=== PATIENT | female | born 1940 | race Caucasian/White ===

== ENCOUNTER 2023-09-01 17:22 | Observation (INO) | payer MEDICARE, OTHER, SELFPAY ==
--- OUTSIDE RECORDS SUMMARY | 2023-09-01 17:26 | XMS_ITS | Clinical Summary ---
Author Name Unknown Organization [facility] Address [place], [place] [address] Care Team Providers Care Mobile Home Laborer Name Role Phone Angel Lawson MD Primary Care Provider [phone] Allergies Active Allergy Reactions Criticality Noted Date Comments Lisinopril Hives Unknown 01/09/2007 Medications Medication Sig Dispensed Refills Start Date End Date Status methyl salicylate-menthol (CYRIL CAGE; MENTHOLATUM DEEP HEAT) ointment Apply topically to affected area(s) 3 times daily if needed for Arthritis or Pain. 0 8 Active medication order composerIndications:Acut e diastolic congestive heart failure (HC),Chronic bilateral low back pain without sciatica Motorized wheelchair diagnosis: chronic low back pain, weakness, diastolic CHF 1 unit 0 8 Active mupirocin (BACTROBAN OINTMENT) ointmentIndications:Epis taxis Apply a small amount (pea sized) with finger or cotton swab twice daily, pinch nostril closed 22 g 11 1 Active calcium carbonate (Calcium 600) 600 mg calcium (1,500 mg) tabletIndications:Osteop orosis screening Take 1 Tablet (600 mg) by mouth 2 times daily with meals. 180 Tablet 3 2 Active Walker - 4 wheelsIndications:Spinal stenosis of lumbar region without neurogenic claudication Walker with seat. For home use. Length of need: 99 1 Each 0 2 Active durable medical equipment (DME)Indications:Spinal stenosis of lumbar region without neurogenic claudication Recliner with lift 1 Each 0 2 Active fluticasone propion-salmeteroL (Advair HFA) 230-21 mcg/actuation inhalerIndications:Moder ate persistent asthma without complication Inhale 2 Puffs by mouth two times daily. 3 Each 3 2 Active potassium chloride (MICRO-K) 10 mEq Controlled-release capsuleIndications:Edema , unspecified type TAKE 1 CAPSULE DAILY NEEDED WITH THE LASIX 30 Capsule 11 3 Active furosemide (LASIX) 20 mg tabletIndications:Edema, unspecified type TAKE 1 TABLET DAILY NEEDED WITH THE POTASSIUM 30 Tablet 11 3 Active dronedarone (Multaq) 400 mg tab tabletIndications:PAF (paroxysmal atrial fibrillation) (HC) Take 0.5 Tablets (200 mg) by mouth two times daily with meals. 90 Tablet 3 3 Active isosorbide mononitrate (IMDUR) 30 mg extended release tablet 24 HourIndications:Acute on chronic diastolic congestive heart failure (HC) TAKE ONE-HALF (1/2) TABLET DAILY 45 Tablet 3 3 Active zolpidem (AMBIEN) 5 mg tabletIndications:Insomn ia due to medical condition Take 1 Tablet (5 mg) by mouth at bedtime. 30 Tablet 5 3 Active prednisoLONE acetate 1% ophthalmic (ECONOPRED PLUS, PRED FORTE, OMNIPRED) suspensionIndications:Nu clear sclerotic cataract of both eyes START DROPS IN AFFECTED EYE AFTER SURGERY, RIGHT EYE 07/03/2023 LEFT EYE 07/31/2023 . ONE DROP FOUR TIMES A DAY FOR THREE WEEKS. 5 mL 2 3 Active warfarin (COUMADIN) 2 mg tabletIndications:Paroxy smal atrial fibrillation (HC),Anticoagulation monitoring, INR range 2-3 Take by mouth 2 mg (2 mg x 1) every day in the evening OR as directed 0 3 Active docusate (COLACE) 100 mg capsule Take one to three capsule's daily as needed 0 3 Active HYDROcodone-acetaminophe n (5-325 mg/tablet)Indications:Co ntrolled substance agreement signed,Chronic bilateral low back pain without sciatica,Spinal stenosis of lumbar region without neurogenic claudication Take 1 tablet by mouth 3 times daily as needed for severe pain 90 Tablet 0 4 Active albuterol HFA (ProAir HFA) 90 mcg/actuation inhalerIndications:Asthm a, unspecified asthma severity, unspecified whether complicated, unspecified whether persistent Inhale 1-2 Puffs by mouth every 4 hours if needed for Shortness Of Breath. 25.5 g 0 4 Active metoprolol succinate (TOPROL XL) 50 mg sustained-release tabletIndications:Essent ial hypertension TAKE ONE-HALF TABLET DAILY 45 Tablet 2 4 Active atorvastatin (LIPITOR) 10 mg tabletIndications:Pure hypercholesterolemia Take 1 Tablet (10 mg) by mouth at bedtime. 90 Tablet 2 4 Active metoprolol succinate (TOPROL XL) 50 mg sustained-release tabletIndications:Essent ial hypertension TAKE ONE-HALF (1/2) TABLET DAILY 45 Tablet 3 4 Active albuterol HFA (PRO-AIR; VENTOLIN; PROVENTIL) 90 mcg/actuation inhalerIndications:Asthm a, unspecified asthma severity, unspecified whether complicated, unspecified whether persistent USE 1 TO 2 INHALATIONS EVERY 4 HOURS IF NEEDED FOR SHORTNESS OF BREATH 25.5 g 6 4 Active gabapentin (NEURONTIN) 300 mg capsuleIndications:Insom antwan due to medical condition TAKE 1 CAPSULE AT BEDTIME 90 Capsule 3 4 Active levothyroxine (SYNTHROID) 112 mcg tabletIndications:Hypoth yroidism, unspecified type Take 1 Tablet (112 mcg) by mouth once daily. 90 Tablet 2 4 Active albuterol HFA (ProAir HFA) 90 mcg/actuation inhalerIndications:Asthm a, unspecified asthma severity, unspecified whether complicated, unspecified whether persistent Inhale 1-2 Puffs by mouth every 4 hours if needed for Shortness Of Breath. 25.5 g 5 2 024 Discontin ued(Reord er (E-cancel not sent)) levothyroxine (SYNTHROID) 112 mcg tabletIndications:Hypoth yroidism, unspecified type TAKE 1 TABLET DAILY 90 Tablet 3 3 024 Discontin ued(Reord er (E-cancel not sent)) metoprolol succinate (TOPROL XL) 50 mg sustained-release tabletIndications:Essent ial hypertension TAKE ONE-HALF TABLET DAILY 45 Tablet 2 3 024 Discontin ued(Reord er (E-cancel not sent)) atorvastatin (LIPITOR) 10 mg tabletIndications:Pure hypercholesterolemia Take 1 Tablet (10 mg) by mouth at bedtime. 90 Tablet 0 3 024 Discontin ued(Reord er (E-cancel not sent)) HYDROcodone-acetaminophe n (5-325 mg/tablet)Indications:Co ntrolled substance agreement signed,Chronic bilateral low back pain without sciatica,Spinal stenosis of lumbar region without neurogenic claudication Take 1 tablet by mouth 3 times daily as needed for severe pain 90 Tablet 0 3 024 Discontin ued(Reord er (E-cancel not sent)) levothyroxine (SYNTHROID) 112 mcg tabletIndications:Hypoth yroidism, unspecified type Take 1 Tablet (112 mcg) by mouth once daily. 90 Tablet 1 4 024 Discontin ued(*Erro r/entry tech error) Active Problems Patient Care Coordination No te Formatting of this note migh t be different from the original. 01/10/2014 These are the most important things for my care team to know about me: ?? It's very important that my doctors are honest with me. ?? I don't want it sugarcoated. I want the blunt truth. ?? Do not talk to my children first. Talk to me because I am the one who has to arrange my life. ?? Don't go behind my back and give out information about me without telling me or getting my permission. 02/19/2013 Brittani Casanova has elected to enroll in the [employer] research project and meets inclusion criteria through diagnosis of heart failure. Paola Denney is assigned as [facility] Care Guide. Paola Denney .................... 02/19/2013 12:18 PM Problem Noted Date Diagnosed Date Cataract 07/31/2023 Opioid dependence, uncomplicated 10/06/2020 Morbid exogenous obesity 10/06/2020 Generalized anxiety disorder 03/05/2019 Depression, major, single episode, moderate 0 03/2019 Essential hypertension 07/07/2018 Prediabetes 11/03/2017 Chronic renal disease, stage 3, moderately decreased glomerular filtration rate between 30-59 mL/min/1.73 square meter 04/05/2016 Anticoagulation monitoring, INR range 2-3 2014 Controlled substance agreement signed 2014 Paroxysmal atrial tachycardia post AF ablation 0 03/25/2012 Epistaxis 03/25/2012 ICD (implantable cardiac defibrillator) in place 12/30/2011 SIMI 03/23/2010 AHI- 28.9 03/04/2011 Issue of repeat prescriptions 01/03/2011 Overview: Micaela #120/month. Spinal stenosis of lumbar re gion without neurogenic claudication 01/03/2011 Generalized osteoarthrosis, unspecified site 03/2011 Osteopenia 01/03/2011 Advance care planning 12/25/2010 Overview: Patient has identified Health Care Agent(s): Yes Add Health Care Agents: Health Care Agent(s): Primary Health Care Agent: Jazmín Cheung Relationship: Daughter (cell) Secondary Health Care Agent: Conservator: Relationship: Phone: Guardian: Relationship: Phone: Patient has Advance Care Plan Documents (Health Care Directive, POLST): POLST, Healthcare Directive, Statement of Treatment Preferences Patient has identified Specific Treatment Preferences: Yes On 06/14/16 Brittani expressed a desire to change her current Statement of Preferences at a future date. On 10/14/14, Brittani completed a new Healthcare Directive naming Jazmín Cheung as her primary healthcare agent. [phone]. Her son tSar Ibrahim is no longer her healthcare agent as of 10/14/14. Understanding of Illness and Disease [place]: Brittani identifies her medical condition as heart failure and describes it as life limiting. She identifies the following symptoms of her medical condition as being the most bothersome: limitations on cleaning the household, walking her dog Blue. Brittani said I have had to limit some of the usual cleaning responsibilities due to physical symptoms of fatigue and shortness of breath. (Paraphrase) Goals of Care: Brittani currently hopes to remain living independently at home for as long as possible, and to live as long as I can, to the best of my ability. Brittani also indicates she always wants Complete Honesty from her healthcare providers regarding her state of health. Brittani has shared that what is most important to her is to be able to communicate, and interact with others. Brittani indicates being on a ventilator would mean she couldn't do this, and this would not be acceptable. Brittani stated she saw her brother when he was on a ventilator, and was impacted very much by this experience. Quality of Life: The following present and future experiences are most important for Brittani to live well: walking with my dog blue, spending time playing cards and socializing with friends, reading, making sure Blue is cared for if I am unable, and living at home as long as possible. Brittani ernesto with serious challenges in her life: Family: Daughter(s) and Son(s) and Friends Brittani stated specifically her children help her through difficult times in life. Brittani identifies the following fears and worries about her medical care: having uncontrolled pain or symptoms, losing mental capacity, and most important to Brittani is to NOT be intubated or placed on a respirator; under any circumstances. Brittani has indicated a strong preference to not go to a fci. Of utmost importance to Brittani is that her children are ok with her dying; that they accept it. Brittani states currently some of her children are in denial about her current health condition, are are unable to view it, or discuss as a terminal illness. Treatment and Care Preferences: Past experiences in dealing with family and/or friends that have or been seriously ill include other family members. As a result of these experiences, Brittani expresses these health care preferences: - Offer food and liquids by mouth - Tube feeding though mouth or nose - Tube feeding directly into GI tract - IV fluid administration If/when Brittani is at the end-stage of her illness or terminally ill, she prefers to receive care at home with hospice. Summary Brittani's Treatment Preferences: LOW SURVIVAL; HIGH TREATMENT BURDEN: If Brittani suffered a serious complication, such that she was facing a prolonged hospital stay, required ongoing medical interventions, and the chance of living through the complication was low (for example, only 5 out of 100 would live), Brittani would choose: To stop all efforts to keep me alive (For me, quality of life is more important than length of life) Brittani stated; make me comfortable, no ventilator under any circumstances. to focus treatment on comfort and quality of life (Quality of life is more important than length of life to Brittani.) HIGH SURVIVAL; LOW FUNCTIONAL STATUS: If Brittani had a serious complication and had a good chance of living through the complication but it was expected that she would never be able to walk or talk again and would require 24 hour nursing care, she would choose: To stop all efforts to keep me alive (For me, quality of life is more important than length of life) I don't want to go to a fci. to focus treatment on comfort and quality of life (Quality of life is more important than length of life to Brittani.) HIGH SURVIVAL; LOW COGNITIVE STATUS: If Brittani had a serious complication and had a good chance of living through the complication but it was expected that she would never know who she was or who she was with and would require 24 hour nursing care, she would choose: To stop all efforts to keep me alive (For me, quality of life is more important than length of life) to focus treatment on comfort and quality of life (Quality of life is more important than length of life to Brittani.) CARDIO-PULMONARY RESUSCITATION (CPR): The facts, risks and benefits of CPR were discussed with Brittani. If she had a sudden event that caused her heart and breathing to stop, she WOULD want CPR attempted unless my physician determines any one of the following; I have an incurable illness or injury and am dying; OR I have no reasonable chance of survival if my heart stops' OR I have little chance of mcfp survival if my heart stops and the process of resuscitation would cause significant suffering. Goals of Treatment (POLST) Brittani selected LIMITED INTERVENTIONS AND TREAT REVERSIBLE CONDITIONS; Use of IV/IM Antibiotic treatment Offer food and liquids by mouth Tube feeding through mouth or nose Tube feeding directly into GI tract IV fluid administration DNI, and no mechanical ventilation. MECHANICAL VENTILATION: If Brittani had an episode where she was unable to breathe on her own, she would choose the following: NO MECHANICAL VENTILATOR do not attempt to assist breathing by non-invasive methods or mechanical ventilation Follow Up Plan: Brittani was encouraged to continue advance care planning discussions with her health care agent Star Ibrahim (son) as well as her other children. Designated Family Member: Star Ibrahim and primary care provider. Advance Care Planning discussion guide was given to Brittani and her health care agent for review. Brittani identified the following concerns during her advance care planning session: Brittani's primary concern as noted throughout this document was under no circumstances to be placed on a ventilator, or be intubated. Questions identified for her primary care provider: Brittani did not have questions at this time of her provider. Documents addressed during this advance care planning session: Health Care Agents identified. Primary health care agent is Star Ibrahim; secondary health care agent is Brittani's other children.. Statement of Treatment Preferences for advanced illness completed and scanned into the medical record. Recommendations/Plan: Brittani and her health care agent to discuss and review Advance Care Plan and completed POLST. Brittani to identify secondary health care agent, and discuss completed POLST with Star (Son) and her other children. Brittani and or health care agents to follow up with this mortgage loan underwriter (CLAUDE Montanez-[employer]) if and when there are questions related to Advance Care Planning, and/or Health Care Agent information/understanding. Brittani would benefit from: Home Care Care Navigation Help Desk Care Navigation brochure(s) was given to Brittani. Advance Care Planning recommendations and Brittani's concerns and questions were cc? ed to her primary provider. Interviewer: KATELYN Montanez, [facility] [phone] 10/13/2013 11:37 AM 10/07/2013 H/O CVA (cerebral vascular accident) 08/03/2010 Overview: -Hospitalized in [place] Superficial phlebitis 08/01/2010 Hyperlipidemia 07/06/2010 Major depression, recurrent 07/06/2010 Hypothyroidism 07/05/2010 Chronic back pain Fibromyalgia Paroxysmal atrial fibrillation Overview: - initial episode 08/01/10: s/p DCCV 08/03/2010 - return to afib: rate control and anticoagulation strategy - 12/03/2010 atrial fibrillation with VR 70's - associated systolic/diastolic acute CHF exacerbation -s/p successful complex atrial fibrillation ablation 02/03/2012 -03/25/2012 incidentally found in afib with RVR (on presentation for bloody nose) *given IV lopressor and converted to NSR - but recurrent afib RVR -03/25/2012 DCCV and start of Flecainide Asthma H/O Diastolic Congestive Heart Failure Overview: -acute exacerbation 07/2010 - associated low EF 45% and afib with RVR -acute exacerbation 12/03/2010 - associated low EF 45% and afib with controlled ventricular response Plan:If weight gain >2 lbs overnight, increase Furosemide (Lasix) to 40 mg twice daily and increase potassium supplement to 20 mEq twice daily that day. Forgetfulness Overview: Patient and daughter attribute this to increased stress at her apartment building. Resolved Problems Problem Noted Date Diagnosed Date Resolved Date Prediabetes 03/05/2019 03/29/2019 Morbid obesity with BMI of 40.0-44.9, adult 03/07/2017 11/02/2018 Right-sided thoracic back pain 12/20/2014 10/11/2021 Sudden cardiac 12/30/2011 019 Hematoma complicating a procedure 12/30/2011 11/11/2014 HTN (hypertension) 07/06/2010 2 Obesity, Class II, BMI 35-39.9 03/07/2017 Acute diastolic congestive heart failure 11/02/2018 Encounters Date Type Department Care Team Description 08/27/2023 Anticoagulation (warfarin) [facility] [address] [place] [address] [facility] Anticoagulation (Home care) 08/22/2023 9:40 AM PROGRAM MANAGER RN Office Visit [facility] [address] [place] [address] Terry Sandoval OD Post-op (3 Week Final IOL POV OS ) 08/22/2023 Travel 08/20/2023 Telephone [facility] [address] [place] [address] Angel Lawson MD Form 08/20/2023 Refill [facility] [address] [place] [address] Angel Lawson MD Refill Request 08/20/2023 Refill [facility] [address] [place] [address] Angel Lawson MD Refill Request (Metoprolol Succinate, Albuterol Hfa, Gabapentin) 08/20/2023 Refill [place] [address] [place] [address] Angel Lawson MD Refill Request (albuterol HFA (ProAir HFA) 90 mcg/actuation inhaler//levothyroxin e (SYNTHROID) 112 mcg tablet 90 Tablet 3 08/13/2022 - No/Sig: TAKE 1 TABLET DAILY//metoprolol succinate (TOPROL XL) 50 mg sustained-release tablet 45 Tablet 2/gabapentin (NEURONTIN) 300 mg capsule (Discontinued)//atorv astatin (LIPITOR) 10 mg tablet 90 Tablet) 08/18/2023 Telephone [place] [address] [place] [address] Angel Lawson MD Form (ORDERS) 08/13/2023 Anticoagulation (warfarin) [place] [address] [place] [address] [facility] Anticoagulation (Poct HC) 08/12/2023 Refill [place] [address] [place] [address] Angel Lawson MD Refill Request (Hydrocodone-acetamin ophen) 08/06/2023 Telephone [place] [address] [place] [address] Angel Lawson MD Concerns (water pill ) 08/06/2023 Telephone [place] [address] [place] [address] Angel Lawson MD Form 08/04/2023 Anticoagulation (warfarin) [address] [place] [address] [facility] Anticoagulation (Home Care ) 08/01/2023 9:40 AM PROGRAM MANAGER RN Office Visit [facility] [address] [place] [address] Terry Sandoval, OD Post-op (1 Day PO OS) 07/31/2023 8:54 AM PROGRAM MANAGER RN - 07/31/2023 9:37 AM PROGRAM MANAGER RN Surgery [address] [address] Singh Valentin MD LEFT CATARACT EXTRACTION WITH LENS IMPLANT 07/31/2023 8:36 AM PROGRAM MANAGER RN Anesthesia Event [address] [address] Genoveva Sy MD 07/31/2023 7:17 AM PROGRAM MANAGER RN - 07/31/2023 9:35 AM PROGRAM MANAGER RN Hospital Encounter [address] [address] Singh Valentin MD Discharge Disposition: Home Self Care 07/31/2023 Travel 07/31/2023 Telephone [facility] [address] [place] [address] Angel Lawson MD Form (ORDER) 07/30/2023 Anticoagulation (warfarin) [facility] [address] [place] [address] [facility] Anticoagulation (Home care) 07/25/2023 3:00 PM PROGRAM MANAGER RN Ancillary Procedure [facility] [address] [place] [address] 07/25/2023 2:10 PM PROGRAM MANAGER RN Preop Visit [facility] [address] [place] [address] Angel Lawson MD Preoperative Exam (DOS 07/31/23 left eye/) 07/25/2023 Telephone [facility] [address] [place] [address] Angel Lawson MD Results 07/25/2023 Travel 07/25/2023 Telephone [facility] [address] [place] [address] Angel Lawson MD Form (HHC and ORDERS) 07/23/2023 Anticoagulation (warfarin) [facility] [address] [place] [address] [facility] Anticoagulation (Home Care) 07/22/2023 Lab Requisition [facility] [phone] Unknown, Doctor 07/22/2023 Telephone [facility] [address] [place] [address] Angel Lawson MD Form (ORDERS) 07/18/2023 Telephone [facility] [address] [place] [address] Angel Lawson MD Form (PHYSICIAN'S ORDER) 07/17/2023 Telephone [facility] [address] [place] [address] Angel Lawson MD Anticoagulation (Home Care- delay of next INR) 07/17/2023 Telephone [facility] [address] [place] [address] Angel Lawson MD Anticoagulation (INR >5 dosing review) 07/16/2023 Lab Requisition [facility] [phone] Unknown, Doctor 07/16/2023 Anticoagulation (warfarin) [facility] [address] [place] [address] [facility] Anticoagulation ([facility]) 07/11/2023 9:40 AM PROGRAM MANAGER RN Office Visit [facility] [address] [place], [place] [address] Terry Sandoval OD Post-op (1 Week IOL POV OD ) 07/11/2023 Telephone [facility] [address] [place] [address] Angel Lawson MD Form 07/11/2023 Telephone [facility] [address] [place] [address] Angel Lawson MD Questions (About the patients wheelchair) 07/11/2023 Travel 07/11/2023 Telephone [facility] [address] [place] [address] Angel Lawson MD Form (PHYSICIAN ORDER) 07/04/2023 9:40 AM PROGRAM MANAGER RN Office Visit [facility] [address] [facility] [place] [address] Terry Sandoval, OD Post-op (1 Day POV IOL OD ) 07/04/2023 Refill [facility] [address] [facility] [place] [address] Angel Lawson MD Refill Request (Hydrocodone-acetamin ophen) 07/03/2023 10:08 AM PROGRAM MANAGER RN Anesthesia Event [address] [address] Reno Parada MD [place], Lindsey Jo, CRNA 07/03/2023 10:07 AM PROGRAM MANAGER RN - 07/03/2023 10:42 AM PROGRAM MANAGER RN Surgery [address] [address] Singh Valentin MD RIGHT CATARACT EXTRACTION WITH LENS IMPLANT 07/03/2023 8:27 AM PROGRAM MANAGER RN - 07/03/2023 11:25 AM PROGRAM MANAGER RN Hospital Encounter [address] [address] Singh Valentin MD Discharge Disposition: Home Self Care 07/03/2023 Nurse Triage [facility] [address] [facility] [place] [address] Angel Lawson MD Post-op Pain/problem 07/03/2023 Telephone [facility] [address] [place] [address] Singh Valentin MD surgery update 07/03/2023 Telephone [facility] [address] [place] [address] Angel Lawson MD Form (ORDER) 07/03/2023 Travel 07/02/2023 Anticoagulation (warfarin) [facility] [address] [place] [address] [facility] Anticoagulation (Home Care ) 06/27/2023 1:20 PM PROGRAM MANAGER RN Preop Visit [facility] [address] [place] [address] Angel Lawson MD Preoperative Exam (DOS 07/03/23 right eye first then they will do the 2nd eye 2 weeks later); Flu Shot; Immunization/Injectio n (COVID-19 vaccine); Medicare ANNUAL (subsequent) Visit 06/27/2023 Travel 06/24/2023 Orders Only [facility] [address] [place] [address] Singh Valentin MD <No scans attached> 06/18/2023 Refill [facility] [address] [place] [address] Angel Lawson MD Refill Request (Atorvastatin/) 06/14/2023 Refill [facility] [address] [place] [address] Angel Lawson MD Refill Request (Zolpidem) 06/09/2023 Telephone [facility] [address] [place] [address] Angel Lawson MD Form (PHYSICIAN ORDER) 06/06/2023 Refill [facility] [address] [place] [address] Angel Lawson MD Refill Request (Warfarin) 06/04/2023 Anticoagulation (warfarin) [facility] [address] [place] [address] Clinic[facility] ([facility]) from Last 3 Months Immunizations Name Administration Dates Next Due COVID-19 Vaccine Spikevax (M oderna 50mcg/0.5mL) 12YO+ [id number] Formula PF 06/27/2023 COVID-19 vaccine (Pfizer-Bio NTech 30mcg/0.3mL) PF, MDV 08/30/2020,08/09/2020 Influenza A (H1N1), Inactiva kathleen (Age 6-35 Mos) 07/12/2009 Influenza, High-dose Inactivated 017,03/22/2016,08/09/2015,2013 Influenza, IIV3 (Age >=3 years) 09/08/2013,04/14,07/05/2010 Influenza, Inactivated AIIV4 (Age 65+ Years) Preserv Free 06/27/2023,04/02/2022,04/23/2021,2019 Influenza, Inactivated IIV3 (Age 65+ Years) Preserv Free 07/07/2019,06/24/2018 Influenza, Whole Virus 06/30/2003 Pneumococcal Poly,23-Valent (Pneumovax) 03/22/2016,12/20/2010,06/30/2003 Pneumococcal conj 13-Valent (Prevnar 13) 04/02/2017 Td (Age >=7 Years) 04/30/2004 Tdap 12/20/2010 Family History Medical History Relation Name Comments Cancer Brother lung Other Father gout Cancer-breast Maternal Aunt 2x Genetic Other asthma- grandki ds~Father and mother - early CAD~no Dm, Other Sister AAA Relation Name Status Comments Brother Father Maternal Aunt Mother Other Sister Social History Tobacco Use Types Packs/Day Years Used Date Smoking Tobacco: Never Smokeless Tobacco: Never Tobacco Cessation:Counseling Given: Yes Alcohol Use Standard Drinks/Week Comments No 0 (1 standard drink = 0.6 oz pur e alcohol) PHQ-2 Answer Date Recorded PHQ-2 TOTAL SCORE 1 06/27/2023 Social Connections Answer Date Recorded Frequency of Communication with Friends and Fami ly Not on file 02/21/2023 Financial Resource Strain Answer Date R ecorded Difficulty of Paying Living Expenses 3 02/20/2022 Difficulty of Paying Living Expenses Not on file 02/20/2022 Food Insecurity Answer Date Recorded Worried About Running Out of Food in the Last Ye ar 1 02/20/2022 Transportation Needs Answer Date Record ed Lack of Transportation (Medical) 1 02/20/2022 Housing Stability Answer Date Recorded Unable to Pay for Housing in the Last Year 1 02/20/2022 Sex and Gender Information Value Date Recorded Sex Assigned at Not on file Gender Identity Not on file Sexual Orientation Not on file Obstetrics History Last Filed Vital Signs Vital Sign Reading Time Taken Comments Blood Pressure 134/81 07/31/2023 9:23 AM PROGRAM MANAGER RN Pulse 70 07/31/2023 9:23 AM PROGRAM MANAGER RN Temperature 36.2 ??C (97.1 ??F) 07/31/2023 9:06 AM CS T Respiratory Rate 20 07/31/2023 9:23 AM PROGRAM MANAGER RN Oxygen Saturation 92% 07/31/2023 9:23 AM PROGRAM MANAGER RN Inhaled Oxygen Concentration - - Weight 100.2 kg (221 lb) 07/31/2023 7:29 AM PROGRAM MANAGER RN Height 160 cm (5' 3) 07/31/2023 7:29 AM PROGRAM MANAGER RN Body Mass Index 39.15 07/31/2023 7:29 AM PROGRAM MANAGER RN Plan of Treatment Health Maintenance Due Date Last Done Comments Zoster (shingles) series for age 50+ (1 of 2) 1992 Tetanus booster 12/20/2020 12/20/2010, 04/30/2004 Medicare Wellness for age 65+ 06/26/2024, 04/02/2022, 04/26/2021, Additional history exists Depression screening for age 12+ 06/27/2024 06/27/2023, 04/05/2022, 04/04/2022, Additional history exists BMI (ht and wt on same day) for age 18+ 07/25/2024 07/25/2023, 06/27/2023, 04/02/2022, Additional history exists Tdap Completed 12/20/2010 DEXA/DXA scan for age 65+ Completed 2010, 12/20/2010 (Postponed) Pneumococcal series for age 65+ Completed 04/02/2017, 03/22/2016, 12/20/2010, Additional history exists COVID-19 vaccine series Completed 06/27/20 23, 08/30/2020, 08/09/2020 Influenza for age 65+ Completed 06/27/2023 , 04/02/2022, 04/23/2021, Additional history exists Medical Devices Implanted Type Area Filling Hand Device Identifier Shelf Expiration Date Model / Serial / Lot Icd Only-12/03/2011 Implanted:02/2012 (Quantity not on file) ICD Only [employer] [id number] / [id number] / Iol [place] Preload 1 Pc Clear 6mm 21.00 Diopter Tecnis - [id number] Implanted:Qty : 1 on 07/31/2023 by Singh Valentin MD at [facility] Opthalmology Implants Left: Eye [employer] 02/23/2026 [id number] / [id number] / N/A Iol [place] Preload 1 Pc Clear 6mm 20.50 Diopter Tecnis - [id number] Implanted:Qty : 1 on 07/03/2023 by Singh Valentin MD at [facility] Right: Eye [employer] 03/10/2026 [id number] / [id number] / NA Procedures Procedure Name Priority Date/Time Associated Diagnosis Comments EXTRACAPSULAR CATARACT EXTRACTION INTRAOCULAR LENS IMPLANT 07/31/2023 8:27 AM PROGRAM MANAGER RN CATARACT Case Notes LEFT EYEMAC/LOCAL Special Needs CHART MADE Angel Lawson MD XR SHOULDER 3 VIEWS LEFT Routine 07/25/2023 3:12 PM PROGRAM MANAGER RN Chronic left shoulder pain PROTIME-INR Routine 07/16/2023 1:15 PM PROGRAM MANAGER RN EXTRACAPSULAR CATARACT EXTRACTION INTRAOCULAR LENS IMPLANT 07/03/2023 9:58 AM PROGRAM MANAGER RN CATARACT Case Notes RIGHT EYEMAC/LOCAL Special Needs CHART MADE Angel Lawson MD 06/27/2023 from Last 3 Months Results * XR SHOULDER 3 VIEWS LEFT (07/25/2023 3:12 PM PROGRAM MANAGER RN) Anatomical Region Laterality Modality SHOULDERS, SHOULDER L Computed R adiography 07/25/2023 3:33 PM PROGRAM MANAGER RN Narrative 07/25/2023 3:33 PM PROGRAM MANAGER RN For Patients: ??As a result of the Cures Act, medical imaging exams and procedure reports are released immediately into your electronic medical record. ??You may view this report before your referring provider. ??If you have questions, please contact your health care provider. 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 Alignment is normal. No sign of acute fracture. No significant changes from the prior exam. Dictated by Keith Hill MD @ Jul 25 2023 ??3:33PM (Electronically Signed) ?? Procedure Note Keith Hill MD - 07/25/2023 For Patients: As a result of the Cures Act, medical imagingexams and procedure reports are released immediately into your electronicmedical record. You may view this report before your referring provider.If you have questions, please contact your health care provider. Indication: Pain Technique: Three views left shoulder Comparison: 11/30/2021 Findings/Impression: Hardware from a joint arthroplasty is in satisfactory position withoutevidence of loosening or infection. Alignment is normal. No sign of acutefracture. No significant changes from the prior exam. Dictated by Keith Hill MD @ Jul 25 2023 3:33PM (Electronically Signed) Angel Lawson MD GENERAL IMAGING * (ABNORMAL) PROTIME-INR (07/16/2023 1:15 PM PROGRAM MANAGER RN) INR 5.1(H) <1.3 07/16/2023 10:05 PM PROGRAM MANAGER RN [facility] PROTIME 53.6(H) 10.3 - 12.3 sec 07/16/2023 10:05 PM PROGRAM MANAGER RN [facility] Blood BLOOD SPECIMEN / Unknown Client Collect / Unknown 07/16/2023 1:15 PM PROGRAM MANAGER RN 07/16/2023 8:49 PM PROGRAM MANAGER RN Narrative [facility] - 07/16/2023 10:05 PM PROGRAM MANAGER RN ?Therapeutic Range 2.0-3.0 for most anticoagulated patients 2.5-3.5 or 4.0 for high risk patients The INR is only used for patients on stable oral anticoagulant therapy. It makes no significant contribution to the diagnosis or treatment of patients whose Protime is prolonged for other reasons. INR results are increased when heparin levels exceed 1.0 U/mL, which corresponds to an aPTT >125 seconds if the patient is on UFH. Doctor Unknown HEMATOLOGY [facility] [address] [place] [id number], from Last 3 Months Advance Directives Documents on File Type Date Recorded Patient Heading And Priming Operator Expl anation Healthcare Directive 10/19/2014 9:49 AM Treatment Guidelines 12/06/2020 POLST 06/14/2016 3:01 PM FARM - 06/14/2016 Healthcare Directive 11/22/2013 1:[address] atement of Prefecnces POLST 10/28/2013 9:31 AM FARM - Latest Code Status on File Code Status Date Activated Date Inactivated Comments Full Code 04/25/2020 2:10 PM 04/25/2020 5:28 PM Question Answer Comments Code Status Discussion: Not Discussed Code Status History Code Status Date Activated Date Inactivated Comments Full Code 03/29/2019 11:25 PM 04/02/2019 6:25 PM Question Answer Comments Code Status Discussion: Not Discussed Full Code 09/15/2017 6:09 PM 09/21/2017 1:20 PM Full Code 08/02/2015 12:28 PM 08/02/2015 7:23 PM Full Code 06/06/2015 10:17 AM 06/06/2015 3:05 PM Care Teams Mobile Home Laborer Relationship Specialty [place] [id number] [place] [address] PCP - General Family Practice 04/02/22
--- OUTSIDE RECORDS SUMMARY | 2023-09-01 17:26 | XMS_ITS | Continuity of Care Document ---
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 It does not include entries that were removed or entered in error. Problem Status Onset Date Problem Type Date of Resolution Comments Source visit for: single system exam gynecological Active Condition JUVENAL Musa HX JEET BUT SHE IS UNSURE IF SHE STILL HAS HER OVARIES. SHE STATES THAT ONE DR TOLD HER SHE DID NOT HAVE THEM, ANOTHER TOLD HER SHE DID. PT C FAMHX: M/MATERNAL AUNTS C OVARIAN CA. LAST MMG NOV 01, NL PER PT, SHE JUST GOT HER LETTER. WILL ORDER PELVIC US TO VERIFY OVARIES PRESENT OR ABSENT. STOPPED PREMARIN. FAMHX OVARIAN AND DISTANT FAMHX BRCA. DoD angioedema Active Condition NOW IMPROVED.CONT PREDNISONE UD. DoD visit for: administrative purpose Inactive Condition DoD vitamin B12 deficiency Active Condition DoD gastroenteritis Active Condition RESO LVED PER PT. TODAY DENIES SIMILAR SX. CHECK BMP ABOVE.CONT HYDRATION. DoD lumbago Active Condition Pt c/o Hx arthritis all over, needs bilat hip replacements. Denies XRays since eval at [facility]. DoD restless legs syndrome Active Condition MAY CONT AMBIEN UD. MAY CONT TO NOT TAKE KLONOPIN. WILL CONSIDER RESTARTING P PT B12 EVAL COMPLETE. DoD soft tissue pain in lower extremities Inactive Condition RLS -vs- l eg cramps.check labs as above.check B12/folate. 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 Tolerating and current meds work. DoD arthralgias multiple sites Active Condition HX GENERAL ARTHRALGIAS, LBP, BILAT HIP PAIN. CONT VICODIN UD. 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 One Neb bid c albuterol and Atrovent, x one week.cont Advair 250/50, 2 puffs po bid. Add Atrovent MDI 2 puffs qid. AM and PM Atrovent by Neb as above. DoD atypical chest pain Active Condition f/u c Cardiology as scheduled in 2 days. Discussed CP precautions. DoD myalgia and myositis Active Condition Cont Vicodin bid UD. DoD shortness of breath Active Condition Pt c Hx asthma. Will eval if asthma -vs- other etio for SOB. DoD Patient Counseling: Inactive Condition D oD Benign essential hypertension Active Condition Pt is on hctz, not at goal today but in pain and previously had been doing well. DoD ankle joint pain Active Condition I a m afraid that this pt is going to have prolonged pain in this joint from arthritis and trauma. Will image with an MRI and refer to Dr. Funez, her orthopedist, for evaluation as the plain films look neg for fx today. Will refill vicodin for pain as she will be out in 1-2 weeks. 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 Physical therapy will see her today.Rest/Heat /stretching/Can also discuss with orthopedicsFlex eril/Vicodin DoD visit for: issue repeat prescription Inactive Condition DoD carpal tunnel syndrome Active Condition fitted with new right wrist brace DoD impetigo Inactive Condition Impetigo l eft upper lip prob secondary to neuroexcoriatio n. Bactroban and if does not resolve to derm for excision when returns from [facility] chronic asthmatic bronchitis Active Condition Emphasized compliane to Advair preventive inhaler. (Not refilled sicne October) Needs to be taken daily to be effective and to reduce acute exacerbations, especially when travelling DoD depression Active Condition CONT MÓNICA XA 40MG DAILY.ADD WELLBUTRIN SR 150MG PO QAM. DoD hypothyroidism Active Condition DoD essential hypertension benign Active Condition PT C STA BLE Cr C LASIX 40MG DAILY. PT DID NOT TAKE LASIX YESTERDAY OR TODAY. WILL CONT LASIX UD F HTN AND EDEMA. WILL REPEAT BMP TODAY.PT TO F/U C IM UD. LAST EVAL YESTERDAY. NO MED CHANGES WERE MADE-PER PT. 2006 LABS INCLUDED IN NOTE, COPY GIVEN TO PT FOR IM CARE. DoD Medications Combined list of outpatient medications from Department of Defense and Veterans Affairs facilities.Medications provided include 1) outpatient medications from the last 15 months, and 2) patient-reported medications. Medication Details Route Status Patient Instructions Prescription Expires Prescription Number Last Dispense Date Ordering Provider Order Date Source ALBUTEROL SULFATE HFA (albuterol sulfate), 90 MCG, HFA AER AD, INHALATION, TEVA [place], 8.5 g CANISTER Cancele d [id number] : 2023 Pharmac y Data Transac tion Service Facilit y ALBUTEROL SULFATE HFA (albuterol sulfate), 90 MCG, HFA AER AD, INHALATION, TEVA [place], 8.5 g CANISTER Active [id number] 4 2023 Pharmac y Data Transac tion Service Facilit y ATORVASTATI N CALCIUM (ATORVASTAT IN CALCIUM), 10 MG, TABLET, ORAL, APOTEX CARMELO, 1000 ea. BOTTLE Cancele d [id number] : 2023 Pharmac y Data Transac tion Service Facilit y ATORVASTATI N CALCIUM (ATORVASTAT IN CALCIUM), 10 MG, TABLET, ORAL, APOTEX CARMELO, 1000 ea. BOTTLE Active [id number] 4 2023 Pharmac y Data Transac tion Service Facilit y GABAPENTIN (gabapentin ), 300 MG, CAPSULE, ORAL, [employer] 1000 ea. BOTTLE Active [id number] 4 2023 Pharmac y Data Transac tion Service Facilit y ISOSORBIDE MONONITRATE ER (isosorbide mononitrate ), 30 MG, TAB ER 24H, ORAL, [employer] 500 ea. BOTTLE Active [id number] 4 2023 Pharmac y Data Transac tion Service Facilit y LEVOTHYROXI NE SODIUM (levothyrox ine sodium), 112 MCG, TABLET, ORAL, AMNEAL PHARMACE, 100 ea. BOTTLE Cancele d [id number] : 2023 Pharmac y Data Transac tion Service Facilit y LEVOTHYROXI NE SODIUM (levothyrox ine sodium), 112 MCG, TABLET, ORAL, AMNEAL PHARMACE, 100 ea. BOTTLE Active [id number] 4 2023 Pharmac y Data Transac tion Service Facilit y METOPROLOL SUCCINATE (metoprolol succinate), 50 MG, TAB ER 24H, ORAL, [employer] 1000 ea. BOTTLE Cancele d [id number] : 2023 Pharmac y Data Transac tion Service Facilit y METOPROLOL SUCCINATE (metoprolol succinate), 50 MG, TAB ER 24H, ORAL, [employer] 1000 ea. BOTTLE Active [id number] 4 2023 Pharmac y Data Transac tion Service Facilit y MULTAQ (DRONEDARON E HYDROCHLORI DE), 400 MG, TABLET, ORAL, SANOFI-AVEN TIS, 60 ea. BOTTLE Active [id number] 4 2023 Pharmac y Data Transac tion Service Facilit y Allergies, Adverse Reactions, Alerts Combined list of allergies from Department of Defense and Veterans Affairs facilities. It does not include entries that were removed or entered in error. Substance Category Reaction Severity Reaction type Status Date Reported Comments Source LISINOPRIL (LISINOPRIL) Drug allergy (disorder) Anaphylaxis active 7 [employer] Immunizations Combined list of available immunizations from the Department of Defense and Veterans Affairs facilities. Immunization Series Date Given Administered By Site Reaction Lot Number CVX Code Drug Wire Mill Rover Status Comments Source Pneumococcal conjugate PCV 13 2016 REA FLORES () Not Given Pneumococ ulises conjugate PCV 13 DoD Influenza, seasonal, injectable, preservative free 2010 SHYAM FRANCISCO [employer] (NOV) Not Given Influenza , seasonal, injectabl e, preservat timothy free DoD Novel influenza-H1N 1-09, preservative- free, injectable 1 2008 Unknown, Provider [id number] Sanofi Pasteur (PMC) complet ed Novel influenza -[id number], preservat timothy-free, injectabl e DoD tetanus and diphtheria toxoids, adsorbed, preservative free, for adult use (2 Lf of tetanus toxoid and 2 Lf of diphtheria toxoid) 1 2003 Unknown, Provider [id number] Sanofi Pasteur (PMC) complet ed tetanus and diphtheri a toxoids, adsorbed, preservat timothy free, for adult use (2 Lf of tetanus toxoid and 2 Lf of diphtheri a toxoid) [facility] influenza virus vaccine, whole virus 1 2002 Unknown, Provider [id number] [employer] (PWJ) complet ed influenza virus vaccine, whole virus DoD pneumococcal polysaccharid e vaccine, 23 valent 1 2002 Unknown, Provider [id number] Merck (MSD) complet ed pneumococ ulises polysacch aride vaccine, 23 valent DoD Encounters Combined list of: 1) Encounters from Department of Veterans Affairs facilities going back up to thelast 18 months. 2) Encounters from the Department of Defense facilities going back up to 280 months. Location Location Details Encounter Type Encounter Number Reason For Visit Attending Provider ADM Date DC Date Status Disposition Source [employer]([facility]) OUTPATIENT [id number] THEO Garcia 04/30 Released w/o Limitations [employer]) [employer]) TELE CONSULT [id number] REFTHEO LENZ 05/02 [facility]) OUTPATIENT [id number] EAR AND THROAT PAIN GENARO RIVERO 05/18 Released w/o Limitations [facility]) [facility]) TELE CONSULT [id number] RADHA ABRAMS 07/02 [employer]) [employer]) TELE CONSULT [id number] RADHA Wallis 07/12 [facility]) TELE CONSULT [id number] REFGENARO PENA 07/17 [facility]) OUTPATIENT [id number] LEFT SHOULDE R JAMEY AGUILA 07/18 Released w/o Limitations [employer]) [employer]([facility]) OUTPATIENT [id number] Well Woman exam RADHA JAIMES 07/23 Released w/o Limitations [employer]([facility]) [employer]([facility]) TELE CONSULT [id number] RDAHA ABRAMS 07/31 [employer]([facility]) [employer]([facility]) OUTPATIENT [id number] MED READJUS TMENT PER RADHA MCCORMACK 08/30 Released w/o Limitations [employer]) [facility] [facility] TELE CONSULT [id number] Med refill MAYRA GUERIN 10/01 [employer] [facility] [employer]([facility]) TELE CONSULT [id number] RADHA Abrams 10/22 [employer]) [employer]([facility]) TELE CONSULT [id number] med refill MAYRA GUERIN 10/29 [employer]) [employer]([facility]) OUTPATIENT [id number] REG FELIX THEO Cresencio 11/12 Released w/o Limitations [employer]) [employer]([facility]) TELE CONSULT [id number] med refill MAYRA GUERIN 11/28 [employer]) [employer]([facility]) TELE CONSULT [id number] med refill MAYRA GUERIN 12/27 [employer]) [employer]([facility]) OUTPATIENT [id number] bp check per RADHA Willis 01/23 Released w/o Limitations [employer]([facility]) [employer]([facility]) TELE CONSULT [id number] Rx refill MAYRA GUERIN 02/12 [employer]) [employer]([facility]) OUTPATIENT [id number] SORE ON LIP, ASTHMA PT WITH PERSIST ENT COUGH RADHA JAIMES 03/04 Released w/o Limitations [employer]([facility]) [employer]([facility]) TELE CONSULT [id number] med refill MAYRA GUERIN 04/02 [employer]) [employer]([facility]) TELE CONSULT [id number] PT IS DONE WITH CIPRIANO RODRÍGUEZ 04/23 [employer]) [employer]([facility]) TELE CONSULT [id number] REFILL MEDS MAYRA GUERIN 06/24 [employer]) [employer]) TELE CONSULT [id number] RENEWAL FOR NICHO CHANG 07/24 [facility]) [employer]([facility]) OUTPATIENT [id number] FOLLOW UP FALL LAST MONTH, SHOULDE R AND KNEE X2 APPTS IRVIN ASKEW 08/22 Released w/o Limitations [employer]) [employer]) TELE CONSULT [id number] MED RENEWAL NICHO CHING 11/07 [facility]) [employer]) OUTPATIENT [id number] RT FT SORE/AN KLE DOWN/FE LL SHIRIN W, CHOLO W 12/11 Released w/o Limitations [employer]([facility]) [employer]) TELE CONSULT [id number] NEEDS MEDS NICHO CHING 12/18 [facility]) [employer]) TELE CONSULT [id number] MED REFIL NICHO CHING 12/24 [employer]) [employer]([facility]) TELE CONSULT [id number] MED REQUEST NICHO DUNCAN 05/14 [employer]([facility]) [employer]([facility]) OUTPATIENT [id number] OVER 40 PHYSICA L MICHELLE DONIS 05/27 Released w/o Limitations [employer]([facility]) [employer]([facility]) OUTPATIENT [id number] f/u per MICHELLE Marx 06/02 Released w/o Limitations [employer]([facility]) [employer]([facility]) OUTPATIENT [id number] F/U IRREGUL AR HEART BEAT MICHELLE DONIS 06/26 Released w/o Limitations [employer]) [employer]([facility]) TELE CONSULT [id number] MED REQUEST NICHO DUNCAN 07/29 [employer]) [employer] [facility] OUTPATIENT [id number] RIVER GUADALUPE 08/12 Released w/o Limitations [employer] [facility] [employer] [facility] OUTPATIENT [id number] RIVER GUAD[place]PE 08/19 Released w/o Limitations [employer] [facility] [employer] [facility] OUTPATIENT [id number] R[place] GUAD[place] 08/26 Released w/o Limitations [employer] [facility] [employer]) TELE CONSULT [id number] Refill of Meds NICHO DUNCAN 08/26 [employer]) [employer]) OUTPATIENT [id number] follow up on results MICHELLE DONIS 09/01 Released w/o Limitations [employer]) [employer] [facility] OUTPATIENT [id number] R[place] GUAD[place] 09/03 Released w/o Limitations [employer] [facility] [employer]) OUTPATIENT [id number] Follow up on lab and medicat ions MICHELLE DONIS 09/08 Released w/o Limitations [employer]) [employer]) OUTPATIENT [id number] f/u meds MICHELLE DONIS 09/16 Released w/o Limitations [employer]) [employer] [facility] OUTPATIENT [id number] [place] GU[place] 09/16 Released w/o Limitations [employer] [facility] [employer]) OUTPATIENT [id number] B-12 NATALIA TOBIAS 09/16 Released w/o Limitations [employer]) [employer]) OUTPATIENT [id number] f/u medMICHELLE Valentino 09/23 Released w/o Limitations [employer]) [employer]) OUTPATIENT [id number] b12 YOLANDA Arrington 09/23 Released w/o Limitations [employer]) [employer] [facility] OUTPATIENT [id number] [place] 09/23 Released w/o Limitations [employer] [facility] [employer]) TELE CONSULT [id number] Needs a refill of Premari n .625MG Tab NICHO DUNCAN 09/30 [employer]) [employer] [facility] OUTPATIENT [id number] [place] GUAD[place] 09/30 Released w/o Limitations [employer] [facility] [employer]) OUTPATIENT [id number] B-12 Tahmina bhatia NUJESÚS 09/30 Released w/o Limitations [employer]) [facility] [facility] OUTPATIENT [id number] [place] 10/07 Released w/o Limitations [employer] [facility] [employer]) OUTPATIENT [id number] YOLANDA TARANGO 10/07 Released w/o Limitations [employer]) [employer]([facility]) TELE CONSULT [id number] REFERRE D TO URGENT CARE NICHO DUNCAN 10/08 [employer]) [employer]) OUTPATIENT [id number] follow up MICHELLE DONIS 10/09 Released w/o Limitations [employer]) [employer]) OUTPATIENT [id number] Cyanoco balamin Shot NATALIA TOBIAS Dalia 10/16 Released w/o Limitations [employer]) [employer]([facility]) OUTPATIENT [id number] F/U INSOMNI A AND F/U LAB TESTS MICHELLE DONIS 10/17 Released w/o Limitations [employer]) [employer] [facility] OUTPATIENT [id number] [place] 10/28 Released w/o Limitations [employer] [facility] [employer]) OUTPATIENT [id number] Depo Shot Injecti on NATALIA TOBIAS L 10/28 Released w/o Limitations [employer]) [facility] [facility] OUTPATIENT [id number] [place] 11/11 Released w/o Limitations [employer] [facility] [employer]) TELE CONSULT [id number] MED REQUEST NICHO DUNCAN 11/25 [employer]) [employer] [facility] OUTPATIENT [id number] [place] 11/25 Released w/o Limitations [employer] [facility] [employer]) OUTPATIENT [id number] ANNUAL WELL-WO MAN; NEEDS PREMARI N MICHELLE ADAM 11/27 Released w/o Limitations [facility]) [facility] OUTPATIENT [id number] [place] 12/09 Released w/o Limitations [facility]) TELE CONSULT [id number] MED REQUEST NICHO CHING 12/12 [facility]) Procedures Combined list of: 1) Procedures from Department of Veterans Affairs facilities going back up to thelast 18 months, not all VA non-surgical procedures are included; 2) All procedures from the Department of Defense facilities. Procedure Procedure Type Code Date Perfomer Shola Sun e Psychotherapy Individual Approximately 45 Minutes 11/25/2006 [place] Psychotherapy Individual Approximately 45 Minutes 11/11/2006 [place] Physician Supervised Injection Intramuscular 10/28/2006 NATALIA TOBIAS Injection, vitamin B-12 cyanocobalamin, up to 1,000 mcg 10/28/2006 NATALIA TOBIAS Psychotherapy Individual Approximately 45 Minutes 10/28/2006 [place] Injection, vitamin B-12 cyanocobalamin, up to 1,000 mcg 10/16/2006 NATALIA TOBIAS Physician Supervised Injection Intramuscular 10/16/2006 NATALIA TOBIAS Injection, vitamin B-12 cyanocobalamin, up to 1,000 mcg 10/07/2006 YOLANDA TARANGO Physician Supervised Injection Intramuscular 10/07/2006 YOLANDA TARANGO Psychotherapy Individual Approximately 45 Minutes 10/07/2006 [place] Physician Supervised Injection Intramuscular 09/30/2006 JESÚS JUDGE Psychotherapy Individual Approximately 45 Minutes 09/30/2006 [place] Physician Supervised Injection Intramuscular 09/23/2006 YOLANDA TARANGO Psychotherapy Individual Approximately 45 Minutes 09/23/2006 [place] Physician Supervised Injection Intramuscular 09/16/2006 NATALIA TOBIAS Injection, vitamin B-12 cyanocobalamin, up to 1,000 mcg 09/16/2006 NATALIA TOBIAS Dalia DoD Psychotherapy Individual Approximately 45 Minutes 09/16/2006 [place] DoD Psychotherapy Individual Approximately 45 Minutes 09/03/2006 [place] DoD Psychotherapy Individual Approximately 45 Minutes 08/26/2006 IRVER GUADALUPE DoD Psychotherapy Individual Approximately 45 Minutes 08/19/2006 R[place] GUAD[place] [facility] ECG 12-Lead ECG 12-Lead [id number] 06/03/2006 MICHELLE DONIS [facility] Respiratory Equip IPPB Related Equip Nebulizer Respiratory Equip IPPB Related Equip Nebulizer [id number] 06/03/2006 JEWELS MICHELLE [facility] Spirometry Post-bronchodilator Spirometry Post-bronchodilato r [id number] 06/03/2006 MICHELLE DONIS [facility] Spirometry Pre-bronchodilator Spirometry Pre-bronchodilator [id number] 06/03/2006 MICHELLE DONIS [facility] ECG 12-Lead ECG 12-Lead [id number] 05/27/2006 MICHELLE DONIS [facility] Splinting Wrist Static Neutral Position Splinting Wrist Static Neutral Position [id number] 03/04/2005 RADHA JAIMES [facility] Pulse Oximetry Pulse Oximetry [id number] 03/04/2005 RADHA JAIMES [facility] Social History Combined list of available smoking, tobacco, and other social history from Department of Defense and Veterans Affairs facilities. Social History Type Response Date Comment Sourc e This section is an empty social history section. [facility]
--- OUTSIDE RECORDS SUMMARY | 2023-09-01 17:26 | XMS_ITS | Continuity of Care Document ---
Author Name Unknown Organization [facility] Address [address] [place] [address] Phone Care Team Providers Care Special Education Resource Room Teacher Name Role Phone Destiny Luong Unavailable Unavailable Medications Medication Instructions Dosage Effective Dates (start - stop) Status Comments PROAIR RESPICLICK (unknown strength) Not Available - Active DURLAZA (unknown strength) Not Available - Active ATORVASTATIN CALCIUM (unknown strength) Not Available - Active DOCUSATE CALCIUM (unknown strength) Not Available - Active MULTAQ (unknown strength) Not Available - Active FLOVENT DISKUS (unknown strength) Not Available - Active FUROSEMIDE (unknown strength) Not Available - Active GABAPENTIN (unknown strength) Not Available - Active HYDROcodone-acetaminoph en (unknown strength) Not Available - Active TIROSINT (unknown strength) Not Available - Active LORAZEPAM (unknown strength) Not Available - Active METOPROLOL SUCCINATE (unknown strength) Not Available - Active MUPIROCIN (unknown strength) Not Available - Active POTASSIUM CHLORIDE (unknown strength) Not Available - Active SERTRALINE HCL (unknown strength) Not Available - Active COUMADIN (unknown strength) Not Available - Active ZOLPIMIST (unknown strength) Not Available - Active Procedures Procedure Date Office/Outpatient Visit,New, Mod 2015 X-Ray Exam Lower Spine 2-3 Views 2015 Advance Directives Directive Yes / No Effective Date File Name No Information Encounters Encounter Description Practice Location Reason(s) For Visit Diagnoses Date Provider Providers Copied on Encounter [facility], [address], [place], [place], [id number], [place] tel:[phone] [facility] No Information She Dixon. [facility], [address], [facility] [place], [id number], [place]. tel:[phone] Office/Outpat ient Visit,ParmjitAurelio Rose/TATYANA Musa, [address], [place], [id number], [place] tel:[phone] [facility] Spondylolisthes is, lumbar regionSpondylol isthesis, lumbosacral regionPrimary OA of left hip She Dixon. [facility], [address], [facility] [place], [id number], [place]. tel:[phone] Referring Provider: Singh Harerll, [facility] [address], [place], [address]. tel:[phone] Family History Family Member Type Diagnosis Age At Onset Problem (finding) Problem (finding) Problem (finding) Problem (finding) Problem (finding) Problem (finding) Problem (finding) Problem (finding) Problem (finding) Problem (finding) Problem (finding) Problem (finding) Problem (finding) Payers Payer name Insurance type Covered libertarian ID Authoriza tion(s) Medicare [id number] For Life/Retired [facility] [id number] Social History Type Description Quantity Date Captured Comments Sex Female Smoking Status No Information Chief Complaint And Reason For Visit No Information Reason For Referral Reason For Referral No Information Plan Of Treatment Date Type Action Status Future Order: Radiology Order AP Lateral Lumbar (APLatLumb), Ordered on: Ordered History Of Present Illness Encounter Date Complaint History Of Prese nt Illness No Information Functional Status Date Functional Assessmen t No Information Instructions Date Instruction Additional Infor mation No Information Assessments Type Assessment Date No Information Patient Care Teams Name Effective Dates (start - stop) Status Members No Information
[2023-09-01 17:37] VITALS: BP 155/86; PULSE 71; RESP 16; TEMP 37.2; O2SAT 91; BMI 37.2
--- NOTE | 2023-09-01 17:55 | ED.SOB ---
HPI - SOB/Dyspnea General Time Seen by Provider: 17:55 Date Seen: 09/01/23 Chief Complaint: Shortness of Breath/Dyspnea Stated Complaint: Short of breath Time Seen by Provider: 09/01/23 17:28 Source: patient, EMS and RN notes reviewed Mode of arrival: EMS Limitations: no limitations History of Present Illness HPI Narrative: This 83-year-old female is brought in by [facility] from her assisted living in [place] With an episode shortness of breath, difficulty breathing. Patient's daughter Jazmín was with her, her telehealth case manager was talking to her, her daughter notes that she was not upset. She suddenly just sat forward, felt short of breath, looked to be struggling to breathe and was leaning over in a tripod position from demonstration to nursing staff. Her daughter gave her her inhaler, did not help. She does not have oxygen at home. Her oxygenation was eventually found to be in the 80s. she was brought in by EMS on a 15 L non-rebreather. She was transitioned off oxygen here. She denies being sick with anything, no cough or cold symptoms. She has had no fevers or chills. She does have a history of congestive heart failure, has a defibrillator and a pacemaker. Her speech and language assistant is at [facility]. They do not believe she has been exposed anything like COVID. She had some right upper chest wall/ shoulder pain earlier today, nothing now, nothing with this episode. Patient notes that the EMS crew told her that her defibrillator was going off and she was not feeling it. I had asked nursing staff, they state when she came in it was evident that these were pacer spikes, she was in narrow complex rhythm and pacer spikes were being seen consistently on the quality assurance monitor body. I did subsequently review this with patient and her daughter whom felt reassured. Patient never felt a shock or any discomfort of her defibrillator going off. Patient is reportedly full code. Daughter notes that her lower extremities seem more swollen than what they normally are with fluid. Her past medical history significant for paroxysmal atrial fibrillation, superficial phlebitis, history of a CVA, history of diastolic congestive heart failure, history of ICD, history of paroxysmal atrial tachycardia post AF ablation with pacemaker, history of epistaxis, hypertension, hypothyroidism, hyperlipidemia, obesity, cataract, chronic back pain secondary to spinal stenosis of lumbar region with out neurogenic claudication, generalized osteoarthrosis, osteopenia, history major depression, generalized anxiety disorder, asthma, obstructive sleep apnea, chronic renal disease stage III, fibromyalgia, chronic anticoagulation, history of opioid dependence and history of repeat prescriptions, prediabetes. There is also notation in her chart of ventricular fibrillation cardiac arrest, further details not known. Current medications include albuterol inhaler, Lipitor 10 mg, calcium, Colace, Multaq 400 mg, Advair 230/21, Lasix 20, gabapentin 300 mg, Vicodin 5/325, Imdur, Synthroid, metoprolol XL 50 mg, Bactroban, potassium, prednisolone acetate 1% ophthalmic, Coumadin, Ambien. Related Data Home Medications Medication Instructions Recorded Confirmed albuterol sulfate 90 mcg/actuation inhalation 09/01/23 aerosol inhaler atorvastatin 10 mg tablet 10 mg PO DAILY 09/01/23 09/01/23 dronedarone 400 mg tablet (Multaq) 400 mg PO DAILY 09/01/23 09/01/23 gabapentin 300 mg capsule 300 mg PO DAILY 09/01/23 09/01/23 isosorbide mononitrate 30 mg 15 mg PO DAILY 09/01/23 09/01/23 tablet,extended release 24 hr levothyroxine 112 mcg tablet 112 mcg PO DAILY 09/01/23 09/01/23 metoprolol succinate 50 mg PO 09/01/23 tablet,extended release 24 hr Allergies Allergy/AdvReac Type Severity Reaction Status Date / Time lisinopril Allergy Unknown Verified 09/01/23 17:46 Exam Const: Vital Signs, click to edit/add: Vital Signs - 24 hr 09/01/23 17:37 Temperature 98.9 F Pulse Rate [Pulse Oximeter] 71 Respiratory Rate 16 Blood Pressure [Ri ght Forearm] 155/86 H Pulse Oximetry 91 Oxygen Delivery Me thod Room Air This 83-year-old female is very pleasant but hard of hearing. Pupils equal round reactive to light, sclera clear. Symmetrical facial function, speech is normal. Lips are not blue but you can see some blue veins underneath the skin above her lip. Almost gives the appearance of bluing of her upper lip but it is actually a vein underneath the skin. Neck is supple, cannot appreciate jugular venous distension. No cervical adenopathy, no thyromegaly masses or nodules. She can sit up with some assistance. Diminished breath sounds right base, no wheezing or crackles, no tachypnea. CV regular rate and rhythm, systolic murmur heard along the apex of the heart, not upper sternal borders. It is about 2/6, normal S1-S2, no S3-S4. Abdomen is soft, no rebound or guarding, no organomegaly noted. Lower extremities are thickened, she has superficial varicosities bilaterally. No erythema. Not truly pitting edema but definitely thickened lower extremities that seemed to be symmetric. She is moving arms and legs, no focal deficit noted. On the left cheek, there are 2 erythematous almost scaly plaques that are not raised. Maybe a little bit of crusting around the edge of 1, the edges are regular. Daughter notes that these have been there for about a year. She did state that the paramedics told them that it might be shingles. Reviewed with the daughter that this most certainly is not shingles, is not vesicular and if it is been there year, is certainly not shingles. I have reviewed with her that I am unclear what this is, may need to see Dermatology or perhaps even have a biopsy for further evaluation. Documenting provider has reviewed patient's vital signs: yes Course Course ED Course: This patient had an episode of hypoxia and shortness of breath, apparently improved at this time. Will do portable chest x-ray, check infectious etiology. She does have a history of lung disease as well as heart failure. With her extremities being more edematous, do think CHF is a possibility. She certainly did not have flash pulmonary edema that resolved without intervention. Have reassured them that the pacer spikes are normal and appropriate. She is apparently totally pacemaker dependent from what we are seen here. Will have her on cardiac monitoring and pulse oximetry. Do full complement of labs. Will do the triple viral swab is wall although the daughter really does not think she sick with anything. Reevaluation(s) Time of Reevaluation #1: 19:15 Reevaluation #1: Have reviewed her chest x-ray. Will order Lasix. Her current sheets that we have for her medication reconciliation list 20 mg daily. I will initiate 40 mg IV Lasix. Time of Reevaluation #2: 19:50 Reevaluation #2: Have brief conversation with patient's daughter, she was outside the room as her mom was urinating. She does not feel that her mom is safe to return home tonight, will be up urinating at night, she cannot stay with her. She fears for her safety. She is thinking she needs to stay overnight even if it is for observation. I will talk to our hospitalist. Consultations Consultation #1: Spoke with Dr. Graves, he does agree to accept this patient. Understands that the family is not able to stay with her overnight. She will be placed observation overnight. Will update daughter. Time: 21:02 Vital Signs Vital signs: Initial Vital Signs Temperature 98.9 F 09/01/23 17:37 Temperature Source Temporal Artery Scan 09/01/23 17:37 Pulse Rate 71 09/01/23 17:37 Respiratory Rate 16 09/01/23 17:37 Blood Pressure 155/86 H 09/01/23 17:37 Blood Pressure Mean 109 H 09/01/23 17:37 Blood Pressure Position Supine 09/01/23 17:37 Pulse Oximetry 91 09/01/23 17:37 Oxygen Delivery Method Room Air 09/01/23 17:37 Vital Signs Temperature 98.9 F 09/01/23 17:37 Pulse Rate 71 09/01/23 17:37 Respiratory Rate 16 09/01/23 17:37 Blood Pressure 155/86 H 09/01/23 17:37 Pulse Oximetry 91 09/01/23 17:37 Oxygen Delivery Method Room Air 09/01/23 17:37 Temperature 98.9 F 09/01/23 17:37 Pulse Rate 71 09/01/23 17:37 Respiratory Rate 16 09/01/23 17:37 Blood Pressure 155/86 H 09/01/23 17:37 Pulse Oximetry 91 09/01/23 17:37 Oxygen Delivery Method Room Air 09/01/23 17:37 Medications Administered Medications: Discontinued Medications Generic Name Dose Route Start Last Admin Trade Name Freq PRN Reason Stop Dose Admin Furosemide 40 mg 09/01/23 19:16 09/01/23 19:38 Furosemide 10 Mg/Ml Inj IVP 09/01/23 19:17 40 mg ONCE ONE Administration MDM - SOB/Dyspnea Lab Data Attestation: I reviewed the patient's lab results. Labs: Lab Results 09/01/23 09/01/23 Range/Units 18:11 18:41 WBC 5.51 (4.50-11.00) K/uL RBC 4.28 (4.00-5.20) m/uL Hgb 12.1 (12.0-16.0) gm/dL Hct 39.4 (33.0-51.0) % MCV 92 (80-100) fL MCH 28 (26-34) pg MCHC 31 L (32-36) gm/dL RDW Coeff of Angela 14.4 (11.5-15.5) % Plt Count 162 (140-440) K/uL Neut % (Auto) 61.6 (42.0-72.0) % Lymph % (Auto) 28.9 (20-44) % Iroquois % (Auto) 7.8 (0.0-11.0) % Eos % (Auto) 1.3 (0.0-7.0) % Baso % (Auto) 0.2 (0.0-3.0) % Neut # (Auto) 3.40 (1.7-7.0) K/uL Lymph # (Auto) 1.59 (0.90-2.90) K/uL Iroquois # (Auto) 0.40 (0.00-0.90) K/UL Eos # (Auto) 0.07 (0.00-0.50) K/uL Baso # (Auto) 0.01 (0.00-0.30) K/uL Abs Immat Gran (auto) 0.01 (0.00-0.30) K/uL Imm/Tot Granulo (auto) 0.2 % INR 1.70 H (0.91-1.10) APTT 36 H (23-33) Seconds D-Dimer Quant (PE/DVT) 0.29 (0.00-0.50) ug/ml VBG pH 7.406 (7.32-7.43) VBG pCO2 45 (40-50) mmHG VBG pO2 47.2 H (25-47) mmHG VBG HCO3 28 (21-28) mmol/L Sodium 135 (135-149) mmol/L Potassium 4.4 (3.6-5.1) mmol/L Chloride 102 (96-114) mmol/L Carbon Dioxide 25 (20-32) mmol/L Anion Gap 8 (7-15) mEq/L BUN 13 (7-30) mg/dL Creatinine 1.2 (0.5-1.5) mg/dL Estimated Creat Clear 30.42 Estimated GFR 45 ml/min Glucose 90 (60-115) mg/dL Lactate 1.0 (0.5-1.9) mmol/L Calcium 8.9 (8.4-10.6) mg/dL Magnesium 2.3 (1.5-2.6) mg/dL Total Bilirubin 1.3 (0.1-1.5) mg/dL AST 26 (12-35) U/L ALT 15 (4-35) U/L Alkaline Phosphatase 205 H (40-150) U/L Troponin I 0.01 (0.01-0.04) ng/mL C-Reactive Protein 0.7 (0.5-1.0) mg/dL NT-Pro-B Natriuret Pep 2600 pg/mL Total Protein 7.7 (6.0-8.3) g/dL Albumin 4.2 (3.3-5.0) g/dL SARS-CoV-2 (PCR) Negative SARS-CoV-2 (Negative) Influenza Type A (PCR) Negative PCR FLU A (Negative) Influenza Type B (PCR) Negative PCR FLU B (Negative) RSV (PCR) Negative PCR RSV (Negative) Imaging Data Chest x-ray: Attestation: I have reviewed the pertinent imaging results. My impression: See loss the costophrenic angle due to a pleural effusion versus infiltrate on the right side, probable CHF. Await Radiology over-read. Radiologist's impression: [facility] Patient ID:?[id number] Site Patient ID:?[id number]. Site :?[id number] Study:?XRay Chest 1V-09/01/2023 6:28:27 PM Ordering Physician:?Kamila Chavis Final Report: INDICATION: Dyspnea, history of congestive heart failure TECHNIQUE: Chest radiograph, 1 view. COMPARISON: Chest radiographs 05/28/2018. FINDINGS: Lines/Tubes/Devices: Left anterior chest wall AICD device. Mediastinum: Stable magnified cardiac silhouette, likely enlarged. Tortuous thoracic aorta. Atherosclerotic calcifications of the aortic arch. Lungs: Bilateral veil like haziness of the lung nick, right greater than left. Mild pulmonary vascular congestion and increased interstitial lung markings compatible with interstitial edema. Airways: The trachea remains midline. Pleura: There is obscuration of the right hemidiaphragm, suggestive of small pleural effusion. There may be a trace left pleural effusion. No pneumothorax. Bones: Status post total left shoulder arthroplasty. No acute osseous abnormalities. Upper Abdomen: Unremarkable. IMPRESSION: Mild pulmonary vascular congestion, interstitial edema and small pleural effusions, suggestive of congestive heart failure. A superimposed pneumonia should be clinically excluded. Dictated by Chucky Aguirre MD @ 09/01/2023 7:11:11 PM (Electronic Signature) ECG Data Attestation: I personally reviewed and interpreted this ECG as follows: (A regular rhythm at 71 beats per minute. Pacer spikes not seen on the EKG but are consistently noted on her cardiac monitoring. No ischemic change noted. QT corrected 452 milliseconds.) ECG interpretation date: 09/01/23 ECG interpretation time: 17:45 Prior ECG tracings: not available for review Critical Care Time Critical Care Time Critical Care Time: No Discharge Plan Discharge Clinical Impression: Congestive heart failure Qualifiers: Heart failure type: unspecified Heart failure chronicity: acute on chronic Qualified Code(s): I50.9 - Heart failure, unspecified Patient Disposition: Admitted As Observation
[2023-09-01 18:10] VITALS: O2SAT 89
[2023-09-01 18:11] VITALS: BP 135/95; PULSE 73; RESP 16; O2SAT 89
--- NOTE | 2023-09-01 18:11 | CRLHL7_ITS ---
For Patients: As a result of the Century Cures Act, medical imaging exams and procedure reports are released immediately into your electronic medical record. You may view this report before your referring provider. If you have questions, please contact your health care provider. INDICATION: Dyspnea, history of congestive heart failure TECHNIQUE: Chest radiograph, 1 view. COMPARISON: Chest radiographs 05/28/2018. FINDINGS: Lines/Tubes/Devices: Left anterior chest wall AICD device. Mediastinum: Stable magnified cardiac silhouette, likely enlarged. Tortuous thoracic aorta. Atherosclerotic calcifications of the aortic arch. Lungs: Bilateral veil like haziness of the lung nick, right greater than left. Mild pulmonary vascular congestion and increased interstitial lung markings compatible with interstitial edema. Airways: The trachea remains midline. Pleura: There is obscuration of the right hemidiaphragm, suggestive of small pleural effusion. There may be a trace left pleural effusion. No pneumothorax. Bones: Status post total left shoulder arthroplasty. No acute osseous abnormalities. Upper Abdomen: Unremarkable. IMPRESSION: Mild pulmonary vascular congestion, interstitial edema and small pleural effusions, suggestive of congestive heart failure. A superimposed pneumonia should be clinically excluded. Dictated by Chucky Aguirre MD @ 09/01/2023 7:11:11 PM (Electronically Signed)
--- OUTSIDE RECORDS SUMMARY | 2023-09-01 18:23 | XMS_ITS | Continuity of Care Document ---
Author Name [facility] Organization [facility] Care Team Providers Care Sustainability Project Manager Name Role Phone [facility] Unavailable Unavailable Problems [...] hip replacements. Denies XRays since eval at [facility]. DoD restless legs syndrome Active Condition MAY [...] TEVA [place], 8.5 g CANISTER Cancele d [id number] : 2023 Pharmac y Data Transac tion Service Facilit y ALBUTEROL SULFATE HFA (albuterol sulfate), 90 MCG, HFA AER AD, INHALATION, TEVA [place], 8.5 g CANISTER Active [id number] 2023 Pharmac y Data Transac tion Service Facilit y ATORVASTATI N CALCIUM (ATORVASTAT IN CALCIUM), 10 MG, TABLET, ORAL, APOTEX CARMELO, 1000 ea. BOTTLE Cancele d [id number] : 2023 Pharmac y Data Transac tion Service Facilit y ATORVASTATI N CALCIUM (ATORVASTAT IN CALCIUM), 10 MG, TABLET, ORAL, APOTEX CARMELO, 1000 ea. BOTTLE Active [id number] 2023 Pharmac y Data Transac tion Service Facilit y GABAPENTIN (gabapentin ), 300 MG, CAPSULE, ORAL, [employer] 1000 ea. BOTTLE Active [id number] 2023 Pharmac y Data Transac tion Service Facilit y ISOSORBIDE MONONITRATE ER (isosorbide mononitrate ), 30 MG, TAB ER 24H, ORAL, [employer] 500 ea. BOTTLE Active [id number] 2023 Pharmac y Data Transac tion Service Facilit y LEVOTHYROXI NE SODIUM (levothyrox ine sodium), 112 MCG, TABLET, ORAL, AMNEAL PHARMACE, 100 ea. BOTTLE Cancele d [id number] : 2023 Pharmac y Data Transac tion Service Facilit y LEVOTHYROXI NE SODIUM (levothyrox ine sodium), 112 MCG, TABLET, ORAL, AMNEAL PHARMACE, 100 ea. BOTTLE Active [id number] 2023 Pharmac y Data Transac tion Service Facilit y METOPROLOL SUCCINATE (metoprolol succinate), 50 MG, TAB ER 24H, ORAL, [employer] 1000 ea. BOTTLE Cancele d [id number] : 2023 Pharmac y Data Transac tion Service Facilit y METOPROLOL SUCCINATE (metoprolol succinate), 50 MG, TAB ER 24H, ORAL, [employer] 1000 ea. BOTTLE Active [id number] 2023 Pharmac y Data Transac tion Service Facilit y MULTAQ (DRONEDARON E HYDROCHLORI DE), 400 MG, TABLET, ORAL, SANOFI-AVEN TIS, 60 ea. BOTTLE Active [id number] 2023 Pharmac y Data Transac tion [...] Site Reaction Lot Number CVX Code Drug Boatswain'S Mate Status Comments Source Pneumococcal conjugate PCV 13 2016 REA FLORES () Not Given Pneumococ ulises conjugate PCV 13 DoD Influenza, seasonal, injectable, preservative free 2010 SHYAM FRANCISCO [employer] (NOV) Not Given Influenza , seasonal, injectabl e, preservat timothy free DoD Novel influenza-H1N 1-09, preservative- free, injectable 1 2008 Unknown, Provider [id number] Sanofi Pasteur (PMC) complet ed Novel influenza -M0G2-18, preservat timothy-free, injectabl e DoD tetanus and diphtheria toxoids, adsorbed, preservative free, for adult use (2 Lf of tetanus toxoid and 2 Lf of diphtheria toxoid) 1 2003 Unknown, Provider [id number] Sanofi Pasteur (PMC) complet ed tetanus and diphtheri a toxoids, adsorbed, preservat timothy free, for adult use (2 Lf of tetanus toxoid and 2 Lf of diphtheri a toxoid) [facility] influenza virus vaccine, whole virus 1 2002 Unknown, Provider [id number] [employer] (PWJ) complet ed [...] DC Date Status Disposition Source [employer]([facility]) OUTPATIENT [id number] THEO Garcia 04/30 Released w/o Limitations [employer]([facility]) [employer]([facility]) TELE CONSULT [id number] REFTHEO LENZ 05/02 [facility]) [facility]) OUTPATIENT [id number] EAR AND THROAT PAIN GENARO RIVERO 05/18 Released w/o Limitations [facility]) [facility]) TELE CONSULT [id number] RADHA ABRAMS 07/02 [employer]([facility]) [employer]([facility]) TELE CONSULT [id number] RADHA Wallis 07/12 [facility]) [facility]) TELE CONSULT [id number] REFGENARO PENA 07/17 [facility]) [facility]) OUTPATIENT [id number] LEFT SHOULDE R JAMEY AGUILA 07/18 Released w/o Limitations [employer]([facility]) [employer]([facility]) OUTPATIENT [id number] Well Woman exam RADHA JAIMES 07/23 Released w/o Limitations [employer]([facility]) [employer]([facility]) TELE CONSULT [id number] RADHA ABRAMS 07/31 [employer]([facility]) [employer]([facility]) OUTPATIENT [id number] MED READJUS TMENT PER RADHA MCCORMACK 08/30 Released w/o Limitations [employer]([facility]) [employer] TELE CONSULT [id number] Med refill MAYRA GUERIN 10/01 [employer] [employer]([facility]) TELE CONSULT [id number] RADHA Abrams 10/22 [employer]([facility]) [employer]([facility]) TELE CONSULT [id number] med refill MAYRA GUERIN 10/29 [employer]([facility]) [employer]([facility]) OUTPATIENT [id number] REG FELIX THEO Cresencio 11/12 Released w/o Limitations [employer]([facility]) [employer]([facility]) TELE CONSULT [id number] med refill MAYRA GUERIN 11/28 [employer]([facility]) [employer]([facility]) TELE CONSULT [id number] med refill MAYRA GUERIN 12/27 [employer]([facility]) [employer]([facility]) OUTPATIENT [id number] bp check per RADHA Willis 01/23 Released w/o Limitations [employer]([facility]) [employer]([facility]) TELE CONSULT [id number] Rx refill MAYRA GUERIN 02/12 [employer]([facility]) [employer]([facility]) OUTPATIENT [id number] SORE ON LIP, ASTHMA PT WITH PERSIST ENT COUGH RADHA JAIMES 03/04 Released w/o Limitations [employer]([facility]) [employer]([facility]) TELE CONSULT [id number] med refill MAYRA GUERIN 04/02 [employer]([facility]) [employer]([facility]) TELE CONSULT [id number] PT IS DONE WITH CIPRIANO RODRÍGUEZ 04/23 [employer]([facility]) [employer]([facility]) TELE CONSULT [id number] REFILL MEDS MAYRA GUERIN 06/24 [employer]([facility]) [employer]([facility]) TELE CONSULT [id number] RENEWAL FOR NICHO CHANG 07/24 [facility] Group([facility]) [employer]([facility]) OUTPATIENT [id number] FOLLOW UP FALL LAST MONTH, SHOULDE R AND KNEE X2 APPTS IRVIN ASKEW 08/22 Released w/o Limitations [employer]([facility]) [employer]([facility]) TELE CONSULT [id number] MED RENEWAL NICHO CHING 11/07 [facility]) [employer]([facility]) OUTPATIENT [id number] RT FT SORE/AN KLE DOWN/FE LL SHIRIN W, CHOLO W 12/11 Released w/o Limitations [employer]([facility]) [employer]([facility]) TELE CONSULT [id number] NEEDS MEDS NICHO CHING 12/18 [facility]) [employer]([facility]) TELE CONSULT [id number] MED REFIL NICHO CHING 12/24 [employer]([facility]) [employer]([facility]) TELE CONSULT [id number] MED REQUEST NICHO DUNCAN 05/14 [employer]([facility]) [employer]([facility]) OUTPATIENT [id number] OVER 40 PHYSICA L MICHELLE DONIS 05/27 Released w/o Limitations [employer]([facility]) [employer]([facility]) OUTPATIENT [id number] f/u per MICHELLE Marx 06/02 Released w/o Limitations [employer]([facility]) [employer]([facility]) OUTPATIENT [id number] F/U IRREGUL AR HEART BEAT MICHELLE DONIS 06/26 Released w/o Limitations [employer]([facility]) [employer]([facility]) TELE CONSULT [id number] MED REQUEST NICHO DUNCAN 07/29 [employer]([facility]) [employer] OUTPATIENT [id number] [place] 08/12 Released w/o Limitations [employer] [employer]) OUTPATIENT [id number] [place] 08/19 Released w/o Limitations [employer] [employer] OUTPATIENT [id number] [place] 08/26 Released w/o Limitations [employer] [employer]([facility]) TELE CONSULT [id number] Refill of Meds NICHO DUNCAN 08/26 [employer]([facility]) [employer]([facility]) OUTPATIENT [id number] follow up on results MICHELLE DONIS 09/01 Released w/o Limitations [employer]([facility]) [employer] OUTPATIENT [id number] [place] 09/03 Released w/o Limitations [employer] [employer]([facility]) OUTPATIENT [id number] Follow up on lab and medicat ions MICHELLE DONIS 09/08 Released w/o Limitations [employer]([facility]) [employer]([facility]) OUTPATIENT [id number] f/u meds MICHELLE DONIS 09/16 Released w/o Limitations [employer]([facility]) [employer] OUTPATIENT [id number] [place] 09/16 Released w/o Limitations [employer] [employer]([facility]) OUTPATIENT [id number] B-12 NATALIA TOBIAS 09/16 Released w/o Limitations [employer]([facility]) [employer]([facility]) OUTPATIENT [id number] f/u medMICHELLE Valentino 09/23 Released w/o Limitations [employer]([facility]) [employer]([facility]) OUTPATIENT [id number] b12 YOLANDA Arrington 09/23 Released w/o Limitations [employer]([facility]) [employer] OUTPATIENT [id number] [place] 09/23 Released w/o Limitations [employer] [employer]([facility]) TELE CONSULT [id number] Needs a refill of Premari n .625MG Tab NICHO DUNCAN 09/30 [employer]([facility]) [employer] OUTPATIENT [id number] [place] 09/30 Released w/o Limitations [employer] [employer]([facility]) OUTPATIENT [id number] B-12 Tahmina bhatia NUJESÚS 09/30 Released w/o Limitations [employer]([facility]) [employer] OUTPATIENT [id number] [place] 10/07 Released w/o Limitations [employer] [employer]([facility]) OUTPATIENT [id number] YOLANDA TARANGO 10/07 Released w/o Limitations [employer]([facility]) [employer]([facility]) TELE CONSULT [id number] REFERRE D TO URGENT CARE NICHO DUNCAN 10/08 [employer]([facility]) [employer]([facility]) OUTPATIENT [id number] follow up MICHELLE DONIS 10/09 Released w/o Limitations [employer]([facility]) [employer]([facility]) OUTPATIENT [id number] Cyanoco balamin Shot NATALIA TOBIAS Dalia 10/16 Released w/o Limitations [employer]([facility]) [employer]([facility]) OUTPATIENT [id number] F/U INSOMNI A AND F/U LAB TESTS MICHELLE DONIS 10/17 Released w/o Limitations [employer]([facility]) [employer] OUTPATIENT [id number] [place] 10/28 Released w/o Limitations [employer] [employer]([facility]) OUTPATIENT [id number] Depo Shot Injecti on NATALIA TOBIAS L 10/28 Released w/o Limitations [employer]([facility]) [employer] OUTPATIENT [id number] [place] 11/11 Released w/o Limitations [employer] [employer]([facility]) TELE CONSULT [id number] MED REQUEST NICHO DUNCAN 11/25 [employer]([facility]) [employer] OUTPATIENT [id number] [place] 11/25 Released w/o Limitations [employer] [employer]([facility]) OUTPATIENT [id number] ANNUAL WELL-WO MAN; NEEDS PREMARI N MICHELLE ADAM 11/27 Released w/o Limitations [employer] [facility]) [facility]) OUTPATIENT [id number] [place] 12/09 Released w/o Limitations [facility]) TELE CONSULT [id number] MED REQUEST NICHO CHING 12/12 [facility]) Procedures Combined list of: 1) Procedures from [...] DoD Psychotherapy Individual Approximately 45 Minutes 08/26/2006 [place] DoD Psychotherapy Individual Approximately 45 Minutes 08/19/2006 [place] [facility] ECG 12-Lead ECG 12-Lead [id number] 06/03/2006 MICHELLE DONIS [facility] Respiratory Equip IPPB Related Equip Nebulizer Respiratory Equip IPPB Related Equip Nebulizer 12393 06/03/2006 JEWELS MICHELLE [facility] Spirometry Post-bronchodilator Spirometry Post-bronchodilato r 79164 06/03/2006 MICHELLE DONIS [facility] Spirometry Pre-bronchodilator Spirometry Pre-bronchodilator 88531 06/03/2006 MICHELLE DONIS [facility] ECG 12-Lead ECG 12-Lead [id number] 05/27/2006 MICHELLE DONIS [facility] Splinting Wrist Static Neutral Position Splinting Wrist Static Neutral Position 75200 03/04/2005 RADHA JAIMES [facility] Pulse Oximetry Pulse Oximetry 82461 03/04/2005 RADHA JAIMES [facility] Social History Combined list of available smoking, tobacco, and other social history from Department of Defense and Veterans Affairs facilities. Social History Type Response Date Comment Sourc e This section is an empty social history section. [facility]
--- OUTSIDE RECORDS SUMMARY | 2023-09-01 18:23 | XMS_ITS | Continuity of Care Document ---
Author Name Unknown Organization [facility] Address [address] [place] [address] Phone Care Team Providers Care Precipitator Operator Name Role Phone Destiny Luong Unavailable Unavailable [...] Copied on Encounter [facility], [address], [place], [id number], [place] tel:[phone] [facility] No Information She Dixon. [facility], [address], [place], [id number], [place]. tel:[phone] Office/Outpat ient Visit,ParmjitAurelio Rose/TATYANA Musa, [address], [place], [id number], [place] tel:[phone] [facility] Spondylolisthes is, lumbar regionSpondylol isthesis, lumbosacral regionPrimary OA of left hip She Dixon. [facility], [address], [place], [id number], [place]. tel:[phone] Referring Provider: Singh Harrell, [facility] [address], [place], [address]. tel:[phone] Family History Family Member Type Diagnosis Age At Onset Problem (finding) Problem (finding) Problem (finding) Problem (finding) Problem (finding) Problem (finding) Problem (finding) Problem (finding) Problem (finding) Problem (finding) Problem (finding) Problem (finding) Problem (finding) Payers Payer name Insurance type Covered republican ID Authoriza tion(s) Medicare [id number] For Life/Retired [facility] [id number] Social History Type Description Quantity Date Captured [...]
--- OUTSIDE RECORDS SUMMARY | 2023-09-01 18:23 | XMS_ITS | Clinical Summary ---
Author Name Unknown Organization [employer] [facility] Address [place], [place] [address] Care Team Providers Care Fibrous Plasterer Name Role Phone Angel Lawson MD Primary Care Provider [phone] Allergies Active Allergy Reactions Criticality Noted Date [...] Tablet 1 4 024 Discontin ued(*Erro r/entry level programmer error) Active Problems Patient Care Coordination No [...] Casanova has elected to enroll in the [id number] research project and meets inclusion criteria through diagnosis of heart failure. Paola Denney is assigned as [facility] Care Guide. Paola Denney .................... 02/19/2013 12:18 [...] Jazmín Cheung as her primary healthcare agent. [phone]. Her son Star Ibrahim is no longer her healthcare agent as of 10/14/14. Understanding of Illness and Disease Ste[place]man: Brittani identifies her medical condition as heart [...] strong preference to not go to a retirement. Of utmost importance to Brittani is that [...] I don't want to go to a retirement. to focus treatment on comfort and quality [...] stops' OR I have little chance of senior living survival if my heart stops and the [...] care agents to follow up with this commercial underwriter (CLAUDE Montanez-[employer]) if and when there are questions related to Advance Care Planning, and/or Health Care Agent information/understanding. Brittani would benefit from: Home Care Care Navigation Help Desk Care Navigation brochure(s) was given to Brittani. Advance Care Planning recommendations and Brittani's concerns and questions were cc? ed to her primary provider. Interviewer: KATELYN Montanez, [facility] [phone] 10/13/2013 11:37 AM 10/07/2013 H/O CVA (cerebral vascular accident) 08/03/2010 Overview: -Hospitalized in [place] Superficial phlebitis 08/01/2010 Hyperlipidemia 07/06/2010 Major depression, [...] Department Care Team Description 08/27/2023 Anticoagulation (warfarin) [facility] [address] [place] [address] [facility] Anticoagulation (Home care) 08/22/2023 9:40 AM SENIOR TECHNICAL PROGRAM MANAGER Office Visit [facility] [address] [place] [address] Terry Sandoval OD Post-op (3 Week Final IOL POV OS ) 08/22/2023 Travel 08/20/2023 Telephone [facility] [address] [place] [address] Angel Lawson MD Form 08/20/2023 Refill [facility] [address] [place] [address] Angel Lawson MD Refill Request 08/20/2023 Refill [facility] [address] [place] [address] Angel Lawson MD Refill Request (Metoprolol Succinate, Albuterol Hfa, Gabapentin) 08/20/2023 Refill [place] [address] [place] [address] Angel Lawson MD Refill Request (albuterol HFA (ProAir HFA) 90 mcg/actuation inhaler//levothyroxin e (SYNTHROID) 112 mcg tablet 90 Tablet 3 08/13/2022 - No/Sig: TAKE 1 TABLET DAILY//metoprolol succinate (TOPROL XL) 50 mg sustained-release tablet 45 Tablet 2/gabapentin (NEURONTIN) 300 mg capsule (Discontinued)//atorv astatin (LIPITOR) 10 mg tablet 90 Tablet) 08/18/2023 Telephone [place] [address] [place] [address] Angel Lawson MD Form (ORDERS) 08/13/2023 Anticoagulation (warfarin) [place] [address] [place] [address] [facility] Anticoagulation (Poct HC) 08/12/2023 Refill [place] [address] [place] [address] Angel Lawson MD Refill Request (Hydrocodone-acetamin ophen) 08/06/2023 Telephone [place] [address] [place] [address] Angel Lawson MD Concerns (water pill ) 08/06/2023 Telephone [place] [address] [place] [address] Angel Lawson MD Form 08/04/2023 Anticoagulation (warfarin) [address] [place] [address] [facility] Anticoagulation (Home Care ) 08/01/2023 9:40 AM SENIOR TECHNICAL PROGRAM MANAGER Office Visit [facility] [address] [place] [address] Terry Sandoval, OD Post-op (1 Day PO OS) 07/31/2023 8:54 AM SENIOR TECHNICAL PROGRAM MANAGER - 07/31/2023 9:37 AM SENIOR TECHNICAL PROGRAM MANAGER Surgery [address] [address] Singh Valentin MD LEFT CATARACT EXTRACTION WITH LENS IMPLANT 07/31/2023 8:36 AM SENIOR TECHNICAL PROGRAM MANAGER Anesthesia Event [address] [address] Genoveva Sy MD 07/31/2023 7:17 AM SENIOR TECHNICAL PROGRAM MANAGER - 07/31/2023 9:35 AM SENIOR TECHNICAL PROGRAM MANAGER Hospital Encounter [address] [address] Singh Valentin MD Discharge Disposition: Home Self Care 07/31/2023 Travel 07/31/2023 Telephone [facility] [address] [place] [address] Angel Lawson MD Form (ORDER) 07/30/2023 Anticoagulation (warfarin) [facility] [address] [place] [address] [facility] Anticoagulation (Home care) 07/25/2023 3:00 PM SENIOR TECHNICAL PROGRAM MANAGER Ancillary Procedure [facility] [address] [place] [address] 07/25/2023 2:10 PM SENIOR TECHNICAL PROGRAM MANAGER Preop Visit [facility] [address] [place] [address] Angel Lawson MD Preoperative Exam (DOS 07/31/23 left eye/) 07/25/2023 Telephone [facility] [address] [place] [address] Angel Lawson MD Results 07/25/2023 Travel 07/25/2023 Telephone [facility] [address] [place] [address] Angel Lawson MD Form (HHC and ORDERS) 07/23/2023 Anticoagulation (warfarin) [facility] [address] [place] [address] [facility] Anticoagulation (Home Care) 07/22/2023 Lab Requisition [facility] [phone] Unknown, Doctor 07/22/2023 Telephone [facility] [address] [place] [address] Angel Lawson MD Form (ORDERS) 07/18/2023 Telephone [facility] [address] [place] [address] Angel Lawson MD Form (PHYSICIAN'S ORDER) 07/17/2023 Telephone [facility] [address] [place] [address] Angel Lawson MD Anticoagulation (Home Care- delay of next INR) 07/17/2023 Telephone [facility] [address] [place] [address] Angel Lawson MD Anticoagulation (INR >5 dosing review) 07/16/2023 Lab Requisition [facility] [phone] Unknown, Doctor 07/16/2023 Anticoagulation (warfarin) [facility] [address] [place] [address] [facility] Anticoagulation ([facility]) 07/11/2023 9:40 AM SENIOR TECHNICAL PROGRAM MANAGER Office Visit [facility] [address] [place], [place] [address] Terry Sandoval OD Post-op (1 Week IOL POV OD ) 07/11/2023 Telephone [facility] [address] [place] [address] Angel Lawson MD Form 07/11/2023 Telephone [facility] [address] [place] [address] Angel Lawson MD Questions (About the patients wheelchair) 07/11/2023 Travel 07/11/2023 Telephone [facility] [address] [place] [address] Angel Lawson MD Form (PHYSICIAN ORDER) 07/04/2023 9:40 AM SENIOR TECHNICAL PROGRAM MANAGER Office Visit [facility] [address] [facility] [place] [address] Terry Sandoval, OD Post-op (1 Day POV IOL OD ) 07/04/2023 Refill [facility] [address] [facility] [place] [address] Angel Lawson MD Refill Request (Hydrocodone-acetamin ophen) 07/03/2023 10:08 AM SENIOR TECHNICAL PROGRAM MANAGER Anesthesia Event [address] [address] Reno Parada MD [place], Lindsey Jo, CRNA 07/03/2023 10:07 AM SENIOR TECHNICAL PROGRAM MANAGER - 07/03/2023 10:42 AM SENIOR TECHNICAL PROGRAM MANAGER Surgery [address] [address] Singh Valentin MD RIGHT CATARACT EXTRACTION WITH LENS IMPLANT 07/03/2023 8:27 AM SENIOR TECHNICAL PROGRAM MANAGER - 07/03/2023 11:25 AM SENIOR TECHNICAL PROGRAM MANAGER Hospital Encounter [address] [address] Singh Valentin MD Discharge Disposition: Home Self Care 07/03/2023 Nurse Triage [facility] [address] [facility] [place] [address] Angel Lawson MD Post-op Pain/problem 07/03/2023 Telephone [facility] [address] [place] [address] Singh Valentin MD surgery update 07/03/2023 Telephone [facility] [address] [place] [address] Angel Lawson MD Form (ORDER) 07/03/2023 Travel 07/02/2023 Anticoagulation (warfarin) [facility] [address] [place] [address] [facility] Anticoagulation (Home Care ) 06/27/2023 1:20 PM SENIOR TECHNICAL PROGRAM MANAGER Preop Visit [facility] [address] [place] [address] Angel Lawson MD Preoperative Exam (DOS 07/03/23 right eye first then they will do the 2nd eye 2 weeks later); Flu Shot; Immunization/Injectio n (COVID-19 vaccine); Medicare ANNUAL (subsequent) Visit 06/27/2023 Travel 06/24/2023 Orders Only [facility] [address] [place] [address] Singh Valentin MD <No scans attached> 06/18/2023 Refill [facility] [address] [place] [address] Angel Lawson MD Refill Request (Atorvastatin/) 06/14/2023 Refill [facility] [address] [place] [address] Angel Lawson MD Refill Request (Zolpidem) 06/09/2023 Telephone [facility] [address] [place] [address] Angel Lawson MD Form (PHYSICIAN ORDER) 06/06/2023 Refill [facility] [address] [place] [address] Angel Lawson MD Refill Request (Warfarin) 06/04/2023 Anticoagulation (warfarin) [facility] [address] [place] [address] [facility] ([facility]) from Last 3 Months Immunizations Name Administration Dates Next Due COVID-19 Vaccine Spikevax (M oderna 50mcg/0.5mL) 12YO+ [id number] Formula PF 06/27/2023 COVID-19 vaccine (Pfizer-Bio NTech [...] Comments Blood Pressure 134/81 07/31/2023 9:23 AM SENIOR TECHNICAL PROGRAM MANAGER Pulse 70 07/31/2023 9:23 AM SENIOR TECHNICAL PROGRAM MANAGER Temperature 36.2 ??C (97.1 ??F) 07/31/2023 9:06 AM CS T Respiratory Rate 20 07/31/2023 9:23 AM SENIOR TECHNICAL PROGRAM MANAGER Oxygen Saturation 92% 07/31/2023 9:23 AM SENIOR TECHNICAL PROGRAM MANAGER Inhaled Oxygen Concentration - - Weight 100.2 kg (221 lb) 07/31/2023 7:29 AM SENIOR TECHNICAL PROGRAM MANAGER Height 160 cm (5' 3) 07/31/2023 7:29 AM SENIOR TECHNICAL PROGRAM MANAGER Body Mass Index 39.15 07/31/2023 7:29 AM SENIOR TECHNICAL PROGRAM MANAGER Plan of Treatment Health Maintenance Due Date [...] history exists Medical Devices Implanted Type Area Services Manager Device Identifier Shelf Expiration Date Model / Serial / Lot Icd Only-12/03/2011 Implanted:02/2012 (Quantity not on file) ICD Only [employer] [id number] / [id number] / Iol Grand Preload 1 Pc Clear 6mm 21.00 Diopter Tecnis - [id number] Implanted:Qty : 1 on 07/31/2023 by Singh Valentin MD at [facility] Opthalmology Implants Left: Eye [employer] 02/23/2026 [id number] / [id number] / N/A Iol Grand Preload 1 Pc Clear 6mm 20.50 Diopter Tecnis - [id number] Implanted:Qty : 1 on 07/03/2023 by Singh Valentin MD at [facility] Right: Eye [employer] 03/10/2026 [id number] / [id number] / NA Procedures Procedure Name Priority Date/Time Associated Diagnosis Comments EXTRACAPSULAR CATARACT EXTRACTION INTRAOCULAR LENS IMPLANT 07/31/2023 8:27 AM SENIOR TECHNICAL PROGRAM MANAGER CATARACT Case Notes LEFT EYEMAC/LOCAL Special Needs CHART MADE Angel Lawson MD XR SHOULDER 3 VIEWS LEFT Routine 07/25/2023 3:12 PM SENIOR TECHNICAL PROGRAM MANAGER Chronic left shoulder pain PROTIME-INR Routine 07/16/2023 1:15 PM SENIOR TECHNICAL PROGRAM MANAGER EXTRACAPSULAR CATARACT EXTRACTION INTRAOCULAR LENS IMPLANT 07/03/2023 9:58 AM SENIOR TECHNICAL PROGRAM MANAGER CATARACT Case Notes RIGHT EYEMAC/LOCAL Special Needs CHART MADE Angel Lawson MD 06/27/2023 from Last 3 Months Results * XR SHOULDER 3 VIEWS LEFT (07/25/2023 3:12 PM SENIOR TECHNICAL PROGRAM MANAGER) Anatomical Region Laterality Modality SHOULDERS, SHOULDER L Computed R adiography 07/25/2023 3:33 PM SENIOR TECHNICAL PROGRAM MANAGER Narrative 07/25/2023 3:33 PM SENIOR TECHNICAL PROGRAM MANAGER For Patients: ??As a result of the [...] IMAGING * (ABNORMAL) PROTIME-INR (07/16/2023 1:15 PM SENIOR TECHNICAL PROGRAM MANAGER) INR 5.1(H) <1.3 07/16/2023 10:05 PM SENIOR TECHNICAL PROGRAM MANAGER [facility] PROTIME 53.6(H) 10.3 - 12.3 sec 07/16/2023 10:05 PM SENIOR TECHNICAL PROGRAM MANAGER [facility] Blood BLOOD SPECIMEN / Unknown Client Collect / Unknown 07/16/2023 1:15 PM SENIOR TECHNICAL PROGRAM MANAGER 07/16/2023 8:49 PM SENIOR TECHNICAL PROGRAM MANAGER Narrative [facility] - 07/16/2023 10:05 PM SENIOR TECHNICAL PROGRAM MANAGER ?Therapeutic Range 2.0-3.0 for most anticoagulated patients [...] patient is on UFH. Doctor Unknown [facility]AT[facility] [address] [place] [id number], from Last 3 Months Advance Directives Documents on File Type Date Recorded Patient Barrel Filler Head Expl anation Healthcare Directive 10/19/2014 9:49 AM [...] 10:17 AM 06/06/2015 3:05 PM Care Teams Fibrous Plasterer Relationship Specialty [place] [address] [place] [address] PCP - General Family Practice 04/02/22
[2023-09-01 18:31] VITALS: BP 137/85; PULSE 68; RESP 16; O2SAT 89
[2023-09-01 18:45] LABS: HCO3 VBG 28 mmol/L (21-28); PCO2 VBG 45 mmHG (40-50); PO2 VBG 47.2 mmHG (25-47); pH VBG 7.406 (7.32-7.43)
[2023-09-01 18:46] LABS: Basophils Absolute Auto 0.01 K/uL (0.00-0.30); Basophils Percent Auto 0.2 % (0.0-3.0); Eosinophils Absolute Auto 0.07 K/uL (0.00-0.50); Eosinophils Percent Auto 1.3 % (0.0-7.0); Hematocrit 39.4 % (33.0-51.0); Hemoglobin* 12.1 gm/dL (12.0-16.0); Immature Granulocytes Abs Auto 0.01 K/uL (0.00-0.30); Immature Granulocytes Pct Auto 0.2 %; Lymphocytes Absolute Auto 1.59 K/uL (0.90-2.90); Lymphocytes Percent Auto 28.9 % (20-44); Mean Corpuscular HGB Conc 31 gm/dL (32-36); Mean Corpuscular Hemoglobin 28 pg (26-34); Mean Corpuscular Volume 92 fL (80-100); Monocytes Percent Auto 7.8 % (0.0-11.0); Neutrophils Percent Auto 61.6 % (42.0-72.0); Platelet Count* 162 K/uL (140-440); RDW Coefficient of Variation % 14.4 % (11.5-15.5); Red Blood Count 4.28 m/uL (4.00-5.20); White Blood Count* 5.51 K/uL (4.50-11.00)
[2023-09-01 18:51] LABS: Slide Review Reflex No
[2023-09-01 19:04] LABS: Albumin* 4.2 g/dL (3.3-5.0); Chloride* 102 mmol/L (96-114)
[2023-09-01 19:05] LABS: Potassium* 4.4 mmol/L (3.6-5.1); Sodium* 135 mmol/L (135-149)
[2023-09-01 19:07] LABS: Alanine Aminotransferase* 15 U/L (4-35); Alkaline Phosphatase* 205 U/L (40-150); Anion Gap 8 mEq/L (7-15); Aspartate Amino Transferase* 26 U/L (12-35); Bilirubin Total* 1.3 mg/dL (0.1-1.5); Blood Urea Nitrogen* 13 mg/dL (7-30); Carbon Dioxide* 25 mmol/L (20-32); Creatinine* 1.2 mg/dL (0.5-1.5); Est. Creatinine Clearance* 30.42; Estimated Glomerular Filt Rate 45 ml/min; Total Protein* 7.7 g/dL (6.0-8.3)
[2023-09-01 19:08] LABS: Calcium* 8.9 mg/dL (8.4-10.6); Glucose* 90 mg/dL (60-115); Magnesium* 2.3 mg/dL (1.5-2.6); Partial Thromboplastin Time* 36 Seconds (23-33); Prothrombin Time 21.2 Seconds
[2023-09-01 19:09] LABS: D Dimer Quantitative* 0.29 ug/ml (0.00-0.50)
[2023-09-01 19:10] LABS: C Reactive Protein* 0.7 mg/dL (0.5-1.0)
[2023-09-01 19:19] LABS: Troponin I* 0.01 ng/mL (0.01-0.04)
[2023-09-01 19:20] LABS: PCR FLU A Negative PCR FLU A (Negative); PCR FLU B Negative PCR FLU B (Negative); PCR RSV Negative PCR RSV (Negative); SARS PCR* Negative SARS-CoV-2 (Negative)
[2023-09-01 19:20] LABS: NT Pro B Type NatriureticPept* 2600 pg/mL
[2023-09-01] MEDS: FUROSEMIDE 10 MG/ML inj 40 MG IVP (19:38)
[2023-09-01 21:15] LABS: Troponin, Point-of-Care* 0.01 ng/ml (0.01-0.04)
--- NOTE | 2023-09-01 21:50 | P.IMHP_ITS ---
Hospitalist- H&P: HPI History of Present Illness Date Seen: 09/01/23 Chief complaint: Short of breath Narrative: Brittani Casanova is a 83 year old female with paroxysmal atrial fibrillation, heart failure, obesity, sleep apnea, defibrillator/ Pacemaker admitted through the emergency department with onset of dyspnea today. During the day today she was meeting with her senior case manager and her daughter and she had an episode where she appeared to be quite dyspneic. They called 911 and she was brought here to the emergency department. in the emergency department she has reports feeling better with less dyspnea though she has borderline hypoxic with O2 sats between 88 and 92%. She has not been ill with respiratory infection symptoms other than her dyspnea and cough. Her granddaughter is present and notes that she did have some dyspnea last week as well. She has a history of heart failure with mildly reduced ejection fraction of 45% though more recently she had a preserved ejection fraction of 53% on an echocardiogram from March 2020. patient does not take her furosemide daily as prescribed. She does not like taking furosemide because it causes urinary frequency. She has had increased swelling in her ankles recently as well. She has a history of asthma and uses inhaler for that. She has a history of a VFib arrest and has a defibrillator. She has a history of atrial fibrillation, recurrent with complex ablation. Review of Systems Narrative: Patient reports no concerns except those noted above. [facility] Medical History (Updated 09/01/23 @ 22:12 by Bartolo Graves MD) Chronic anticoagulation ?Z79.01 - nursing home (current) use of anticoagulants (ICD-10) Stage 3 chronic kidney disease ?N18.30 - Chronic kidney disease, stage 3 unspecified (ICD-10) Anxiety ?F41.9 - Anxiety disorder, unspecified (ICD-10) Cognitive impairment ?R41.89 - Other symptoms and signs involving cognitive functions and awareness (ICD-10) Generalized osteoarthritis ?M15.9 - Polyosteoarthritis, unspecified (ICD-10) Lumbar spinal stenosis ?M48.061 - Spinal stenosis, lumbar region without neurogenic claudication (ICD-10) Hyperlipidemia ?E78.5 - Hyperlipidemia, unspecified (ICD-10) Asthma ?J45.909 - Unspecified asthma, uncomplicated (ICD-10) Depression ?F32.A - Depression, unspecified (ICD-10) Chronic, continuous use of opioids ?F11.90 - Opioid use, unspecified, uncomplicated (ICD-10) Chronic back pain ?M54.9 - Dorsalgia, unspecified (ICD-10) ?G89.29 - Other chronic pain (ICD-10) Insomnia ?G47.00 - Insomnia, unspecified (ICD-10) Fibromyalgia ?M79.7 - Fibromyalgia (ICD-10) Sleep apnea ?G47.30 - Sleep apnea, unspecified (ICD-10) Obesity ?E66.9 - Obesity, unspecified (ICD-10) History of stroke ?Z86.73 - Personal history of transient ischemic attack (TIA), and cerebral infarction without residual deficits (ICD-10) Medical non-compliance ?Z91.199 - Patient's noncompliance with other medical treatment and regimen due to unspecified reason (ICD-10) Heart failure with preserved ejection fraction ?I50.30 - Unspecified diastolic (congestive) heart failure (ICD-10) Atrial fibrillation ?I48.91 - Unspecified atrial fibrillation (ICD-10) Hypertension ?I10 - Essential (primary) hypertension (ICD-10) Hypothyroidism ?E03.9 - Hypothyroidism, unspecified (ICD-10) Surgical History (Updated 09/01/23 @ 22:06 by Bartolo Graves MD) History of bilateral knee arthroplasty ?Z96.653 - Presence of artificial knee joint, bilateral (ICD-10) History of hysterectomy ?Z90.710 - Acquired absence of both cervix and uterus (ICD-10) History of surgery on right wrist ?Z98.890 - Other specified postprocedural states (ICD-10) History of arthroplasty of left shoulder ?Z96.612 - Presence of left artificial shoulder joint (ICD-10) History of cataract surgery ?Z98.49 - Cataract extraction status, unspecified eye (ICD-10) History of implantable cardioverter-defibrillator (ICD) placement ?Z95.810 - Presence of automatic (implantable) cardiac defibrillator (ICD-10) Family History (Updated 09/01/23 @ 22:07 by Bartolo Graves MD) Other AAA (abdominal aortic aneurysm) Lung cancer Social History (Updated 09/01/23 @ 22:09 by Bartolo Graves MD) Narrative: she lives in a senior apartment in [place]. 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 She gets meals there but does some of her own cooking. She walks with a walker when she leaves her apartment and walks with a cane inside her apartment. She has a nurse come by weekly and set up her medications. She also has a senior case manager that she was visiting with today. She does not smoke. She does not drink alcohol. Her daughter Fatimah is healthcare power of criminal defense attorney. Her granddaughter is 1 of her care providers as well. Code status is DNR. Meds Home Medications and Allergies Home Medications Medication Instructions Recorded Confirmed Type albuterol sulfate 90 mcg/actuation inhalation 09/01/23 History aerosol inhaler atorvastatin 10 mg tablet 10 mg PO DAILY 09/01/23 09/01/23 History dronedarone 400 mg tablet (Multaq) 200 mg PO BIDWMEAL 09/01/23 09/01/23 History furosemide 20 mg tablet 20 mg PO DAILY 09/01/23 09/01/23 History gabapentin 300 mg capsule 300 mg PO DAILY 09/01/23 09/01/23 History isosorbide mononitrate 30 mg 15 mg PO DAILY 09/01/23 09/01/23 History tablet,extended release 24 hr levothyroxine 112 mcg tablet 112 mcg PO DAILY 09/01/23 09/01/23 History metoprolol succinate 50 mg 25 mg PO DAILY 09/01/23 09/01/23 History tablet,extended release 24 hr potassium chloride 10 mEq 10 meq PO DAILY 09/01/23 09/01/23 History capsule,extended release warfarin 2 mg tablet 2 mg PO DAILY 09/01/23 09/01/23 History Allergies Allergy/AdvReac Type Severity Reaction Status Date / Time lisinopril Allergy Unknown Verified 09/01/23 17:46 Exam Narrative: Exam Narrative: She is alert and appears in no distress. She gives her own history corroborated by her daughter. She is forgetful of many details. Head is without trauma. Eyes normal. Oropharynx with marked dental loss and dental decay. Neck is supple without mass or adenopathy. Respirations are clear to auscultation with a few basilar crackles. No wheezing. Fair air exchange all lung nick. Cardiovascular: S1, S2, 2/6 systolic ejection murmur. Relatively regular rhythm. Abdomen: Bowel sounds active. Abdomen is soft without tenderness. External genitalia normal. Extremities with 3+ edema bilaterally involving the feet and ankles. Feet are somewhat cool to touch. Const: Vital Signs, click to edit/add: Vital Signs - 24 hr 09/01/23 17:37 09/01/23 18:10 09/01/23 18:11 Temperature 98.9 F Pulse Rate [Pulse Oximeter] 71 73 Respiratory Rate 16 16 Blood Pressure [Ri ght Forearm] 155/86 H 135/95 H Pulse Oximetry 91 89 89 Oxygen Delivery Me thod Room Air Room Air 09/01/23 18:31 Temperature Pulse Rate [Pulse Oximeter] 68 Respiratory Rate 16 Blood Pressure [Ri ght Forearm] 137/85 Pulse Oximetry 89 Oxygen Delivery Me thod Room Air Hospitalist - H&P: Result Labs Labs: Short CBC 09/01/23 Range/Units 18:41 WBC 5.51 (4.50-11.00) K/uL Hgb 12.1 (12.0-16.0) gm/dL Hct 39.4 (33.0-51.0) % Plt Count 162 (140-440) K/uL BMP 09/01/23 18:41 Sodium 135 Potassium 4.4 Chloride 102 Carbon Dioxide 25 BUN 13 Creatinine 1.2 Glucose 90 Calcium 8.9 Cardiac Enzymes 09/01/23 Range/Units 18:41 Troponin I 0.01 (0.01-0.04) ng/mL Liver Function 09/01/23 Range/Units 18:41 Total Bilirubin 1.3 (0.1-1.5) mg/dL AST 26 (12-35) U/L ALT 15 (4-35) U/L Alkaline Phosphatase 205 H (40-150) U/L Albumin 4.2 (3.3-5.0) g/dL Imaging Chest x-ray: Radiologist's impression: NDICATION: Dyspnea, history of congestive heart failure TECHNIQUE: Chest radiograph, 1 view. COMPARISON: Chest radiographs 05/28/2018. FINDINGS: Lines/Tubes/Devices: Left anterior chest wall AICD device. Mediastinum: Stable magnified cardiac silhouette, likely enlarged. Tortuous thoracic aorta. Atherosclerotic calcifications of the aortic arch. Lungs: Bilateral veil like haziness of the lung nick, right greater than left. Mild pulmonary vascular congestion and increased interstitial lung markings compatible with interstitial edema. Airways: The trachea remains midline. Pleura: There is obscuration of the right hemidiaphragm, suggestive of small pleural effusion. There may be a trace left pleural effusion. No pneumothorax. Bones: Status post total left shoulder arthroplasty. No acute osseous abnormalities. Upper Abdomen: Unremarkable. IMPRESSION: Mild pulmonary vascular congestion, interstitial edema and small pleural effusions, suggestive of congestive heart failure. A superimposed pneumonia should be clinically excluded. Assessment and Plan Assessment and plan (1) Atrial fibrillation: Problem comment: status post ablation. Pacemaker. Antiarrhythmic. Warfarin. Status: Acute (2) Chronic anticoagulation: Status: Acute (3) Medical non-compliance: Problem comment: does not take diuretics as prescribed and does not follow a low-sodium diet Status: Acute (4) Cognitive impairment: Status: Acute (5) Heart failure with preserved ejection fraction: Status: Acute Plan patient be admitted to the hospital for management of heart failure. Initiate IV furosemide tonight and tomorrow morning with transition to daily oral furosemide. Will also add in low-dose spironolactone. Obtain echocardiogram. Assess functional status for return to independent living. Total time spent today is 75 minutes, 55 minutes in coordination of care and discussing with patient, family and other providers management of heart failure.
[2023-09-01] MEDS: HYDROCODONE-ACETAMIN 5-325 MG 1 TAB PO (22:33)
[2023-09-01] MEDS: POTASSIUM BICARB 25 MEQ EFFERVESCENT TAB PO (22:33)
[2023-09-01] MEDS: WARFARIN 3 MG TABLET PO (22:34)
[2023-09-01] MEDS: SPIRONOLACTONE 25 MG TABLET 12.5 MG PO (22:37)
[2023-09-01] MEDS: ZOLPIDEM 5 MG TABLET PO (22:39)
[2023-09-01 23:00] VITALS: RESP 20; O2SAT 88
[2023-09-01 23:33] VITALS: BP 170/96; RESP 20; TEMP 36.6; O2SAT 88; BMI 39.0
[2023-09-02] VITALS (7 sets, daily range): BP systolic 126–151; BP diastolic 68–91; PULSE 69–70; RESP 16–18; TEMP 36.4–36.7; O2SAT 90–93
[2023-09-02] MEDS: FUROSEMIDE 10 MG/ML inj 40 MG IVP (06:36)
[2023-09-02] MEDS: LEVOTHYROXINE 112 MCG TABLET PO (06:36)
[2023-09-02] MEDS: HYDROCODONE-ACETAMIN 5-325 MG 1 TAB PO (06:36)
[2023-09-02 06:40] LABS: HCO3 VBG 33 mmol/L (21-28); PCO2 VBG 53 mmHG (40-50); PO2 VBG 57.6 mmHG (25-47); pH VBG 7.394 (7.32-7.43)
[2023-09-02 06:48] LABS: Basophils Absolute Auto 0.01 K/uL (0.00-0.30); Basophils Percent Auto 0.2 % (0.0-3.0); Eosinophils Percent Auto 1.9 % (0.0-7.0); Hematocrit 38.9 % (33.0-51.0); Hemoglobin* 12.2 gm/dL (12.0-16.0); Immature Granulocytes Abs Auto 0.01 K/uL (0.00-0.30); Immature Granulocytes Pct Auto 0.2 %; Lymphocytes Absolute Auto 1.66 K/uL (0.90-2.90); Lymphocytes Percent Auto 31.1 % (20-44); Mean Corpuscular HGB Conc 31 gm/dL (32-36); Mean Corpuscular Hemoglobin 29 pg (26-34); Mean Corpuscular Volume 91 fL (80-100); Monocytes Percent Auto 9.4 % (0.0-11.0); Neutrophils Absolute Auto 3.06 K/uL (1.7-7.0); Neutrophils Percent Auto 57.2 % (42.0-72.0); Platelet Count* 155 K/uL (140-440); RDW Coefficient of Variation % 14.5 % (11.5-15.5); Red Blood Count 4.28 m/uL (4.00-5.20); White Blood Count* 5.34 K/uL (4.50-11.00)
[2023-09-02 07:04] LABS: INR 1.48 (0.91-1.10); Prothrombin Time 18.9 Seconds
[2023-09-02 07:08] LABS: Chloride* 98 mmol/L (96-114); Potassium* 4.3 mmol/L (3.6-5.1); Sodium* 136 mmol/L (135-149)
[2023-09-02 07:09] LABS: Slide Review Reflex No
[2023-09-02 07:11] LABS: Anion Gap 7 mEq/L (7-15); Calcium* 9.2 mg/dL (8.4-10.6); Carbon Dioxide* 31 mmol/L (20-32); Creatinine* 1.2 mg/dL (0.5-1.5); Est. Creatinine Clearance* 30.42; Estimated Glomerular Filt Rate 45 ml/min; Glucose* 85 mg/dL (60-115)
[2023-09-02] MEDS: POTASSIUM BICARB 25 MEQ EFFERVESCENT TAB PO (07:22)
[2023-09-02 07:28] LABS: Blood Urea Nitrogen* 13 mg/dL (7-30)
--- NOTE | 2023-09-02 07:57 | PC.NURSE ---
Pt alert and oriented x3. Afebrile. Pt reports 8/10 generalized pain, pain managed with PRN medications. Pt denies chest pain, SOB at rest and N/V. SOB is noted with exertion. Pt reported room being cold overnight, RN turned up temp in room, put on robe and gave warm blankets, pt still felt cold, warehouse analyst called maintenance to turn up room temp, pt reported improvement. Pt is up SBA to commode due to frequency, pt refused brief stating its just easier to go without since I am up going to the bathroom all the time. Pt slept intermittently throughout night. IV in left hand was removed per pt request catheter was CDI. New IV was inserted in left forearm, pt tolerated well. Pt requested all blood pressures be taken on right arm due to left arm pain from previous surgeries. RN put pink restricted arm band on left wrist.
[2023-09-02] MEDS: ISOSORBIDE MONONITRATE ER 30 MG TAB 15 MG PO (08:42)
[2023-09-02] MEDS: ATORVASTATIN 10 MG TABLET PO (08:42)
[2023-09-02] MEDS: SODIUM CHLORIDE 0.9 % (FLUSH) 10 ML SYRINGE 5 ML IVF (08:43)
[2023-09-02] MEDS: GABAPENTIN 300 MG CAPSULE PO (08:43)
[2023-09-02] MEDS: METOPROLOL SUCCINATE (XL) 50 MG TAB 25 MG PO (08:43)
[2023-09-02] MEDS: SPIRONOLACTONE 25 MG TABLET 12.5 MG PO (08:43)
--- NOTE | 2023-09-02 10:52 | RESP.RT ---
Home oxygen and resp assesment completed. Patient on room air at rest with spo2 93%. Patient on room air with exercise with spO2 90%. No oxygen needed. RN notified. 3 part oxygen test documented. Patient ambulated without incident.
[2023-09-02] MEDS: FUROSEMIDE 40 MG TABLET PO (12:02)
--- NOTE | 2023-09-02 14:22 | PC.NURSE ---
End of shift report: Patient pleasant, cooperative. Sensitive to touch especially on right arm. [place] in left ear as well. Ambulates with SBA and a walker. Alert and oriented X3. RT assessed for the need for home oxygen. Determined that patient does not need oxygen at home. Has remained on RA at rest and with activity. Has voided several times. LBM yesterday. PIV patent and intact. Tele shows Apaced with 1st degree block. Lung sounds are diminished. Vital signs within normal limits. Echo completed at bedside. Waiting on results. Have updated daughter that patient will tentatively be leaving today pending echo results. She would like to be called once we know if patient is being discharged today or not. TEDs in place. Recommended patient wear them at home. She stated she has put them on before but it takes her a long time. She has a [facility] nurse that comes in once a week to help with her medications. Her granddaughter also comes to help her 3 times a week. Asked daughter if she felt patient needed more help than what she is receiving at this time and daughter felt that she had enough help.
--- NOTE | 2023-09-02 14:58 | NUTR.NU ---
RDN with diet education related to heart failure. Patient admitted for A.fib and heart failure. Current height 5ft 3in; weight 218lb; BMI 38.6 kg/m2. Current diet is 2 gram Sodium. Meal intakes have been 25% and 50% since admit. Patient resides in independent assisted living and receives 1 meal daily. RDN visited with patient whom reports not following a specific diet at home. She reports using the salt shaker, however she understands she needs to limit this. She agreed to receive diet educational materials related to heart failure, however she declined education at this time. Patient also declined RDN speaking to designated caregiver regarding diet education, reporting she will have family look over the materials with her. She plans on sharing information with family. RDN's contact information was provided and patient was encouraged to contact RDN with questions.
--- NOTE | 2023-09-02 15:05 | P.DS_ITS ---
DS: Providers Provider Time Seen by Provider: 09:24 Date Seen: 09/02/23 Date of admission: 09/01/23 21:38 Primary care physician: Avani Barth MD Admitting Clinician: Bartolo Graves MD Attending Physician on discharge: Alyssa Zepeda MD Date of Discharge: 09/02/23 DS: Diagnosis Discharge Diagnosis (1) Heart failure with preserved ejection fraction: Status: Acute (2) Chronic anticoagulation: Status: Chronic Problem details: for atrial fibrillation (3) Cognitive impairment: Status: Chronic (4) Medical non-compliance: Status: Acute Problem details: does not take diuretics as prescribed and does not follow a low-sodium diet (5) Atrial fibrillation: Status: Acute Problem details: status post ablation. Pacemaker. Antiarrhythmic. Warfarin. (6) Aortic stenosis: Status: Acute Problem details: 09/02/23 moderate stenosis (7) Mitral stenosis: Status: Acute Problem details: 09/02/23 moderate-severe mitral stenosis (8) Abnormal echocardiogram: Status: Acute Problem details: 09/02/23 1. Normal left ventricular size, mildly increased wall thickness, normal global systolic function, calculated EF of 62 %. 2. Right ventricular cavity size is mildly enlarged, global systolic RV function is normal. 3. Mildly enlarged left atrium. 4. The aortic valve is calcified, moderate stenosis and mild regurgitation. The aortic valve peak velocity is 2.7 m/s, the peak gradient is 29 mmHg, and the mean gradient is 16 mmHg. The aortic valve area is 1.13 cm?? with a dimensionless index of 0.30. The stroke volume index is 36.9 ml/m??. 5. The mitral valve is severe mitral annular calcification with calcification extending to the subvalvular apparatus, mild mitral regurgitation. 6. The peak and mean transmitral gradients are 11.7 and 4.5 mmHg (heart rate 71bpm). By CE, the MVA (MV VTI = 48.4cm) = 1.54cm2. Overall, there is moderate- severe mitral stenosis. Suggest clinical correlation and WIN for further evaluation. 7. Tricuspid valve is normal. 8. Severely increased estimated pulmonary pressures by tricuspid regurgitation velocity and right atrial pressure (70 mmHg plus RAP). 9. No pericardial effusion. DS: Summary Hospital Course Hospital Course: This is an 83-year-old female with history of paroxysmal atrial fibrillation, heart failure, obesity, sleep apnea, defibrillator/pacemaker who had sudden onset of shortness of breath. The patient admitting provider that she did not like taking her furosemide because it cause urinary frequency and had not been taking it daily as prescribed. She was given couple doses of IV furosemide yesterday and was started on spironolactone. She is doing much better today and is no longer requiring oxygen at rest or with ambulation. Echocardiogram results are below and it is noted that there is been some worsening in several valves. Since she is clinically better, I have spoken with her daughter and will be discharging her back to her independent living today and I have asked her to follow-up with her kiss mixer as an outpatient. Her daughter will be monitoring her medications periodically to see if she is taking them as prescribed. Time Spent with Patient Time attestation: Total time spent providing and/or coordinating discharge services: Exam Narrative: Exam Narrative: General: No acute distress. Awake, alert, oriented x3. No pallor. No jaundice. Cardiovascular: Regular rate and rhythm. Grade 2/6 systolic murmur. Respiratory: No increased work of breathing. Clear to auscultation bilaterally. No wheezes or crackles. Abdomen: Bowel sounds present. Soft, nondistended, nontender. Extremities: 2+ bilateral pedal edema. Const: Vital Signs, click to edit/add: Vital Signs - 24 hr 09/01/23 17:37 09/01/23 18:10 09/01/23 18:11 Temperature 98.9 F Pulse Rate Pulse Rate [Pulse Oximeter] 71 73 Respiratory Rate 16 16 Blood Pressure [Ri ght Arm] Blood Pressure [Ri ght Forearm] 155/86 H 135/95 H Pulse Oximetry 91 89 [facility] 09/01/23 18:31 09/01/23 23:00 09/01/23 23:33 Temperature 97.8 F Pulse Rate Pulse Rate [Pulse Oximeter] 68 Respiratory Rate 16 20 20 Blood Pressure [Ri ght Arm] 170/96 H Blood Pressure [Ri ght Forearm] 137/85 Pulse Oximetry 89 88 88 Oxygen Delivery Ne thod Room Air Room Air Room Air 09/01/23 23:33 09/02/23 01:30 09/02/23 03:25 Temperature 97.6 F Pulse Rate 69 Pulse Rate [Pulse Oximeter] Respiratory Rate 20 18 Blood Pressure [Ri ght Arm] 151/91 H Blood Pressure [Ri ght Forearm] Pulse Oximetry 88 90 Oxygen Delivery Me thod Room Air Room Air 09/02/23 07:47 09/02/23 08:00 09/02/23 09:17 Temperature 97.6 F Pulse Rate 70 Pulse Rate [Pulse Oximeter] 70 Respiratory Rate 16 Blood Pressure [Ri ght Arm] 131/89 Blood Pressure [Ri ght Forearm] Pulse Oximetry 93 93 Oxygen Delivery Me thod Room Air Room Air 09/02/23 10:52 09/02/23 12:04 Temperature 98.1 F Pulse Rate Pulse Rate [Pulse Oximeter] 69 Respiratory Rate 16 Blood Pressure [Ri ght Arm] 126/68 Blood Pressure [Ri ght Forearm] Pulse Oximetry 90 Oxygen Delivery Me thod Room Air Room Air DS: Data Data Completed and Pending Completed studies during hospitalization: 09/01/2023 EKG: Undetermined rhythm, left axis deviation, pulmonary disease pattern, septal infarct, 71 beats per minute. Ordering Physician: Palmira Treviño M.D. Date of Service: 09/01/23 Procedure(s): XR chest 1V portable Accession Number(s): [id number] cc: Palmira Treviño M.D.; Avani Barth M.D.~ For Patients: As a result of the Century Cures Act, medical imaging exams and procedure reports are released immediately into your electronic medical record. You may view this report before your referring provider. If you have questions, please contact your health care provider. INDICATION: Dyspnea, history of congestive heart failure TECHNIQUE: Chest radiograph, 1 view. COMPARISON: Chest radiographs 05/28/2018. FINDINGS: Lines/Tubes/Devices: Left anterior chest wall AICD device. Mediastinum: Stable magnified cardiac silhouette, likely enlarged. Tortuous thoracic aorta. Atherosclerotic calcifications of the aortic arch. Lungs: Bilateral veil like haziness of the lung nick, right greater than left. Mild pulmonary vascular congestion and increased interstitial lung markings compatible with interstitial edema. Airways: The trachea remains midline. Pleura: There is obscuration of the right hemidiaphragm, suggestive of small pleural effusion. There may be a trace left pleural effusion. No pneumothorax. Bones: Status post total left shoulder arthroplasty. No acute osseous abnormalities. Upper Abdomen: Unremarkable. IMPRESSION: Mild pulmonary vascular congestion, interstitial edema and small pleural effusions, suggestive of congestive heart failure. A superimposed pneumonia should be clinically excluded. Dictated by Chucky Aguirre MD @ 09/01/2023 7:11:11 PM (Electronically Signed) Labs on day of discharge: Labs from last 24 hours 09/02/23 09/01/23 09/01/23 06:10 21:44 21:09 WBC 5.34 RBC 4.28 Hgb 12.2 Hct 38.9 MCV 91 MCH 29 MCHC 31 L RDW Coeff of Angela 14.5 Plt Count 155 Neut % (Auto) 57.2 Lymph % (Auto) 31.1 [place] % (Auto) 9.4 Eos % (Auto) 1.9 Baso % (Auto) 0.2 Neut # (Auto) 3.06 Lymph # (Auto) 1.66 [place] # (Auto) 0.50 Eos # (Auto) 0.10 Baso # (Auto) 0.01 Abs Immat Gran (auto) 0.01 Imm/Tot Granulo (auto) 0.2 INR 1.48 H APTT D-Dimer Quant (PE/DVT) VBG pH 7.394 VBG pCO2 53 H VBG pO2 57.6 H VBG HCO3 33 H Sodium 136 Potassium 4.3 Chloride 98 Carbon Dioxide 31 Anion Gap 7 BUN 13 Creatinine 1.2 Estimated Creat Clear 30.42 Estimated GFR 45 Glucose 85 Lactate Calcium 9.2 Magnesium Total Bilirubin AST ALT Alkaline Phosphatase Troponin I C-Reactive Protein NT-Pro-B Natriuret Pep Total Protein Albumin TSH SARS-CoV-2 (PCR) Influenza Type A (PCR) Influenza Type B (PCR) RSV (PCR) Lab Acknowledgement Test Added POC Troponin I 0.01 09/01/23 09/01/23 18:41 18:11 WBC 5.51 RBC 4.28 Hgb 12.1 Hct 39.4 MCV 92 MCH 28 MCHC 31 L RDW Coeff of Angela 14.4 Plt Count 162 Neut % (Auto) 61.6 Lymph % (Auto) 28.9 [place] % (Auto) 7.8 Eos % (Auto) 1.3 Baso % (Auto) 0.2 Neut # (Auto) 3.40 Lymph # (Auto) 1.59 [place] # (Auto) 0.40 Eos # (Auto) 0.07 Baso # (Auto) 0.01 Abs Immat Gran (auto) 0.01 Imm/Tot Granulo (auto) 0.2 INR 1.70 H APTT 36 H D-Dimer Quant (PE/DVT) 0.29 VBG pH 7.406 VBG pCO2 45 VBG pO2 47.2 H VBG HCO3 28 Sodium 135 Potassium 4.4 Chloride 102 Carbon Dioxide 25 Anion Gap 8 BUN 13 Creatinine 1.2 Estimated Creat Clear 30.42 Estimated GFR 45 Glucose 90 Lactate 1.0 Calcium 8.9 Magnesium 2.3 Total Bilirubin 1.3 AST 26 ALT 15 Alkaline Phosphatase 205 H Troponin I 0.01 C-Reactive Protein 0.7 NT-Pro-B Natriuret Pep 2600 Total Protein 7.7 Albumin 4.2 TSH 4.890 H SARS-CoV-2 (PCR) Negative SARS-CoV-2 Influenza Type A (PCR) Negative PCR FLU A Influenza Type B (PCR) Negative PCR FLU B RSV (PCR) Negative PCR RSV Lab Acknowledgement POC Troponin I Discharge Plan Discharge Disposition: Home, Self-Care Date of Admission: 09/01/23 21:38 Attending Provider on Discharge: Alyssa Zepeda Primary Care Provider: Avani Barth Condition: Improved Anticipated Discharge Date/Time: 09/02/23 15:24 Discharge Medications: New spironolactone 25 mg tablet 12.5 mg PO DAILY Qty: 15 0RF Continued atorvastatin 10 mg tablet 10 mg PO DAILY metoprolol succinate 50 mg tablet extended release 24 hr 25 mg PO DAILY isosorbide mononitrate 30 mg tablet extended release 24 hr 15 mg PO DAILY gabapentin 300 mg capsule 300 mg PO DAILY albuterol sulfate 90 mcg/actuation HFA aerosol inhaler inhalation levothyroxine 112 mcg tablet 112 mcg PO DAILY Multaq 400 mg tablet 200 mg PO BIDWMEAL warfarin 2 mg tablet 2 mg PO DAILY furosemide 20 mg tablet 20 mg PO DAILY Discontinued potassium chloride 10 mEq capsule, extended release 10 meq PO DAILY Discharge Orders: Discharge Order (Routine); Ordered 09/02/23 Ordered By: Alyssa Zepeda Additional Instructions: INR Friday. Paige @ [facility] 2-4 weeks. Activity Level: No Restrictions Discharge Diet: Regular Follow Up Appointments: Avani Barth MD [Primary Care Provider] - Angel Lawson MD [Referring] - () Forms: [facility] Info Instructions
--- NOTE | 2023-09-02 17:25 | PC.NURSE ---
pt d/c home at 1713. discharge packet reviewed and signed. d/c education provided, hospitalist rounded with pt and family prior to d/c to touch base on muscle cramping that can accompany diuresis. IV d/c, cath intact.
== END 2023-09-02 17:13 | disposition home or self-care (01) ==
LOC: ED 21:11 → MEDSURG 21:38
PROVIDERS: Admitting Provider Family Medicine; Emergency Provider Family Medicine; PCP Colon & Rectal Surgery; Visit Provider Family Medicine
DX: I50.30 Unspecified diastolic (congestive) heart failure (principal); R93.1 Abnormal findings on diagnostic imaging of heart and coronary circulation; I48.0 Paroxysmal atrial fibrillation; I35.2 Nonrheumatic aortic (valve) stenosis with insufficiency; I34.2 Nonrheumatic mitral (valve) stenosis; I34.0 Nonrheumatic mitral (valve) insufficiency; I34.81 Nonrheumatic mitral (valve) annulus calcification; I51.7 Cardiomegaly; R60.0 Localized edema; Z91.199 Patient's noncompliance with other medical treatment and regimen due to unspecified reason; E66.9 Obesity, unspecified; Z68.38 Body mass index [BMI] 38.0-38.9, adult; R05.9 Cough, unspecified; G47.33 Obstructive sleep apnea (adult) (pediatric); I12.9 Hypertensive chronic kidney disease with stage 1 through stage 4 chronic kidney disease, or unspecified chronic kidney disease; N18.30 Chronic kidney disease, stage 3 unspecified; E78.5 Hyperlipidemia, unspecified; M79.7 Fibromyalgia; E03.9 Hypothyroidism, unspecified; F11.21 Opioid dependence, in remission; G89.29 Other chronic pain; M54.9 Dorsalgia, unspecified; M85.88 Other specified disorders of bone density and structure, other site; R41.89 Other symptoms and signs involving cognitive functions and awareness; Z79.01 Long term (current) use of anticoagulants; Z98.49 Cataract extraction status, unspecified eye; Z87.898 Personal history of other specified conditions; Z87.09 Personal history of other diseases of the respiratory system; Z86.79 Personal history of other diseases of the circulatory system; Z86.73 Personal history of transient ischemic attack (TIA), and cerebral infarction without residual deficits; Z95.810 Presence of automatic (implantable) cardiac defibrillator; Z95.0 Presence of cardiac pacemaker; Z96.653 Presence of artificial knee joint, bilateral; Z96.612 Presence of left artificial shoulder joint; Z90.710 Acquired absence of both cervix and uterus; Z98.890 Other specified postprocedural states; Z66 Do not resuscitate
CPT/HCPCS: 36415; 71045; 80048; 80053; 82803; 83605; 83735; 83880; 84443; 84484; 85025; 85379; 85610; 85730; 86140; 87631; 93005; 93306; 94761; 96374; 96376; 99284; 99285; G0378; A9270; J1940

== ENCOUNTER 2024-09-25 06:20 | Inpatient (IN) | payer MEDICARE, OTHER, SELFPAY ==
[2024-09-25] VITALS (50 sets, daily range): BP systolic 96–131; BP diastolic 51–93; PULSE 61–76; RESP 13–28; TEMP 36.3–36.6; O2SAT 86–99; BMI 32.4
[2024-09-25 07:15] LABS: Basophils Absolute Auto 0.02 K/uL (0.00-0.30); Basophils Percent Auto 0.3 % (0.0-3.0); Eosinophils Absolute Auto 0.03 K/uL (0.00-0.50); Eosinophils Percent Auto 0.4 % (0.0-7.0); Hematocrit 42.8 % (33.0-51.0); Hemoglobin* 13.7 gm/dL (12.0-16.0); Immature Granulocytes Abs Auto 0.02 K/uL (0.00-0.30); Immature Granulocytes Pct Auto 0.3 %; Lymphocytes Percent Auto 17.9 % (20-44); Mean Corpuscular HGB Conc 32 gm/dL (32-36); Mean Corpuscular Hemoglobin 30 pg (26-34); Mean Corpuscular Volume 94 fL (80-100); Monocytes Percent Auto 9.1 % (0.0-11.0); Neutrophils Absolute Auto 5.15 K/uL (1.7-7.0); Platelet Count* 159 K/uL (140-440); Red Blood Count 4.57 m/uL (4.00-5.20); White Blood Count* 7.15 K/uL (4.50-11.00)
[2024-09-25 07:18] LABS: Slide Review Reflex No
[2024-09-25 07:26] LABS: INR 2.25 (0.91-1.10)
[2024-09-25 07:27] LABS: Chloride* 90 mmol/L (96-114); Potassium* 3.4 mmol/L (3.6-5.1); Sodium* 133 mmol/L (135-149)
[2024-09-25 07:30] LABS: Anion Gap 11 mEq/L (7-15); Blood Urea Nitrogen* 20 mg/dL (7-30); Calcium* 9.1 mg/dL (8.4-10.6); Carbon Dioxide* 32 mmol/L (20-32); Creatinine* 1.7 mg/dL (0.5-1.5); Est. Creatinine Clearance* 22.03; Estimated Glomerular Filt Rate 30 ml/min; Glucose* 101 mg/dL (60-115)
--- OUTSIDE RECORDS SUMMARY | 2024-09-25 07:31 | XMS_ITS | Clinical Summary ---
Author Organization [employer] [facility] Address [address] [place] [address] Care Team Providers Care Neurology Tech Name Role Phone Angel Lawson MD Primary Care Provider [phone] Karen Baron RN Unavailable Allergies Active Allergy Reactions Criticality Noted Date Comments Lisinopril Hives Unknown 01/09/2007 Medications methyl salicylate-menthol (CYRIL CAGE; MENTHOLATUM DEEP HEAT) ointment Apply topically to affected area(s) 3 times daily if needed for Arthritis or Pain. 0 018 Active medication order composerIndications:Acu te diastolic congestive heart failure (HC),Chronic bilateral low back pain without sciatica Motorized wheelchair diagnosis: chronic low back pain, weakness, diastolic CHF 1 unit 018 Active mupirocin (BACTROBAN OINTMENT) ointmentIndications:Epi staxis Apply a small amount (pea sized) with finger or cotton swab twice daily, pinch nostril closed 22 g 11 02/21/20 22 10:03 AM CDT 021 Active calcium carbonate (Calcium 600) 600 mg calcium (1,500 mg) tabletIndications:Osteo porosis screening Take 1 Tablet (600 mg) by mouth 2 times daily with meals. 180 Tablet 3 022 Active Walker - 4 wheelsIndications:Spina l stenosis of lumbar region without neurogenic claudication Walker with seat. For home use. Length of need: 99 1 Each 022 Active durable medical equipment (DME)Indications:Spinal stenosis of lumbar region without neurogenic claudication Recliner with lift 1 Each 022 Active docusate (COLACE) 100 mg capsule Take one to three capsule's daily as needed 023 Active metoprolol succinate (TOPROL XL) 50 mg sustained-release tabletIndications:Essen tial hypertension TAKE ONE-HALF (1/2) TABLET DAILY 45 Tablet 3 024 Active dronedarone (Multaq) 400 mg tab tabletIndications:PAF (paroxysmal atrial fibrillation) (HC) Take 0.5 Tablets (200 mg) by mouth two times daily with meals. 90 Tablet 3 024 Active FLUoxetine (PROZAC) 10 mg capsuleIndications:Depr ession, major, single episode, severe (HC),Grief reaction Take 1 Capsule (10 mg) by mouth once daily in the morning. 30 Capsule 11 09/15/19 25 12:33 PM WATER PLANT PUMP OPERATOR 024 Active albuterol HFA (PRO-AIR; VENTOLIN; PROVENTIL) 90 mcg/actuation inhalerIndications:Asth ma, unspecified asthma severity, unspecified whether complicated, unspecified whether persistent,Moderate persistent asthma without complication USE 1 TO 2 INHALATIONS EVERY 4 HOURS IF NEEDED FOR SHORTNESS OF BREATH 25.5 g 6 Active fluticasone propion-salmeteroL (Advair HFA) 230-21 mcg/actuation inhalerIndications:Mode rate persistent asthma without complication Inhale 2 Puffs by mouth two times daily. 3 Each 3 024 Active furosemide (LASIX) 20 mg tabletIndications:Edema , unspecified type TAKE 1 TABLET DAILY NEEDED WITH THE POTASSIUM 90 Tablet 3 024 Active atorvastatin (LIPITOR) 10 mg tabletIndications:Pure hypercholesterolemia TAKE 1 TABLET AT BEDTIME 90 Tablet 2 024 Active zolpidem (AMBIEN) 5 mg tabletIndications:Insom antwan due to medical condition Take 1 Tablet (5 mg) by mouth at bedtime. 30 Tablet 5 09/14/19 25 12:52 PM WATER PLANT PUMP OPERATOR 024 Active warfarin (COUMADIN) 2 mg tabletIndications:Parox ysmal atrial fibrillation (HC),Anticoagulation monitoring, INR range 2-3 Take by mouth 3 mg (2 mg x 1.5) every Mon; 2 mg (2 mg x 1) all other days in the evening OR as directed 100 Tablet 025 Active gabapentin (NEURONTIN) 300 mg capsuleIndications:Inso mnia due to medical condition TAKE 1 CAPSULE AT BEDTIME 90 Capsule 025 Active spironolactone (ALDACTONE) 25 mg tabletIndications:Essen tial hypertension Take one-half Tablet (12.5 mg) by mouth once daily. 45 Tablet 08/14/19 25 11:34 AM WATER PLANT PUMP OPERATOR 025 Active Synthroid 112 mcg tabletIndications:Hypot hyroidism, unspecified type TAKE 1 TABLET DAILY 90 Tablet 3 025 Active HYDROcodone-acetaminoph en (5-325 mg/tablet)Indications:C ontrolled substance agreement signed,Chronic bilateral low back pain without sciatica,Spinal stenosis of lumbar region without neurogenic claudication Take 1 tablet by mouth 3 times daily as needed for severe pain 90 Tablet 09/14/19 25 7:20 PM WATER PLANT PUMP OPERATOR 025 Active HYDROcodone-acetaminoph en (5-325 mg/tablet)Indications:C ontrolled substance agreement signed,Chronic bilateral low back pain without sciatica,Spinal stenosis of lumbar region without neurogenic claudication Take 1 tablet by mouth 3 times daily as needed for severe pain 90 Tablet 08/17/19 25 3:02 PM WATER PLANT PUMP OPERATOR 025 2024 Disconti nued(Reo rder (E-cance l not sent)) Active Problems Patient Care Coordination No te Formatting of this note migh t be different from the original. 01/10/2014 These are the most important things for my care team to know about me: It's very important that my doctors are honest with me. I don't want it sugarcoated. I want the blunt truth. Do not talk to my children first. Talk to me because I am the one who has to arrange my life. Don't go behind my back and give out information about me without telling me or getting my permission. 02/19/2013 Brittani Casanova has elected to enroll in the [facility] research project and meets inclusion criteria through diagnosis of heart failure. Paola Denney is assigned as [facility] Care Guide. Paola Denney .................... 02/19/2013 12:18 PM Problem Noted Date Diagnosed Date Acute on chronic diastolic congestive heart fail ure 09/05/2023 Chronic obstructive pulmonar y disease, unspecified COPD type 09/05/2023 Cataract 07/31/2023 Opioid dependence, uncomplicated 10/06/2020 Morbid [...] 28.9 03/04/2011 Issue of repeat prescriptions 01/03/2011 Overview (03/05/2019): [place] 5/325 #120/month. Spinal stenosis of lumbar re gion without neurogenic claudication 01/03/2011 Generalized osteoarthrosis, unspecified site 03/2011 Osteopenia 01/03/2011 Advance care planning 12/25/2010 Overview (10/07/2017): Patient has identified Health Care Agent(s): Yes [...] Jazmín Cheung as her primary healthcare agent. [phone]. Her son Star Ibrahim is no longer her healthcare agent as of 10/14/14. Understanding of Illness and Disease [place]: Brittani identifies her medical condition as heart [...] stops' OR I have little chance of long-term survival if my heart stops and the [...] care agents to follow up with this clinical writer (CLAUDE Montanez-[facility]) if and when there are questions related to Advance Care Planning, and/or Health Care Agent information/understanding. Brittani would benefit from: Home Care Care Navigation Help Desk Care Navigation brochure(s) was given to Brittani. Advance Care Planning recommendations and Brittani's concerns and questions were cc e d to her primary provider. Interviewer: KATELYN Montanez, [facility] [phone] 10/13/2013 11:37 AM 10/07/2013 H/O CVA (cerebral vascular accident) 08/03/2010 Overview (12/06/2010): -Hospitalized in [place] Superficial phlebitis 08/01/2010 Hyperlipidemia 07/06/2010 Major depression, recurrent 07/06/2010 Hypothyroidism 07/05/2010 Chronic back pain Fibromyalgia Paroxysmal atrial fibrillation Overview (03/26/2012): - initial episode 08/01/10: s/p DCCV 08/03/2010 [...] Flecainide Asthma H/O Diastolic Congestive Heart Failure Overview (12/13/2010): -acute exacerbation 07/2010 - associated low EF 45% and afib with RVR -acute exacerbation 12/03/2010 - associated low EF 45% and afib with controlled ventricular response Plan:If weight gain >2 lbs overnight, increase Furosemide (Lasix) to 40 mg twice daily and increase potassium supplement to 20 mEq twice daily that day. Forgetfulness Overview (06/24/2018): Patient and daughter attribute this to increased [...] Encounters Date Type Department Care Team Description 09/16/2024 Telephone [facility] [address] [facility] [place] [address] Angel Lawson MD Anticoagulation (Annual re-enrollment /) 09/14/2024 Refill [facility] [address] [place] [address] Angel Lawson MD Refill Request 09/13/2024 Telephone [facility] [address] [place] [address] Angel Lawson MD Form (PHYSICIAN ORDER) 09/08/2024 Anticoagulation (warfarin) [facility] [address] [place] [address] Clinic, [facility] Anticoagulation (Home care) 08/27/2024 Telephone [facility] [address] [place] [address] Angel Lawson MD Form (PHYSICIAN ORDER) 08/25/2024 Anticoagulation (warfarin) [facility] [address] [place] [address] [facility], [facility] Anticoagulation (Home care) 08/16/2024 Refill [facility] [address] [place] [address] Angel Lawson MD Refill Request (Synthroid) 08/13/2024 Refill [place] [id number] [place] [address] Angel Lawson MD Refill Request (HYDROcodone-acetamin ophen (5-325 mg/tablet)) 08/11/2024 Refill [facility] [address] [place] [address] Angel Lawson MD Refill Request (Spironolactone) 08/05/2024 Refill [place] [id number] [place] [address] Angel Lawson MD Refill Request (Warfarin clarification/) 07/29/2024 Refill [place] [id number] [place] [address] Angel Lawson MD Refill Request (Warfarin, Gabapentin) 07/16/2024 Refill [facility] [address] [place] [address] Angel Lawson MD Refill Request ([place]) 07/16/2024 Telephone [facility] [address] [place] [address] Angel Lawson MD Form (PHYSICIAN ORDER) 07/14/2024 Anticoagulation (warfarin) [facility] [address] [place] [address] Clinic, [facility] 07/09/2024 Telephone [facility] [address] [place] [address] Angel Lawson MD Form from Last 3 Months Immunizations Name Administration Dates Next Due COVID-19 VACCINE SPIKEVAX (M ODERNA 50MCG/0.5ML) 12YO+ PFS 06/27/2023 COVID-19 vaccine (TrayBio NTech 30mcg/0.3mL) PF, MDV 08/30/2020,08/09/2020 Influenza A [...] PHQ-2 Answer Date Recorded PHQ-2 TOTAL SCORE 6 02/10/2024 Social Connections Answer Date Recorded Frequency of Communication with Friends and Fami ly 4 02/20/2022 Financial Resource Strain Answer Date R ecorded [...] Housing in the Last Year 1 02/20/2022 Comments No Sex and Gender Information Value Date Recorded Sex Assigned at Not on file Legal Sex Female 7:13 AM WATER PLANT PUMP OPERATOR Gender Identity Not on file Sexual Orientation Not on file Obstetrics History Last Filed Vital Signs Vital Sign Reading Time Taken Comments Blood Pressure 118/60 02/10/2024 4:32 PM CDT Pulse 76 02/10/2024 4:32 PM CDT Temperature 36.2 C (97.1 F) 07/31/2023 9:06 AM WATER PLANT PUMP OPERATOR Respiratory Rate 20 07/31/2023 9:23 AM WATER PLANT PUMP OPERATOR Oxygen Saturation 91% 10/09/2023 8:38 AM CDT Inhaled Oxygen Concentration - - Weight 90.3 kg (199 lb) 02/10/2024 4:32 PM CDT Height 160 cm (5' 3) 10/09/2023 8:38 AM CDT Body Mass Index 35.25 10/09/2023 8:38 AM CDT Plan of Treatment Upcoming Encounters Date Type Department Care Team (Late st Contact Info) Description 10/05/2024 2:00 PM CDT Cardiac Device Check [facility] [address] [place] [phone] Health Maintenance Due Date Last Done Comments Zoster (shingles) series for age 50+ (1 of 2) 1992 RSV vaccine for adults or (1 - 1-dose 75+ series) 2017 Tetanus booster 12/20/2020 12/20/2010, 04/30/2004 COVID-19 vaccine series ( season) 2024 06/27/2023, 08/30/2020, 08/09/2020 Influenza for age 65+ 03/28/2024 06/27/2023 , 04/02/2022, 04/23/2021, Additional history exists Medicare Wellness for age 65+ 06/27/2024, 04/02/2022, 04/26/2021, Additional history exists BMI (ht and wt on same day) for age 18+ 10/08/2024 10/09/2023, 07/25/2023, 06/27/2023, Additional history exists Depression screening for age 12+ 02/10/2025 02/11/2024, 02/10/2024, 06/27/2023, Additional history exists Tdap Completed 12/20/2010 DEXA/DXA scan for age 65+ Completed 2010, 12/20/2010 (Postponed) Pneumococcal series for age 50+ Completed 04/02/2017, 03/22/2016, 12/20/2010, Additional history exists Medical Devices Implanted Type Area Bead Forming Machine Set Up Operator Device Identifier Shelf Expiration Date Model / Serial / Lot Icd Only-12/03/2011 Implanted:02/2012 (Quantity not on file) ICD Only [employer] [id number] / [id number] / Iol White Preload 1 Pc Clear 6mm 21.00 Diopter Tecnis - [id number] Implanted:Qty : 1 on 07/31/2023 by Singh Valentin MD at [facility] Opthalmology Implants Left: Eye [employer] 02/23/2026 [id number] / [id number] / N/A Iol White Preload 1 Pc Clear 6mm 20.50 Diopter Tecnis - [id number] Implanted:Qty : 1 on 07/03/2023 by Singh Valentin MD at [facility] Right: Eye [employer] 03/10/2026 [id number] / NA Procedures Procedure Name Priority Date/Time Associated Diagnosis Comments XR DXA BONE DENSITY 2 SITES AXIAL Routine 01/01/2011 3:10 PM CDT Postmenopausal from Last 3 Months or Most Recently Relevant to Health Maintenance Results * XR DEXA BONE DENSITY 2 SITES (01/01/2011 3:10 PM CDT) Anatomical Region Laterality Modality Spine, HIPS, HIPL, HIPR Other Narrative 01/03/2011 2:26 PM CDT Please see scanned document for results of this study. Procedure Note Eun Hagen PA - 01/03/2011 Please see scanned document for results of this study. Ceci Palafox MD DEXA Pamela l Result from Last 3 Months or Most Recently Relevant to Health Maintenance Insurance [facility] [phone] [place] [id number] MEDICARE [place] ONLY MEDICARE PART B HB ONLY MEDICARE PART A HB ONLY [facility] PB ONLY Member Subscriber Plan / Payer (Ef fective 2018-Present) Name:Gracie Casanovan Kai Relation to Subscriber:Self Name:Brittani Casanova Payer ID:Not on file Group ID:NONE Type:Not on file Address: [address] [place], [place] [id number] [place] [address] [place] ONLY Member Subscriber Plan / Payer (Ef fective 2017-Present) Name:Brittani Casanova Relation to Subscriber:Self Name:Brittani Casanova Payer ID:Not on file Group ID:NONE Type:Not on file Address: [id number] [place], [place] [address] [place] [address] [facility] [phone] [place] [address] HC MEDICARE PPS PPS [facility] ONLY Advance Directives Documents on File Type Date Recorded Patient Assisted Living Executive Director Expl anation Healthcare Directive 10/19/2014 9:49 AM [facility] 09/12/2023 Treatment Guidelines 12/06/2020 [facility] 06/14/2016 3:01 PM [facility] - 06/14/2016 Healthcare Directive 11/22/2013 1:[address] atement of Prefecnces [facility] 10/28/2013 9:31 AM [facility] - * DNR (Latest Code Status on File) Date Activated Date Inactivated Comments 09/05/2023 4:09 PM * Full Code Date Activated Date Inactivated Comments 04/25/2020 2:10 PM 04/25/2020 5:28 PM Question Answer Comments Code Status Discussion: Not Discussed * Full Code Date Activated Date Inactivated Comments 03/29/2019 11:25 PM 04/02/2019 6:25 PM Question Answer Comments Code Status Discussion: Not Discussed * Full Code Date Activated Date Inactivated Comments 09/15/2017 6:09 PM 09/21/2017 1:20 PM * Full Code Date Activated Date Inactivated Comments 08/02/2015 12:28 PM 08/02/2015 7:23 PM Care Teams Neurology Tech Relationship Specialty [place] [address] [place] [address] PCP - General Family Practice 04/02/22 [place] [address] [place] [address] Family Practice Registered Nurse 09/12/23
[2024-09-25] MEDS: HYDROmorphone 0.5 mg/0.5 ml inj 0.2 MG IVP (07:39)
--- NOTE | 2024-09-25 07:40 | ED.GENADULT ---
HPI - General Adult General Date Seen: 09/25/24 Chief complaint: Fall/Minor Trauma Stated complaint: fall Source: patient and EMS Mode of arrival: EMS Limitations: no limitations History of Present Illness HPI narrative: Patient is an 84-year-old female resident of the [facility] in [place] who is brought in by EMS after another fall. Apparently she fell one week ago and was on the ground for several hours and refused to be evaluated. Her daughter spoke with her at 9:40 a.m. last evening and is a bit unclear exactly when she fell. She believes that she fell asleep sitting up on her bed and just slid to the ground. She was unable to get up. She is supposed to have a lifeline on but does not like to wear it. She was found and EMS was called around 4:30 a.m.. She is uncertain if she hit her head. There is no loss of bowel or bladder. She was found to be hypoxic with oxygen saturation of 87%. She denies shortness of breath, chest pain, cough. She has history of medical noncompliance but her daughter believes that she is taking her medicines as prescribed. Her granddaughter serves as her SHOE SALESPERSON and apparently someone lays out her medications for her weekly. She is on Coumadin due to atrial fibrillation. She has cognitive impairment but family feels comfortable with her in the independent living portion of the facility. She is brought from [place] to [place] as she refuses to go to a hospital in the [facility]. She initially offer no complaints but is now complaining of pain in her low back from her fall one week ago as well as her left knee from her fall last night. Related Data Home Medications ?Medication ?Instructions ?Recorded ?Confirmed albuterol sulfate 90 mcg/actuation inhalation 09/01/23 aerosol inhaler atorvastatin 10 mg tablet 10 mg PO DAILY 09/01/23 09/01/23 dronedarone 400 mg tablet (Multaq) 200 mg PO BIDWMEAL 09/01/23 09/01/23 furosemide 20 mg tablet 20 mg PO DAILY 09/01/23 09/01/23 gabapentin 300 mg capsule 300 mg PO DAILY 09/01/23 09/01/23 isosorbide mononitrate 30 mg 15 mg PO DAILY 09/01/23 09/01/23 tablet,extended release 24 hr levothyroxine 112 mcg tablet 112 mcg PO DAILY 09/01/23 09/01/23 metoprolol succinate 50 mg 25 mg PO DAILY 09/01/23 09/01/23 tablet,extended release 24 hr warfarin 2 mg tablet 2 mg PO DAILY 09/01/23 09/01/23 Previous Rx's ?Medication ?Instructions ?Recorded spironolactone 25 mg tablet 12.5 mg (1/2 x 25 mg) PO DAILY #15 09/02/23 tabs Allergies Allergy/AdvReac Type Severity Reaction Status Date / Time lisinopril Allergy Unknown Verified 09/25/24 06:19 Review of Systems Narrative: Review of systems is outlined above otherwise noted to be negative. Family feels that she has been compliant with her medications recently. They feel comfortable with her in the independent living portion of the facility. Her granddaughter is her SHOE SALESPERSON and her family checks in on her a couple of times a week. She denies fevers, shortness of breath, cough. [facility] Medical History (Updated 09/10/23 @ 00:02 by Background Daemon) Abnormal echocardiogram ?R93.1 - Abnormal findings on diagnostic imaging of heart and coronary circulation (ICD-10) Chronic anticoagulation ?Z79.01 - nursing home (current) use of anticoagulants (ICD-10) Stage 3 chronic kidney disease ?N18.30 - Chronic kidney disease, stage 3 unspecified (ICD-10) Anxiety ?F41.9 - Anxiety disorder, unspecified (ICD-10) Cognitive impairment ?R41.89 - Other symptoms and signs involving cognitive functions and awareness (ICD-10) Generalized osteoarthritis ?M15.9 - Polyosteoarthritis, unspecified (ICD-10) Lumbar spinal stenosis ?M48.061 - Spinal stenosis, lumbar region without neurogenic claudication (ICD-10) Hyperlipidemia ?E78.5 - Hyperlipidemia, unspecified (ICD-10) Asthma ?J45.909 - Unspecified asthma, uncomplicated (ICD-10) Depression ?F32.A - Depression, unspecified (ICD-10) Chronic, continuous use of opioids ?F11.90 - Opioid use, unspecified, uncomplicated (ICD-10) Chronic back pain ?M54.9 - Dorsalgia, unspecified (ICD-10) ?G89.29 - Other chronic pain (ICD-10) Insomnia ?G47.00 - Insomnia, unspecified (ICD-10) Fibromyalgia ?M79.7 - Fibromyalgia (ICD-10) Sleep apnea ?G47.30 - Sleep apnea, unspecified (ICD-10) Obesity ?E66.9 - Obesity, unspecified (ICD-10) History of stroke ?Z86.73 - Personal history of transient ischemic attack (TIA), and cerebral infarction without residual deficits (ICD-10) Medical non-compliance ?Z91.199 - Patient's noncompliance with other medical treatment and regimen due to unspecified reason (ICD-10) Heart failure with preserved ejection fraction ?I50.30 - Unspecified diastolic (congestive) heart failure (ICD-10) Atrial fibrillation ?I48.91 - Unspecified atrial fibrillation (ICD-10) Hypertension ?I10 - Essential (primary) hypertension (ICD-10) Hypothyroidism ?E03.9 - Hypothyroidism, unspecified (ICD-10) Surgical History (Updated 09/01/23 @ 22:06 by Bartolo Graves MD) History of bilateral knee arthroplasty ?Z96.653 - Presence of artificial knee joint, bilateral (ICD-10) History of hysterectomy ?Z90.710 - Acquired absence of both cervix and uterus (ICD-10) History of surgery on right wrist ?Z98.890 - Other specified postprocedural states (ICD-10) History of arthroplasty of left shoulder ?Z96.612 - Presence of left artificial shoulder joint (ICD-10) History of cataract surgery ?Z98.49 - Cataract extraction status, unspecified eye (ICD-10) History of implantable cardioverter-defibrillator (ICD) placement ?Z95.810 - Presence of automatic (implantable) cardiac defibrillator (ICD-10) Family History (Updated 09/01/23 @ 22:07 by Bartolo Graves MD) Other AAA (abdominal aortic aneurysm) Lung cancer Social History (Updated 09/01/23 @ 22:09 by Bartolo Graves MD) Narrative: she lives in a senior apartment in [place]. 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 She gets meals there but does some of her own cooking. She walks with a walker when she leaves her apartment and walks with a cane inside her apartment. She has a nurse come by weekly and set up her medications. She also has a corrections caseworker that she was visiting with today. She does not smoke. She does not drink alcohol. Her daughter Fatimah is healthcare power of civil rights attorney. Her granddaughter is 1 of her care providers as well. Code status is DNR. What is your current living situation?: I presently have a place to live Problems where you live: no known problems Problems where you live details: no known problems In the past 12 months, utilities in danger of being shut off: no In past 12 months, lack of transportation kept you from medical appts, meetings, work, or getting things needed for daily living: no In the past 12 mos, have been you worried that your food would run out before you had money to buy more?: never true In the past 12 mos, the food you bought just didn't last and you didn't have money to buy more?: never true Smoking Status: Never smoker Do you use any of these nicotine containing products: None Second hand tobacco smoke exposure: No How often do you have a drink containing alcohol: never How often do you have six or more drinks on one occasion: Never AUDIT-C Alcohol total score: 0 Non-prescribed substance use: denies use Caffeine: Yes (Pepsi) How often does anyone, including family, friends and others, physically hurt you: never How often does anyone, including family, friends and others, insult or talk down to you: never How often does anyone, including family, friends and others, threaten you with harm: never How often does anyone, including family, friends and others, scream or curse at you: never service: No Exam Narrative: Exam Narrative: Vitals noted. HEENT: No outward sign of head trauma. Conjunctiva clear. She is hard of hearing. Tympanic membranes are pearly white bilaterally. Posterior pharynx is clear without erythema or exudate. Neck is supple without adenopathy, thyromegaly, carotid bruit. No tenderness of the vertebral spinous processes. Range of motion is full. Lungs: Clear to auscultation in all nick. No wheezes, rales, rhonchi. Heart: Irregularly irregular rate and rhythm with a II/ systolic murmur loudest in the aortic area. Abdomen: Soft and nontender. No guarding, rigidity, rebound. Bowel sounds are normal. No palpable masses. She has some bruising on her back with some mild diffuse tenderness. Nothing localized. He Extremities: No cyanosis or edema. Good distal pulses. Left knee exam is unremarkable. No ligamentous laxity. No effusion. Skin: No abnormalities noted of the exposed skin. Neurologic: Awake, alert, fully oriented. Neurologic exam is nonfocal. Const: Vital Signs, click to edit/add: Vital Signs - 24 hr 09/25/24 06:12 09/25/24 06:33 09/25/24 06:33 Temperature 97.6 F Pulse Rate Pulse Rate [Pulse Oximeter] 76 Respiratory Rate 20 Blood Pressure Blood Pressure [Ri ght Upper Arm] 125/93 H Pulse Oximetry 87 L 97 97 Oxygen Delivery Me thod Room Air Nasal Cannula Oxygen Flow Rate 3 09/25/24 06:59 09/25/24 07:00 09/25/24 07:04 Temperature Pulse Rate 70 70 70 Pulse Rate [Pulse Oximeter] Respiratory Rate 18 20 16 Blood Pressure 112/93 H Blood Pressure [Ri ght Upper Arm] Pulse Oximetry 95 93 96 Oxygen Delivery Me thod Oxygen Flow Rate 09/25/24 07:15 09/25/24 07:21 09/25/24 07:22 Temperature Pulse Rate 67 69 72 Pulse Rate [Pulse Oximeter] Respiratory Rate 16 20 28 H Blood Pressure 109/78 Blood Pressure [Ri ght Upper Arm] Pulse Oximetry 97 97 96 Oxygen Delivery Me thod Oxygen Flow Rate 09/25/24 07:30 09/25/24 07:41 09/25/24 07:45 Temperature Pulse Rate 67 68 68 Pulse Rate [Pulse Oximeter] Respiratory Rate 20 16 18 Blood Pressure 117/85 Blood Pressure [Ri ght Upper Arm] Pulse Oximetry 96 96 97 Oxygen Delivery Me thod Oxygen Flow Rate 09/25/24 08:14 09/25/24 08:15 09/25/24 08:21 Temperature Pulse Rate 63 65 67 Pulse Rate [Pulse Oximeter] Respiratory Rate 16 16 14 Blood Pressure 109/79 Blood Pressure [Ri ght Upper Arm] Pulse Oximetry 96 96 95 Oxygen Delivery Me thod Oxygen Flow Rate 09/25/24 08:30 Temperature Pulse Rate 69 Pulse Rate [Pulse Oximeter] Respiratory Rate 16 Blood Pressure Blood Pressure [Ri ght Upper Arm] Pulse Oximetry 95 Oxygen Delivery Me thod Oxygen Flow Rate Course Course ED Course: Patient is seen and examined. CT of her head and cervical spine are unremarkable. CBC is normal. INR is 2.25. Basic metabolic panel shows a sodium 133 and a potassium of 3.4 and a creatinine of 1.7. Troponin is negative. ProBNP is 4130. TSH is 8.05 but her free T4 is elevated at 2.11. Chest x-ray is unremarkable. X-ray of her left knee shows a normal total knee arthroplasty. No acute fracture. Her care is turned over to Dr. Moreau. Vital Signs Vital signs: Initial Vital Signs Temperature 97.6 F 09/25/24 06:12 Temperature Source Temporal Artery Scan 09/25/24 06:12 Pulse Rate 76 09/25/24 06:12 Pulse Rhythm Regular 09/25/24 06:12 Pulse Strength 3+ Normal 09/25/24 06:12 Respiratory Rate 20 09/25/24 06:12 Blood Pressure 125/93 H 09/25/24 06:12 Blood Pressure Mean 103 09/25/24 06:12 Blood Pressure Position Sitting 09/25/24 06:12 Pulse Oximetry 87 L 09/25/24 06:12 Oxygen Delivery Method Room Air 09/25/24 06:12 Vital Signs Temperature 97.6 F 09/25/24 06:12 Pulse Rate 76 09/25/24 06:12 Respiratory Rate 20 09/25/24 06:12 Blood Pressure 125/93 H 09/25/24 06:12 Pulse Oximetry 87 L 09/25/24 06:12 Oxygen Delivery Method Room Air 09/25/24 06:12 Temperature 97.6 F 09/25/24 06:12 Pulse Rate 69 09/25/24 08:30 Respiratory Rate 16 09/25/24 08:30 Blood Pressure 109/79 09/25/24 08:21 Pulse Oximetry 95 09/25/24 08:30 Oxygen Delivery Method Nasal Cannula 09/25/24 06:33 Oxygen Flow Rate 3 09/25/24 06:33 Medications Administered Medications: Discontinued Medications Generic Name Dose Route Start Last Admin Trade Name Freq PRN Reason Stop Dose Admin Hydromorphone HCl 0.2 mg 09/25/24 07:29 09/25/24 07:39 Hydromorphone 0.5 Mg/0.5 Ml Inj IVP 09/25/24 07:30 0.2 mg ONCE ONE Administration Medical Decision Making Lab Data Labs: Lab Results 09/25/24 09/25/24 09/25/24 Range/Units 07:04 07:49 07:50 WBC 7.15 (4.50-11.00) K/uL RBC 4.57 (4.00-5.20) m/uL Hgb 13.7 (12.0-16.0) gm/dL Hct 42.8 (33.0-51.0) % MCV 94 (80-100) fL MCH 30 (26-34) pg MCHC 32 (32-36) gm/dL RDW Coeff of Angela 14.0 (11.5-15.5) % Plt Count 159 (140-440) K/uL Neut % (Auto) 72.0 (42.0-72.0) % Lymph % (Auto) 17.9 L (20-44) % Eddy % (Auto) 9.1 (0.0-11.0) % Eos % (Auto) 0.4 (0.0-7.0) % Baso % (Auto) 0.3 (0.0-3.0) % Neut # (Auto) 5.15 (1.7-7.0) K/uL Lymph # (Auto) 1.30 (0.90-2.90) K/uL Eddy # (Auto) 0.70 (0.00-0.90) K/UL Eos # (Auto) 0.03 (0.00-0.50) K/uL Baso # (Auto) 0.02 (0.00-0.30) K/uL Abs Immat Gran (auto) 0.02 (0.00-0.30) K/uL Imm/Tot Granulo (auto) 0.3 % INR 2.25 H (0.91-1.10) Sodium 133 L (135-149) mmol/L Potassium 3.4 L (3.6-5.1) mmol/L Chloride 90 L (96-114) mmol/L Carbon Dioxide 32 (20-32) mmol/L Anion Gap 11 (7-15) mEq/L BUN 20 (7-30) mg/dL Creatinine 1.7 H (0.5-1.5) mg/dL Estimated Creat Clear 22.03 Estimated GFR 30 ml/min Glucose 101 (60-115) mg/dL Calcium 9.1 (8.4-10.6) mg/dL Total Creatine Kinase 92 (41-117) U/L Troponin I < 0.01 L (0.01-0.04) ng/mL NT-Pro-B Natriuret Pep 4120 pg/mL TSH 8.050 H (0.270-4.200) uIU/mL Free T4 2.11 H (0.70-1.85) ng/dL Lab Acknowledgement Test Added Test Added 09/25/24 Range/Units 08:00 WBC (4.50-11.00) K/uL RBC (4.00-5.20) m/uL Hgb (12.0-16.0) gm/dL Hct (33.0-51.0) % MCV (80-100) fL MCH (26-34) pg MCHC (32-36) gm/dL RDW Coeff of Angela (11.5-15.5) % Plt Count (140-440) K/uL Neut % (Auto) (42.0-72.0) % Lymph % (Auto) (20-44) % Eddy % (Auto) (0.0-11.0) % Eos % (Auto) (0.0-7.0) % Baso % (Auto) (0.0-3.0) % Neut # (Auto) (1.7-7.0) K/uL Lymph # (Auto) (0.90-2.90) K/uL Eddy # (Auto) (0.00-0.90) K/UL Eos # (Auto) (0.00-0.50) K/uL Baso # (Auto) (0.00-0.30) K/uL Abs Immat Gran (auto) (0.00-0.30) K/uL Imm/Tot Granulo (auto) % INR (0.91-1.10) Sodium (135-149) mmol/L Potassium (3.6-5.1) mmol/L Chloride (96-114) mmol/L Carbon Dioxide (20-32) mmol/L Anion Gap (7-15) mEq/L BUN (7-30) mg/dL Creatinine (0.5-1.5) mg/dL Estimated Creat Clear Estimated GFR ml/min Glucose (60-115) mg/dL Calcium (8.4-10.6) mg/dL Total Creatine Kinase (41-117) U/L Troponin I (0.01-0.04) ng/mL NT-Pro-B Natriuret Pep pg/mL TSH (0.270-4.200) uIU/mL Free T4 (0.70-1.85) ng/dL Lab Acknowledgement Test Added Discharge Plan Discharge Prescriptions: No Action atorvastatin 10 mg tablet 10 mg PO DAILY metoprolol succinate 50 mg tablet extended release 24 hr 25 mg PO DAILY isosorbide mononitrate 30 mg tablet extended release 24 hr 15 mg PO DAILY gabapentin 300 mg capsule 300 mg PO DAILY albuterol sulfate 90 mcg/actuation HFA aerosol inhaler inhalation levothyroxine 112 mcg tablet 112 mcg PO DAILY Multaq 400 mg tablet 200 mg PO BIDWMEAL warfarin 2 mg tablet 2 mg PO DAILY furosemide 20 mg tablet 20 mg PO DAILY spironolactone 25 mg tablet 12.5 mg PO DAILY Qty: 15 0RF Follow Up/Referrals: Angel Lawson MD [Primary Care Provider] -
[2024-09-25 08:05] LABS: Creatine Kinase* 92 U/L (41-117)
[2024-09-25 08:25] LABS: NT Pro B Type NatriureticPept* 4120 pg/mL
[2024-09-25 08:54] LABS: Free T4 Free Thyroxine* 2.11 ng/dL (0.70-1.85)
[2024-09-25 09:03] LABS: Troponin I* < 0.01 ng/mL (0.01-0.04)
[2024-09-25 09:58] LABS: Lab Add On Test New Spec Needed
[2024-09-25] MEDS: LACTATED RINGERS 1000 ML 500 ML IV (10:11)
[2024-09-25 10:18] LABS: HCO3 VBG 36 mmol/L (21-28); PO2 VBG 37.6 mmHG (25-47); pH VBG 7.335 (7.32-7.43)
[2024-09-25 10:20] LABS: Appearance Urine Slightly Cloudy (Clear); Bilirubin Urine 1+ (Negative); Blood Urine 1+ (Negative); Color Urine Orange (Yellow); Glucose Urine Negative (Negative); Ketones Urine Trace (Negative); Leukocyte Esterase Urine Negative (Negative); Nitrite Urine Negative (Negative); Protein Urine 1+ (Negative); pH Urine 5.5 (5.0-8.5)
[2024-09-25 10:22] LABS: PCO2 VBG 68 mmHG (40-50)
[2024-09-25 10:30] LABS: Bacteria Urine Moderate; Mucus Urine Moderate; Squamous Epithelial Cell Urine Moderate (None-Few)
[2024-09-25] MEDS: ALBUTEROL SULFATE 2.5 MG/3 ML VIAL.NEB NEB (10:41)
[2024-09-25 10:52] LABS: PCR FLU A Negative PCR FLU A (Negative); PCR FLU B Negative PCR FLU B (Negative); PCR RSV Negative PCR RSV (Negative); SARS PCR* Negative SARS-CoV-2 (Negative)
[2024-09-25 12:20] LABS: Creatinine* 1.6 mg/dL (0.5-1.5); Est. Creatinine Clearance* 23.41; Estimated Glomerular Filt Rate 32 ml/min
[2024-09-25] MEDS: MORPHINE 4 MG/ML INJ IVP (14:33)
--- NOTE | 2024-09-25 18:27 | P.IMHP_ITS ---
Hospitalist- H&P: HARPREET History of Present Illness Date Seen: 09/25/24 Chief complaint: fall Narrative: Brittani Casanova is a 84 year old female with past medical history of mild cognitive impairment, congestive heart failure, pulmonary hypertension, aortic stenosis who presents with hypoxia and multiple falls the most recent 1 was yesterday night and also she had another 1 last Friday. Patient is a poor historian and we were not able to take more details about these falls. Most of the history was taken from the daughter and the son and law. They mentioned that the patient lives independently and that she has history of shortness of breath upon exertion that has been chronic but they are not sure if it has been progressive and the patient is not able to answer this question. Daughter mentioned that the patient follows up with a cloth examiner who wanted to do a trans esophageal echo to evaluate her mother but her mother if is refusing to do it. At the ED patient was found hypoxic with O2 saturation at 86% mostly on exertion and she was put on oxygen. Her ABGs are showing hypercapnia with pCO2 at 68. BNP was elevated at 4100. Review of Systems Status of ROS: Reports: 6 or more systems reviewed and unremarkable except as noted in History and below [facility] Medical History (Updated 09/25/24 @ 23:41 by Annika Menard MD) Aortic stenosis ?I35.0 - Nonrheumatic aortic (valve) stenosis (ICD-10) Abnormal echocardiogram ?R93.1 - Abnormal findings on diagnostic imaging of heart and coronary circulation (ICD-10) Chronic anticoagulation ?Z79.01 - long term care social worker (current) use of anticoagulants (ICD-10) Stage 3 chronic kidney disease ?N18.30 - Chronic kidney disease, stage 3 unspecified (ICD-10) Anxiety ?F41.9 - Anxiety disorder, unspecified (ICD-10) Cognitive impairment ?R41.89 - Other symptoms and signs involving cognitive functions and awareness (ICD-10) Generalized osteoarthritis ?M15.9 - Polyosteoarthritis, unspecified (ICD-10) Lumbar spinal stenosis ?M48.061 - Spinal stenosis, lumbar region without neurogenic claudication (ICD-10) Hyperlipidemia ?E78.5 - Hyperlipidemia, unspecified (ICD-10) Asthma ?J45.909 - Unspecified asthma, uncomplicated (ICD-10) Depression ?F32.A - Depression, unspecified (ICD-10) Chronic, continuous use of opioids ?F11.90 - Opioid use, unspecified, uncomplicated (ICD-10) Chronic back pain ?M54.9 - Dorsalgia, unspecified (ICD-10) ?G89.29 - Other chronic pain (ICD-10) Insomnia ?G47.00 - Insomnia, unspecified (ICD-10) Fibromyalgia ?M79.7 - Fibromyalgia (ICD-10) Sleep apnea ?G47.30 - Sleep apnea, unspecified (ICD-10) Obesity ?E66.9 - Obesity, unspecified (ICD-10) History of stroke ?Z86.73 - Personal history of transient ischemic attack (TIA), and cerebral infarction without residual deficits (ICD-10) Medical non-compliance ?Z91.199 - Patient's noncompliance with other medical treatment and regimen due to unspecified reason (ICD-10) Heart failure with preserved ejection fraction ?I50.30 - Unspecified diastolic (congestive) heart failure (ICD-10) Atrial fibrillation ?I48.91 - Unspecified atrial fibrillation (ICD-10) Hypertension ?I10 - Essential (primary) hypertension (ICD-10) Hypothyroidism ?E03.9 - Hypothyroidism, unspecified (ICD-10) Surgical History (Updated 09/01/23 @ 22:06 by Bartolo Graves MD) History of bilateral knee arthroplasty ?Z96.653 - Presence of artificial knee joint, bilateral (ICD-10) History of hysterectomy ?Z90.710 - Acquired absence of both cervix and uterus (ICD-10) History of surgery on right wrist ?Z98.890 - Other specified postprocedural states (ICD-10) History of arthroplasty of left shoulder ?Z96.612 - Presence of left artificial shoulder joint (ICD-10) History of cataract surgery ?Z98.49 - Cataract extraction status, unspecified eye (ICD-10) History of implantable cardioverter-defibrillator (ICD) placement ?Z95.810 - Presence of automatic (implantable) cardiac defibrillator (ICD-10) Family History (Updated 09/01/23 @ 22:07 by Bartolo Graves MD) Other AAA (abdominal aortic aneurysm) Lung cancer Social History (Updated 09/01/23 @ 22:09 by Bartolo Graves MD) Narrative: she lives in a senior apartment in [place]. 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 She gets meals there but does some of her own cooking. She walks with a walker when she leaves her apartment and walks with a cane inside her apartment. She has a nurse come by weekly and set up her medications. She also has a pillowcase folder that she was visiting with today. She does not smoke. She does not drink alcohol. Her daughter Fatimah is healthcare power of employment law attorney. Her granddaughter is 1 of her care providers as well. Code status is DNR. What is your current living situation?: I presently have a place to live Problems where you live: no known problems Problems where you live details: no known problems In the past 12 months, utilities in danger of being shut off: no In past 12 months, lack of transportation kept you from medical appts, meetings, work, or getting things needed for daily living: no In the past 12 mos, have been you worried that your food would run out before you had money to buy more?: never true In the past 12 mos, the food you bought just didn't last and you didn't have money to buy more?: never true Highest level of school completed/degree received: high school graduate Smoking Status: Never smoker Do you use any of these nicotine containing products: None Second hand tobacco smoke exposure: No How often do you have a drink containing alcohol: never How often do you have six or more drinks on one occasion: Never AUDIT-C Alcohol total score: 0 Non-prescribed substance use: denies use Caffeine: Yes (Pepsi daily) How often does anyone, including family, friends and others, physically hurt you : never How often does anyone, including family, friends and others, insult or talk down to you: never How often does anyone, including family, friends and others, threaten you with harm: never How often does anyone, including family, friends and others, scream or curse at you: never service: No Meds Home Medications and Allergies Home Medications ?Medication ?Instructions ?Recorded ?Confirmed ?Type albuterol sulfate 90 mcg/actuation 2 puff inhalation Q4H PRN 09/01/23 09/25/24 History aerosol inhaler atorvastatin 10 mg tablet 10 mg PO HS 09/01/23 09/25/24 History dronedarone 400 mg tablet (Multaq) 200 mg PO BIDWMEAL 09/01/23 09/25/24 History furosemide 20 mg tablet 20 mg PO DAILY PRN 09/01/23 09/25/24 History gabapentin 300 mg capsule 300 mg PO HS 09/01/23 09/25/24 History levothyroxine 112 mcg tablet 112 mcg PO DAILY 09/01/23 09/25/24 History metoprolol succinate 50 mg 25 mg PO DAILY 09/01/23 09/25/24 History tablet,extended release 24 hr warfarin 2 mg tablet 2 mg PO SUTUWETHFRSA 09/01/23 09/25/24 History calcium 600 mg (as 1 tab PO BID 09/25/24 09/25/24 History carbonate)-vitamin D3 10 mcg (400 unit) tablet (Calcium with Vitamin D) docusate sodium 100 mg capsule 100 - 300 mg PO DAILY PRN 09/25/24 09/25/24 History fluoxetine 10 mg capsule 10 mg PO DAILY 09/25/24 09/25/24 History fluticasone propionate 230 2 inh inhalation BID 09/25/24 09/25/24 History mcg-salmeterol 21 mcg/actuation HFA inhaler methyl salicylate-menthol topical 1 ea topical TID PRN 09/25/24 09/25/24 History ointment mupirocin 2 % topical ointment 1 applic topical BID PRN 09/25/24 09/25/24 History warfarin 2 mg tablet 3 mg PO MO 09/25/24 09/25/24 History zolpidem 5 mg tablet (Ambien) 5 mg PO HS 09/25/24 09/25/24 History Allergies Allergy/AdvReac Type Severity Reaction Status Date / Time lisinopril Allergy Unknown Verified 09/25/24 06:19 Exam Narrative: Exam Narrative: Physical exam GENERAL: Comfortable, no acute distress. On oxygen nasal cannula HEAD AND NECK: Atraumatic, normocephalic CARDIOVASCULAR: RRR. Normal S1, S2. Positive systolic murmur 4/6. RESPIRATORY: Clear to auscultation B/L. Good air entry B/L. No wheezes or rhonchi. GASTROINTESTINAL: Not distended, not tender to palpation. NEUROLOGY: Alert, awake. Normal speech. PSYCH: Normal mood, normal affect. Const: Vital Signs, click to edit/add: Vital Signs - 24 hr 09/25/24 06:12 09/25/24 06:33 09/25/24 06:33 Temperature 97.6 F Pulse Rate Pulse Rate [Pulse Oximeter] 76 Respiratory Rate 20 Blood Pressure Blood Pressure [Le ft Arm] Blood Pressure [Ri ght Upper Arm] 125/93 H Pulse Oximetry 87 L 97 97 Oxygen Delivery Me thod Room Air Nasal Cannula Oxygen Flow Rate 3 09/25/24 06:59 09/25/24 07:00 09/25/24 07:04 Temperature Pulse Rate 70 70 70 Pulse Rate [Pulse Oximeter] Respiratory Rate 18 20 16 Blood Pressure 112/93 H Blood Pressure [Le ft Arm] Blood Pressure [Ri ght Upper Arm] Pulse Oximetry 95 93 96 Oxygen Delivery Me thod Oxygen Flow Rate 09/25/24 07:15 09/25/24 07:21 09/25/24 07:22 Temperature Pulse Rate 67 69 72 Pulse Rate [Pulse Oximeter] Respiratory Rate 16 20 28 H Blood Pressure 109/78 Blood Pressure [Le ft Arm] Blood Pressure [Ri ght Upper Arm] Pulse Oximetry 97 97 96 Oxygen Delivery Me thod Oxygen Flow Rate 09/25/24 07:30 09/25/24 07:41 09/25/24 07:45 Temperature Pulse Rate 67 68 68 Pulse Rate [Pulse Oximeter] Respiratory Rate 20 16 18 Blood Pressure 117/85 Blood Pressure [Le ft Arm] Blood Pressure [Ri ght Upper Arm] Pulse Oximetry 96 96 97 Oxygen Delivery Me thod Oxygen Flow Rate 09/25/24 08:14 09/25/24 08:15 09/25/24 08:21 Temperature Pulse Rate 63 65 67 Pulse Rate [Pulse Oximeter] Respiratory Rate 16 16 14 Blood Pressure 109/79 Blood Pressure [Le ft Arm] Blood Pressure [Ri ght Upper Arm] Pulse Oximetry 96 96 95 Oxygen Delivery Me thod Oxygen Flow Rate 09/25/24 08:30 09/25/24 08:41 09/25/24 08:45 Temperature Pulse Rate 69 62 67 Pulse Rate [Pulse Oximeter] Respiratory Rate 16 18 13 Blood Pressure 115/82 Blood Pressure [Le ft Arm] Blood Pressure [Ri ght Upper Arm] Pulse Oximetry 95 96 98 Oxygen Delivery Me thod Oxygen Flow Rate 09/25/24 09:00 09/25/24 09:01 09/25/24 09:15 Temperature Pulse Rate 73 69 68 Pulse Rate [Pulse Oximeter] Respiratory Rate 13 16 14 Blood Pressure 119/74 Blood Pressure [Le ft Arm] Blood Pressure [Ri ght Upper Arm] Pulse Oximetry 97 96 98 Oxygen Delivery Me thod Oxygen Flow Rate 09/25/24 09:22 09/25/24 09:48 09/25/24 10:00 Temperature Pulse Rate 76 71 70 Pulse Rate [Pulse Oximeter] Respiratory Rate 16 Blood Pressure 116/83 Blood Pressure [Le ft Arm] Blood Pressure [Ri ght Upper Arm] Pulse Oximetry 93 86 L 98 Oxygen Delivery Me thod Oxygen Flow Rate 09/25/24 10:04 09/25/24 10:15 09/25/24 10:21 Temperature Pulse Rate 65 61 71 Pulse Rate [Pulse Oximeter] Respiratory Rate Blood Pressure 96/80 Blood Pressure [Le ft Arm] Blood Pressure [Ri ght Upper Arm] Pulse Oximetry 98 97 97 Oxygen Delivery Me thod Oxygen Flow Rate 09/25/24 10:30 09/25/24 10:41 09/25/24 10:45 Temperature Pulse Rate 63 71 62 Pulse Rate [Pulse Oximeter] Respiratory Rate Blood Pressure 106/70 Blood Pressure [Le ft Arm] Blood Pressure [Ri ght Upper Arm] Pulse Oximetry 98 97 96 Oxygen Delivery Me thod Oxygen Flow Rate 09/25/24 11:00 09/25/24 11:01 09/25/24 11:15 Temperature Pulse Rate 72 64 70 Pulse Rate [Pulse Oximeter] Respiratory Rate Blood Pressure 121/77 Blood Pressure [Le ft Arm] Blood Pressure [Ri ght Upper Arm] Pulse Oximetry 97 96 93 Oxygen Delivery Me thod Oxygen Flow Rate 09/25/24 11:21 09/25/24 11:30 09/25/24 11:42 Temperature Pulse Rate 72 69 70 Pulse Rate [Pulse Oximeter] Respiratory Rate Blood Pressure 113/67 114/76 Blood Pressure [Le ft Arm] Blood Pressure [Ri ght Upper Arm] Pulse Oximetry 93 95 94 Oxygen Delivery Me thod Oxygen Flow Rate 09/25/24 11:45 09/25/24 12:00 09/25/24 12:01 Temperature Pulse Rate 68 69 70 Pulse Rate [Pulse Oximeter] Respiratory Rate Blood Pressure 122/84 Blood Pressure [Le ft Arm] Blood Pressure [Ri ght Upper Arm] Pulse Oximetry 94 96 94 Oxygen Delivery Me thod Oxygen Flow Rate 09/25/24 12:15 09/25/24 12:21 09/25/24 12:30 Temperature Pulse Rate 69 69 67 Pulse Rate [Pulse Oximeter] Respiratory Rate Blood Pressure 115/76 Blood Pressure [Le ft Arm] Blood Pressure [Ri ght Upper Arm] Pulse Oximetry 99 97 97 Oxygen Delivery Me thod Oxygen Flow Rate 09/25/24 12:42 09/25/24 12:45 09/25/24 13:56 Temperature 97.6 F Pulse Rate 73 75 Pulse Rate [Pulse Oximeter] 70 Respiratory Rate 18 Blood Pressure 96/60 Blood Pressure [Le ft Arm] Blood Pressure [Ri ght Upper Arm] 110/90 H Pulse Oximetry 98 96 95 Oxygen Delivery Me thod Room Air Oxygen Flow Rate 2 09/25/24 16:47 Temperature 97.4 F L Pulse Rate Pulse Rate [Pulse Oximeter] 69 Respiratory Rate 20 Blood Pressure Blood Pressure [Le ft Arm] 131/78 Blood Pressure [Ri ght Upper Arm] Pulse Oximetry 95 Oxygen Delivery Me thod Nasal Cannula Oxygen Flow Rate 2 Hospitalist - H&P: Result Labs Labs: Short CBC 09/25/24 Range/Units 07:04 WBC 7.15 (4.50-11.00) K/uL Hgb 13.7 (12.0-16.0) gm/dL Hct 42.8 (33.0-51.0) % Plt Count 159 (140-440) K/uL BMP 09/25/24 09/25/24 07:04 11:52 Sodium 133 L Potassium 3.4 L Chloride 90 L Carbon Dioxide 32 BUN 20 Creatinine 1.7 H 1.6 H Glucose 101 Calcium 9.1 Cardiac Enzymes 09/25/24 Range/Units 07:04 Total Creatine Kinase 92 (41-117) U/L Troponin I < 0.01 L (0.01-0.04) ng/mL Urine 09/25/24 Range/Units 09:55 Urine Color [place] A (Yellow) Urine Appearance Slightly Cloudy A (Clear) Urine pH 5.5 (5.0-8.5) Ur Specific [place] 1.020 (1.000-1.030) Urine Protein 1+ A (Negative) Urine Glucose (UA) Negative (Negative) ECG Attestation: I personally reviewed and interpreted this ECG as follows: ECG interpretation date: 09/25/24 Interpretation: Atrial fibrillation With controlled heart rate. Left axis deviation, no ischemic changes Imaging CT scan - chest: Radiologist's impression: INDICATION: SOB. TECHNIQUE: CT chest pulmonary angiogram acquired with IV contrast. 95 mL IV Isovue 370. COMPARISON: Same day chest radiograph. FINDINGS: There is no acute pulmonary embolism. The main pulmonary artery is dilated measuring 4.2 cm in diameter. There is reflux of contrast into the IVC suggestive of right heart dysfunction. Normal caliber thoracic aorta. Moderate cardiomegaly. Pacemaker leads in the right atrial appendage and right ventricular apex. There is extensive streak artifact from a left chest wall pacemaker. Within this limitation there is no thoracic lymphadenopathy. There are multiple small collateral vessels in the left upper anterior chest wall/breast suggesting chronic venous obstruction likely at the axillary or subclavian level. The venous structures are not evaluated on this exam as they are not opacified by contrast and obscured by artifact from the pacemaker device. Cholelithiasis. Small hiatal hernia. Degenerative changes in the spine. No acute osseous abnormality. Small right and trace left pleural effusion. There are a few scattered calcified and noncalcified pulmonary micro nodules measuring up to 2 mm. No suspicious pulmonary nodule. No consolidation or pneumothorax. IMPRESSION: 1. No acute pulmonary embolism. 2. Cardiomegaly and small right and trace left pleural effusions. No evidence of pulmonary edema or infection. 3. Left upper anterior chest wall collateral vessels suggests chronic venous obstruction at the level of the axillary or subclavian vein. 4. Enlarged main pulmonary artery which is seen with pulmonary arterial hypertension. Please note that all CT scans at this facility use dose modulation, iterative reconstruction, and/or weight-based dosing when appropriate to reduce radiation dose to as low as reasonably achievable. Dictated by Brittnee Sommer MD @ 09/25/2024 2:17:48 PM Assessment and Plan Assessment and plan (1) Acute on chronic respiratory failure with hypercapnia: Problem comment: VBG is showing normal pH and an elevated pCO2 at 68, patient appears to be in compensation as her bicarb is elevated at 32 Patient has history of chronic shortness of breath especially on exertion This could be likely secondary to progression of her severe pulmonary hypertension and aortic stenosis We will be careful with diuresis so as not to goes reduction in her preload Status: Acute (2) Pulmonary hypertension: Problem comment: Severe pulmonary hypertension as per her last echo in August 2023 a year ago Her cloth examiner wants a transesophageal echo but the patient is refusing Patient will need follow-up with her cloth examiner as an outpatient for further evaluation Status: Acute (3) CASEY (acute kidney injury): Problem comment: Patient got 500 mL IV fluids at the ED Will repeat her kidney function in the morning Status: Acute (4) Aortic stenosis: Problem comment: 09/02/23 moderate stenosis Status: Acute (5) Heart failure with preserved ejection fraction: Problem comment: Follows with a cloth examiner outpatient Her physician took her of the low-dose of furosemide and kept her on spironolactone, likely secondary to not being fluid overloaded and most importantly to keep good at fluid preload to prevent worsening symptoms with aortic stenosis Status: Acute (6) Atrial fibrillation: Problem comment: status post ablation. Pacemaker. Antiarrhythmic. Warfarin. Status: Acute (7) Chronic anticoagulation: Problem comment: for atrial fibrillation On warfarin Pharmacy consult Status: Chronic (8) Medical non-compliance: Problem comment: does not take diuretics as prescribed and does not follow a low-sodium diet Status: Acute (9) Cognitive impairment: Status: Chronic (10) Multiple falls: Status: Acute Total Time Spent Total Time Spent: Time spent: Today I spent 75 minutes seeing the patient, discussing the patient with ER staff, reviewing Expanse and EPIC notes/diagnostics, discussing the care plan with our care time that includes social work, PT/OT, pharmacy, RT, custodial and documenting my impressions and plan in the medical record.
--- NOTE | 2024-09-25 19:29 | PC.NURSE ---
Admission-- Pleasant and cooperative, alert and oriented but forgetful patient was admitted to med-surg via wheelchair from ED. VSS and pt is afebrile. SPO2 maintained >90% at rest on 1L per n.c. Pt becomes very SOB with exertion. Patient c/o pain in back, bottom and left leg and was given Tylenol PRN. LS clear but diminished. Telemetry is paced. Pronounced murmur. She denied nausea and stated a BM yesterday. Soft ball sized purple bruise noted to center of back. She was up to the BR with assist of 1, belt and walker and tolerated it fair. Report to LIN Peter
[2024-09-25] MEDS: ACETAMINOPHEN 325 MG TABLET 975 MG PO (19:33)
[2024-09-25] MEDS: WARFARIN 2 MG TABLET PO (19:33)
[2024-09-25] MEDS: ZOLPIDEM 5 MG TABLET PO (22:00)
[2024-09-25] MEDS: ATORVASTATIN CALCIUM 10 MG TABLET PO (22:00)
[2024-09-25] MEDS: SODIUM CHLORIDE 0.9 % (FLUSH) 10 ML SYRINGE 5 ML IVF (22:01)
[2024-09-25] MEDS: GABAPENTIN 300 MG CAPSULE PO (22:01)
[2024-09-26] VITALS (20 sets, daily range): BP systolic 103–119; BP diastolic 59–80; PULSE 66–73; RESP 18–22; TEMP 36.1–36.6; O2SAT 83–98
[2024-09-26 01:45] LABS: Magnesium* 1.6 mg/dL (1.5-2.6); Potassium* 3.5 mmol/L (3.6-5.1)
--- NOTE | 2024-09-26 02:45 | P.CCN_ITS ---
Subjective Subjective Interval history: Contacted by nursing that patient had a wide-complex tachycardia. Patient was reported to be asymptomatic vitals remained stable. It was caught on the monitor. EKG was performed but resolved prior. Patient remained asymptomatic. Assessment and Plan Assessment and plan (1) Wide-complex tachycardia: Status: Acute Plan Twelve-lead EKG was reviewed rhythm strips were reviewed. This showed wide- complex tachycardia etiology unclear potassium and magnesium were ordered within normal limits wide-complex tachycardia?etiology unclear. Patient asymptomatic continue to monitor on remote monitor potassium magnesium within normal limits. If recurrent consider beta-andi. Will continue to monitor.
[2024-09-26 06:17] LABS: Hemoglobin* 11.8 gm/dL (12.0-16.0); Mean Corpuscular HGB Conc 32 gm/dL (32-36); Mean Corpuscular Hemoglobin 30 pg (26-34); Mean Corpuscular Volume 95 fL (80-100); Platelet Count* 127 K/uL (140-440); White Blood Count* 4.05 K/uL (4.50-11.00)
[2024-09-26 06:22] LABS: Slide Review Reflex No
[2024-09-26] MEDS: ACETAMINOPHEN 325 MG TABLET 975 MG PO (06:24)
[2024-09-26] MEDS: LEVOTHYROXINE 112 MCG TABLET PO (06:25)
[2024-09-26 06:31] LABS: Chloride* 92 mmol/L (96-114); Sodium* 133 mmol/L (135-149)
[2024-09-26 06:32] LABS: Potassium* 3.2 mmol/L (3.6-5.1)
[2024-09-26 06:34] LABS: Blood Urea Nitrogen* 17 mg/dL (7-30); Creatinine* 1.3 mg/dL (0.5-1.5); Est. Creatinine Clearance* 28.81; Estimated Glomerular Filt Rate 41 ml/min
[2024-09-26 06:35] LABS: Anion Gap 6 mEq/L (7-15); Calcium* 8.6 mg/dL (8.4-10.6); Carbon Dioxide* 35 mmol/L (20-32); Glucose* 73 mg/dL (60-115); Magnesium* 2.3 mg/dL (1.5-2.6)
[2024-09-26 06:39] LABS: INR 2.43 (0.91-1.10); Prothrombin Time 27.5 Seconds
[2024-09-26] MEDS: ALBUTEROL INHALER 2 PUFF IH ×4 (09:29→20:41)
[2024-09-26] MEDS: POTASSIUM BICARB 25 MEQ EFFERVESCENT TAB PO ×2 (09:36→18:06)
[2024-09-26] MEDS: FLUOXETINE HCL 10 MG CAPSULE PO (09:37)
[2024-09-26] MEDS: BUDESONIDE 0.5 MG/2ML NEB NEB ×2 (09:37→20:41)
[2024-09-26] MEDS: DOCUSATE SODIUM 100 MG CAPSULE PO (09:39)
[2024-09-26] MEDS: HYDROCODONE-ACETAMIN 5-325 MG 1 TAB PO (15:18)
[2024-09-26] MEDS: SODIUM CHLORIDE 0.9 % (FLUSH) 10 ML SYRINGE 5 ML IVF ×2 (15:19→20:41)
--- NOTE | 2024-09-26 16:44 | PM.IMPN1 ---
Progress Note: A&P Assessment and plan (1) Multiple falls: Problem details: - 2 recent falls at home of unclear circumstances. Although there is no evidence of syncope, patient does have pacemaker and on telemetry overnight, some pacer spikes seem appropriate, others appear to be happening after the QRS wave in the refractory period. Will request pacer interrogation. - will have patient work with PT and OT - discussed home safety with the patient's daughter and son-in-law, and they are going to help get a wrist life alert that she can wear since the necklace is not working with her cat, and they are going to consider home web cams for increased supervision Status: Acute (2) Acute on chronic respiratory failure with hypercapnia: Problem details: VBG is showing normal pH and an elevated pCO2 at 68, patient appears to be in compensation as her bicarb is elevated at 32 Patient has history of chronic shortness of breath especially on exertion This could be likely secondary to progression of her severe pulmonary hypertension and aortic stenosis We will be careful with diuresis so as not to goes reduction in her preload - 3/2 continues to require some oxygen, does have history of pulmonary hypertension which I suspect is contributing to this need. Status: Acute (3) Pulmonary hypertension: Problem details: Severe pulmonary hypertension as per her last echo in August 2023 a year ago Her press clippings cutter and paster wants a transesophageal echo but the patient is refusing Patient will need follow-up with her press clippings cutter and paster as an outpatient for further evaluation Status: Acute (4) CASEY (acute kidney injury): Problem details: Patient got 500 mL IV fluids at the ED Will repeat her kidney function in the morning - 09/26 creatinine has improved Status: Acute (5) Aortic stenosis: Problem details: 09/02/23 moderate stenosis Status: Chronic (6) Heart failure with preserved ejection fraction: Problem details: Follows with a press clippings cutter and paster outpatient Her physician took her of the low-dose of furosemide and kept her on spironolactone, likely secondary to not being fluid overloaded and most importantly to keep good at fluid preload to prevent worsening symptoms with aortic stenosis Status: Chronic (7) Atrial fibrillation: Problem details: status post ablation. Pacemaker. Antiarrhythmic. Warfarin. INR therapeutic. Status: Chronic (8) Chronic anticoagulation: Problem details: for atrial fibrillation On warfarin Pharmacy consult Status: Chronic (9) Medical non-compliance: Problem details: does not take diuretics as prescribed and does not follow a low-sodium diet Status: Acute (10) Cognitive impairment: Status: Chronic (11) Hypokalemia: Problem details: - suspect due to diuretic use, replace orally, recheck in the morning Status: Acute Time Spent With Patient Total time spent: Today I spent 60 minutes seeing the patient, discussing care with the patient and her family, reviewing [facility] and EPIC notes/diagnostics/labs, discussing the care plan with our care team that includes social work, PT/OT, pharmacy, RT, correction and documenting my impressions and plan in the medical record. Subjective Time Seen by Provider: 09:49 Date Seen: 09/26/24 Interval history: Brittani's daughter, Jazmín, and son-in-law, Allan, are in the room with her today. Brittani is hoping to go home and really does not want anything done. When I spoke with her, she is very hard of hearing and so her daughter repeated what I said to try to help the patient understand. We discussed need for oxygen, pulmonary hypertension, congestive heart failure, aortic stenosis, need for WIN, multiple falls, safety at home, comfort focus treatment, hospice. Patient does not want to think about hospice at this time, but she also does not want aggressive interventions. Her daughter was quite tearful the entire time and seem to vacillate back and forth between wanting her mom to agree to various studies or treatments and honoring her wishes. Her daughter brought in a pulsed from last year that notes that done wanted only comfort focus treatment with no hospitalization last year and is DNR DNI. She said that somewhere at home they have paperwork for power of regulatory attorney, but she has not been able to find it. Brittani told her daughter several times that she is at peace with what God has planned for her and does not want to do a lot of aggressive interventions and really just wants to be comfortable at home. We discussed quality of life and safety at home. Brittani has a Life Alert necklace that she does not wear because her CT plays with it. They have attempted to get it changed to a bracelet, but the person who was supposed did do that never showed up. They were discussing ways in which they could just turned into a bracelet themselves as well as potentially setting up web cams to monitor brittani so that if she fell and was unable to get up, they would know about it right away. Exam Narrative: Exam Narrative: General: No acute distress. Very hard of hearing. Awake, alert, oriented. No pallor. No jaundice. Oropharynx: Clear. Mucous membranes moist. Cardiovascular: Regular rate and rhythm. Grade 3/6 systolic murmur loudest at the right upper sternal border. Respiratory: Clear to auscultation bilaterally. No wheezes or crackles. Abdomen: Bowel sounds present. Soft, nondistended, nontender. Extremities: No lower extremity edema. Const: Vital Signs, click to edit/add: Vital Signs - 24 hr 09/25/24 16:47 09/25/24 18:23 09/25/24 18:53 Temperature 97.4 F L Pulse Rate Pulse Rate [Pulse Oximeter] 69 Respiratory Rate 20 18 Blood Pressure [Le ft Arm] 131/78 Pulse Oximetry 95 91 98 Oxygen Delivery Me thod Nasal Cannula Nasal Cannula Oxygen Flow Rate 2 1 09/25/24 18:54 09/25/24 20:30 09/25/24 23:00 Temperature 97.8 F Pulse Rate 70 67 Pulse Rate [Pulse Oximeter] 65 Respiratory Rate 20 Blood Pressure [Le ft Arm] 96/51 L Pulse Oximetry 92 Oxygen Delivery Me thod Nasal Cannula Oxygen Flow Rate 2 09/25/24 23:00 09/26/24 02:54 09/26/24 06:10 Temperature 97.8 F 97.8 F Pulse Rate 66 Pulse Rate [Pulse Oximeter] 65 73 Respiratory Rate 20 20 Blood Pressure [Le ft Arm] 119/80 113/59 L Pulse Oximetry 92 Oxygen Delivery Me thod Nasal Cannula Oxygen Flow Rate 2 09/26/24 09:03 09/26/24 10:00 09/26/24 10:01 Temperature 97.4 F L Pulse Rate 70 Pulse Rate [Pulse Oximeter] 70 Respiratory Rate 18 Blood Pressure [Le ft Arm] 103/59 L Pulse Oximetry 95 95 Oxygen Delivery Me thod Nasal Cannula Oxygen Flow Rate 2 09/26/24 10:02 09/26/24 10:23 Temperature Pulse Rate 70 Pulse Rate [Pulse Oximeter] Respiratory Rate Blood Pressure [Le ft Arm] Pulse Oximetry 95 Oxygen Delivery Me thod Oxygen Flow Rate Labs Labs: Laboratory Results - last 24 hr 09/26/24 09/26/24 01:35 06:01 WBC 4.05 L RBC 3.90 L Hgb 11.8 L Hct 37.0 MCV 95 MCH 30 MCHC 32 Plt Count 127 L INR 2.43 H Sodium 133 L Potassium 3.5 L 3.2 L Chloride 92 L Carbon Dioxide 35 H Anion Gap 6 L BUN 17 Creatinine 1.3 Estimated Creat Clear 28.81 Estimated GFR 41 Glucose 73 Calcium 8.6 Magnesium 1.6 2.3
[2024-09-26] MEDS: WARFARIN 2 MG TABLET PO (18:05)
--- NOTE | 2024-09-26 20:04 | PC.NURSE ---
Held B/P Med-see chart for AM B/P. Dr. Zepeda aware. Up with walker, tolerated well. A&Ox3. Reports remembering that she may have taken two sleeping pills the night she fell. Noted large bruised area on upper back r/t fall. Discussions with MD/family about possibly transitioning to comfort/palliative care. Daughter stated MD mentioned hospice, had questions about how that works. Patient states, No more tests. Daughter and patient tearful, family supportive. Pain is mild and mostly with movement in back, left shoulder, left knee. [place] this afternoon with relief. Encouraged po intake, supplement offered. Did take second dose of potassium in evening per patient choice.
[2024-09-26] MEDS: GABAPENTIN 300 MG CAPSULE PO (20:41)
[2024-09-26] MEDS: ATORVASTATIN CALCIUM 10 MG TABLET PO (20:41)
[2024-09-26] MEDS: ZOLPIDEM 5 MG TABLET PO (20:41)
[2024-09-27] VITALS (9 sets, daily range): BP systolic 89–119; BP diastolic 48–76; PULSE 69–72; RESP 14–22; TEMP 36.5–36.7; O2SAT 90–95
[2024-09-27] MEDS: HYDROCODONE-ACETAMIN 5-325 MG 1 TAB PO ×2 (03:33→09:06)
[2024-09-27] MEDS: LEVOTHYROXINE 112 MCG TABLET PO (06:15)
[2024-09-27] MEDS: ACETAMINOPHEN 325 MG TABLET 975 MG PO ×2 (06:18→13:58)
[2024-09-27 06:33] LABS: Basophils Percent Auto 0.2 % (0.0-3.0); Eosinophils Percent Auto 2.1 % (0.0-7.0); Hematocrit 36.4 % (33.0-51.0); Hemoglobin* 11.7 gm/dL (12.0-16.0); Immature Granulocytes Pct Auto 0.2 %; Lymphocytes Percent Auto 29.9 % (20-44); Mean Corpuscular HGB Conc 32 gm/dL (32-36); Mean Corpuscular Hemoglobin 30 pg (26-34); Mean Corpuscular Volume 95 fL (80-100); Monocytes Percent Auto 11.3 % (0.0-11.0); Neutrophils Percent Auto 56.3 % (42.0-72.0); Platelet Count* 119 K/uL (140-440); Red Blood Count 3.85 m/uL (4.00-5.20); White Blood Count* 4.32 K/uL (4.50-11.00)
[2024-09-27 06:49] LABS: Slide Review Reflex No
--- NOTE | 2024-09-27 06:49 | PC.NURSE ---
End of shift summary: Pt has been A&O, afebrile and VSS with exception to ongoing O2 needs. She started the shift on RA but started dipping down to 84-85% so she was placed on 1L NC and remained in the 90s. PIV in right FA SL and C/D/I. She is Ax1 with 2ww and gait belt for transfers. Reported back pain in the middle of the night so she received PRN [place] once @ 0330 and repositioned to her right side. PRN Tylenol given @ 0620. TELE read SR w/ 1st degree block and BBB. She was continent of urine overnight, no BM.?
[2024-09-27 06:50] LABS: Chloride* 92 mmol/L (96-114); Sodium* 132 mmol/L (135-149)
[2024-09-27 06:51] LABS: Potassium* 3.6 mmol/L (3.6-5.1)
[2024-09-27 06:53] LABS: INR 2.39 (0.91-1.10); Prothrombin Time 27.2 Seconds
[2024-09-27 06:54] LABS: Anion Gap 6 mEq/L (7-15); Blood Urea Nitrogen* 16 mg/dL (7-30); Calcium* 8.7 mg/dL (8.4-10.6); Carbon Dioxide* 34 mmol/L (20-32); Creatinine* 1.2 mg/dL (0.5-1.5); Est. Creatinine Clearance* 31.21; Estimated Glomerular Filt Rate 45 ml/min; Glucose* 72 mg/dL (60-115)
[2024-09-27] MEDS: METOPROLOL SUCCINATE (XL) 50 MG TAB 25 MG PO (08:45)
[2024-09-27] MEDS: FLUOXETINE HCL 10 MG CAPSULE PO (08:47)
[2024-09-27] MEDS: ALBUTEROL INHALER 2 PUFF IH ×2 (08:47→13:59)
[2024-09-27] MEDS: BUDESONIDE 0.5 MG/2ML NEB NEB (08:48)
[2024-09-27] MEDS: SODIUM CHLORIDE 0.9 % (FLUSH) 10 ML SYRINGE 5 ML IVF (08:50)
--- NOTE | 2024-09-27 13:50 | PM.DS1 ---
DS: Providers Provider Time Seen by Provider: 09:45 Date Seen: 09/27/24 Date of admission: 09/27/24 09:09 Primary care physician: Angel Lawson MD Admitting Clinician: Alyssa Zepeda MD Consults: 09/25/24 18:33 Consult to Occupational Therapy [CONS] Routine Comment: Reason(s) for OT Consult:: Evaluate and Treat Any Restrictions?:: No Restrictions Consult to Physical Therapy [CONS] Routine Comment: Reason(s) for PT Consult:: Evaluate and Treat Any Restrictions?:: No Restrictions Consult to Respiratory Therapy [CONS] Routine Comment: Reason(s) for RT Consult:: Consult Comment: Patient presented with hypoxia, follow-up oxygen requirements at rest and on exertion Consult to Manager Imaging [CONS] Routine Comment: Reason for Consult:: Discharge Planning Needs Attending Physician on discharge: Alyssa Zepeda MD Date of Discharge: 09/27/24 DS: Diagnosis Discharge Diagnosis (1) Multiple falls: Status: Acute Problem details: - 2 recent falls at home of unclear circumstances. Although there is no evidence of syncope, patient does have pacemaker and on telemetry overnight, some pacer spikes seem appropriate, others appear to be happening after the QRS wave in the refractory period. Will request pacer interrogation. - will have patient work with PT and OT - discussed home safety with the patient's daughter and son-in-law, and they are going to help get a wrist life alert that she can wear since the necklace is not working with her cat, and they are going to consider home web cams for increased supervision. They are also going to look into increasing services where she is at; utilizing assisted living option. I will also order PT home safety eval (2) Acute on chronic respiratory failure with hypercapnia: Status: Resolved Problem details: VBG is showing normal pH and an elevated pCO2 at 68, patient appears to be in compensation as her bicarb is elevated at 32 Patient has history of chronic shortness of breath especially on exertion This could be likely secondary to progression of her severe pulmonary hypertension and aortic stenosis We will be careful with diuresis so as not to goes reduction in her preload - 3/2 continues to require some oxygen, does have history of pulmonary hypertension which I suspect is contributing to this need. - 3/3 able to d/c off oxygen - recommend follow-up with Cardiology, may be also pulmonology for severe pulmonary hypertension (3) Pulmonary hypertension: Status: Acute Problem details: Severe pulmonary hypertension as per her last echo in August 2023 a year ago and again 09/27/2024 Her slunk skin curer wants a transesophageal echo but the patient is refusing Patient will need follow-up with her slunk skin curer as an outpatient for further evaluation (4) CASEY (acute kidney injury): Status: Resolved Problem details: Patient got 500 mL IV fluids at the ED Will repeat her kidney function in the morning - 09/26 creatinine has improved (5) Aortic stenosis: Status: Chronic Problem details: 09/27/24 moderate-severe stenosis (6) Heart failure with preserved ejection fraction: Status: Chronic Problem details: Follows with a slunk skin curer outpatient Her physician took her of the low-dose of furosemide and kept her on spironolactone, likely secondary to not being fluid overloaded and most importantly to keep good at fluid preload to prevent worsening symptoms with aortic stenosis (7) Atrial fibrillation: Status: Chronic Problem details: status post ablation. Pacemaker. Antiarrhythmic. Warfarin. INR therapeutic. (8) Medical non-compliance: Status: Acute Problem details: does not take diuretics as prescribed and does not follow a low-sodium diet (9) Cognitive impairment: Status: Chronic (10) Hypokalemia: Status: Resolved Problem details: - suspect due to diuretic use, replace orally, recheck in the morning (11) Mitral stenosis: Status: Acute Problem details: 09/27/24 There is MAC with calcified MV leaflets, moderate to severe stenosis mg 8 mm Hg at HR approximately 70 beats per minute, mild regurgitation. Mild to moderate tricuspid regurgitation. (12) Abnormal echocardiogram: Status: Acute Problem details: 09/27/2024 echocardiogram: Normal LV size, normal wall thickness, normal global systolic function with an estimated EF of 55-60%. Right ventricular cavity size is moderately enlarged, global systolic RV function is moderately reduced. IVS Flattening consistent with RV pressure overload. Mildly enlarged left atrium. The aortic valve is sclerotic and calcified. Moderate to severe stenosis and trivial regurgitation. The aortic valve peak velocity is 3.8 m/sec, the peak gradient is 57 mm Hg and the median gradient is 32 mm Hg. Aortic valve area is 0.72 cm2 with a dimensionless index of 0.18. The stroke volume index is 36.6 mL/m2. There is MAC with calcified MV leaflets, moderate to severe stenosis mg 8 mm Hg at HR approximately 70 beats per minute, mild regurgitation. Mild to moderate tricuspid regurgitation. Severely increased estimated pulmonary pressures by tricuspid regurgitation velocity and right atrial pressure (50 mm Hg plus RAP). The inferior vena cava is not well visualized, respiratory size variation not well visualized. 09/02/23 1. Normal left ventricular size, mildly increased wall thickness, normal global systolic function, calculated EF of 62 %. 2. Right ventricular cavity size is mildly enlarged, global systolic RV function is normal. 3. Mildly enlarged left atrium. 4. The aortic valve is calcified, moderate stenosis and mild regurgitation. The aortic valve peak velocity is 2.7 m/s, the peak gradient is 29 mmHg, and the mean gradient is 16 mmHg. The aortic valve area is 1.13 cm?? with a dimensionless index of 0.30. The stroke volume index is 36.9 ml/m??. 5. The mitral valve is severe mitral annular calcification with calcification extending to the subvalvular apparatus, mild mitral regurgitation. 6. The peak and mean transmitral gradients are 11.7 and 4.5 mmHg (heart rate 71bpm). By CE, the MVA (MV VTI = 48.4cm) = 1.54cm2. Overall, there is moderate-severe mitral stenosis. Suggest clinical correlation and WIN for further evaluation. 7. Tricuspid valve is normal. 8. Severely increased estimated pulmonary pressures by tricuspid regurgitation velocity and right atrial pressure (70 mmHg plus RAP). 9. No pericardial effusion. (13) Chronic anticoagulation: Status: Chronic Problem details: for atrial fibrillation On warfarin INR within goal, recheck at clinic later this week DS: Summary Hospital Course Hospital Course: Per H&P: Brittani Casanova is a 84 year old female with past medical history of mild cognitive impairment, congestive heart failure, pulmonary hypertension, aortic stenosis who presents with hypoxia and multiple falls the most recent 1 was yesterday night and also she had another 1 last Friday. Patient is a poor historian and we were not able to take more details about these falls. Most of the history was taken from the daughter and the son and law. They mentioned that the patient lives independently and that she has history of shortness of breath upon exertion that has been chronic but they are not sure if it has been progressive and the patient is not able to answer this question. Daughter mentioned that the patient follows up with a slunk skin curer who wanted to do a trans esophageal echo to evaluate her mother but her mother if is refusing to do it. At the ED patient was found hypoxic with O2 saturation at 86% mostly on exertion and she was put on oxygen. Her ABGs are showing hypercapnia with pCO2 at 68. BNP was elevated at 4100. See diagnoses above for details. Brittani was evaluated by PT and OT. Patient's daughter, son-in-law, and other family were present for parts of her hospital stay and discussion. Patient at first wanted no intervention. Family expressed concern, but desire to support and honor Brittani's wishes. Today Brittani desired some work up and agreed to outpatient cardiology f/u. She is discharged home with PT home safety eval. Transthoracic ECHO was completed during this hospital stay. Cardiac telemetry was monitored during this hospital stay. I made an attempt to have her pacemaker interrogated, however we called the clinic where she has it interrogated, they declined to do so while she was an inpatient. Patient has a pacer interrogation scheduled for 10/05/2024. I asked her daughter to move that up if possible. Patient and her family were agreeable with her going home today to follow-up for pacer interrogation and Cardiology appointment in the near future. Also follow-up with her primary care provider soon. Time Spent with Patient Time attestation: Total time spent providing and/or coordinating discharge services: Today I spent 50 minutes discharging this patient, which included discussion with the patient and her family, reviewing Expanse and EPIC notes/diagnostics/labs, discussing the care plan with our care team that includes social work, PT/OT, pharmacy, RT, long term and documenting my impressions and plan in the medical record. Exam Narrative: Exam Narrative: General: No acute distress. Very hard of hearing. Awake, alert, oriented. No pallor. No jaundice. Oropharynx: Clear. Mucous membranes moist. Cardiovascular: Regular rate and rhythm. Grade 3/6 systolic murmur loudest at the right upper sternal border. Respiratory: Clear to auscultation bilaterally. No wheezes or crackles. Abdomen: Bowel sounds present. Soft, nondistended, nontender. Extremities: No lower extremity edema. Const: Vital Signs, click to edit/add: Vital Signs - 24 hr 09/26/24 15:09/26/24 15:00 09/26/24 15:15 Temperature 97.4 F L Pulse Rate 73 Pulse Rate [Pulse Oximeter] 71 71 Respiratory Rate 20 20 Blood Pressure [Le ft Arm] 107/61 Blood Pressure [Le ft Forearm] Blood Pressure [Ri ght Arm] Pulse Oximetry 95 Oxygen Delivery Me thod Nasal Cannula Oxygen Flow Rate 2 09/26/24 17:00 09/26/24 19:00 09/26/24 19:30 Temperature 97.8 F Pulse Rate Pulse Rate [Pulse Oximeter] 70 Respiratory Rate 22 Blood Pressure [Le ft Arm] 119/80 Blood Pressure [Le ft Forearm] Blood Pressure [Ri ght Arm] Pulse Oximetry 98 93 85 L Oxygen Delivery Me thod Nasal Cannula Room Air Room Air Oxygen Flow Rate 2 09/26/24 19:52 09/26/24 20:00 09/26/24 23:00 Temperature Pulse Rate 73 Pulse Rate [Pulse Oximeter] 69 Respiratory Rate 20 Blood Pressure [Le ft Arm] Blood Pressure [Le ft Forearm] Blood Pressure [Ri ght Arm] Pulse Oximetry 95 Oxygen Delivery Me thod Nasal Cannula Oxygen Flow Rate 1 09/26/24 23:00 09/26/24 23:05 09/27/24 00:43 Temperature Pulse Rate 69 Pulse Rate [Pulse Oximeter] 69 Respiratory Rate 20 20 Blood Pressure [Le ft Arm] Blood Pressure [Le ft Forearm] Blood Pressure [Ri ght Arm] Pulse Oximetry 95 93 Oxygen Delivery Me thod Nasal Cannula Nasal Cannula Oxygen Flow Rate 1 1 09/27/24 03:30 09/27/24 04:00 09/27/24 08:34 Temperature 97.9 F 98.1 F Pulse Rate Pulse Rate [Pulse Oximeter] 71 72 Respiratory Rate 22 14 Blood Pressure [Le ft Arm] 119/76 Blood Pressure [Le ft Forearm] 95/48 L Blood Pressure [Ri ght Arm] Pulse Oximetry 95 93 90 Oxygen Delivery Me thod Nasal Cannula Nasal Cannula Room Air Oxygen Flow Rate 1 0.5 09/27/24 08:35 09/27/24 08:39 09/27/24 08:39 Temperature Pulse Rate Pulse Rate [Pulse Oximeter] 72 72 72 Respiratory Rate 14 Blood Pressure [Le ft Arm] Blood Pressure [Le ft Forearm] 89/74 L Blood Pressure [Ri ght Arm] 113/67 Pulse Oximetry Oxygen Delivery Me thod Oxygen Flow Rate 09/27/24 08:39 09/27/24 10:09 09/27/24 10:24 Temperature Pulse Rate 71 Pulse Rate [Pulse Oximeter] Respiratory Rate 14 Blood Pressure [Le ft Arm] Blood Pressure [Le ft Forearm] Blood Pressure [Ri ght Arm] Pulse Oximetry 90 90 Oxygen Delivery Me thod Room Air Oxygen Flow Rate 09/27/24 11:40 Temperature 97.7 F Pulse Rate Pulse Rate [Pulse Oximeter] 70 Respiratory Rate 14 Blood Pressure [Le ft Arm] Blood Pressure [Le ft Forearm] 110/69 Blood Pressure [Ri ght Arm] Pulse Oximetry 93 Oxygen Delivery Me thod Room Air Oxygen Flow Rate DS: Data Data Completed and Pending Completed studies during hospitalization: 09/26/2024 EKG: Av dual paced rhythm with occasional premature ventricular complexes. 09/26/2024 EKG: ventricular paced rhythm, 65 beats per minute. 09/26/2024 EKG: Av dual paced rhythm with occasional premature ventricular complexes. 09/27/2024 echocardiogram: Normal LV size, normal wall thickness, normal global systolic function with an estimated EF of 55-60%. Right ventricular cavity size is moderately enlarged, global systolic RV function is moderately reduced. IVS Flattening consistent with RV pressure overload. Mildly enlarged left atrium. The aortic valve is sclerotic and calcified. Moderate to severe stenosis and trivial regurgitation. The aortic valve peak velocity is 3.8 m/sec, the peak gradient is 57 mm Hg and the median gradient is 32 mm Hg. Aortic valve area is 0.72 cm2 with a dimensionless index of 0.18. The stroke volume index is 36.6 mL/m2. There is MAC with calcified MV leaflets, moderate to severe stenosis mg 8 mm Hg at HR approximately 70 beats per minute, mild regurgitation. Mild to moderate tricuspid regurgitation. Severely increased estimated pulmonary pressures by tricuspid regurgitation velocity and right atrial pressure (50 mm Hg plus RAP). The inferior vena cava is not well visualized, respiratory size variation not well visualized. Ordering Physician: Keith Alba M.D. Date of Service: 09/25/24 Procedure(s): CT cervical spine wo con Accession Number(s): [id number] cc: Keith Alba M.D.; Angel Lawson M.D.~ For Patients: As a result of the Century Cures Act, medical imaging exams and procedure reports are released immediately into your electronic medical record. You may view this report before your referring provider. If you have questions, please contact your health care provider. INDICATION: Fall. TECHNIQUE: CT cervical spine without contrast. COMPARISON: None. FINDINGS: Cervical vertebral body height and alignment is maintained. Bilateral occipital condyles are intact. Atlantooccipital and atlanto odontoid interval is preserved. Multilevel degenerative changes of the spine with reduction of intervertebral disc height, uncovertebral and facet arthropathy. Minimal anterolisthesis of C7 over T1, likely secondary to facet arthropathy. No paravertebral hematoma or fluid collection. Small volume of pleural fluid in the right lung field is present. IMPRESSION: Multilevel moderate to advanced degenerative changes of the spine without acute traumatic injury. Small right pleural effusion. Please note that all CT scans at this facility use dose modulation, iterative reconstruction, and/or weight-based dosing when appropriate to reduce radiation dose to as low as reasonably achievable. Dictated by Rebecca Hercules MD @ 09/25/2024 7:54:35 AM (Electronically Signed) Ordering Physician: Keith Alba M.D. Date of Service: 09/25/24 Procedure(s): CT head/brain wo con Accession Number(s): [id number] cc: Keith Alba M.D.; Angel Lawson M.D.~ For Patients: As a result of the Century Cures Act, medical imaging exams and procedure reports are released immediately into your electronic medical record. You may view this report before your referring provider. If you have questions, please contact your health care provider. INDICATION: Fall. TECHNIQUE: CT head without contrast. COMPARISON: None. FINDINGS: No acute infarct or intracranial hemorrhage. No abnormal extra-axial fluid collection. Mild parenchymal atrophy is present. Nonspecific patchy white matter hypodensities likely related to chronic microvascular ischemic changes. Chronic lacunar infarct in bilateral basal ganglia. Chronic lacunar infarct in bilateral cerebellum. Skull base and calvarium: The visualized paranasal sinuses and mastoid air cells demonstrate no acute or significant findings. The visualized orbits are grossly unremarkable. Bilateral intra-ocular lens implantation. No skull fractures. IMPRESSION: Chronic changes without acute intracranial abnormality. Signed by: Rebecca Hercules MD @09/25/2024 7:51:20 AM DW/Dictated by: Rebecca Hercules MD @ 09/25/2024 7:51:00 AM (Electronically Signed) Ordering Physician: Keith Alba M.D. Date of Service: 09/25/24 Procedure(s): XR chest 2V Accession Number(s): [id number] cc: Keith Alba M.D.; Angel Lawson M.D.~ For Patients: As a result of the Cures Act, medical imaging exams and procedure reports are released immediately into your electronic medical record. You may view this report before your referring provider. If you have questions, please contact your health care provider. INDICATION: Shortness of breath, fall. TECHNIQUE: Chest 2 views. COMPARISON: X-ray chest September 01, 2023 FINDINGS/ IMPRESSION: Stable moderate cardiomegaly. No pulmonary edema or effusion. Left-sided cardiac defibrillator is in place. No focal pulmonary infiltrate or effusion. Degenerative changes of the spine. Dictated by Rebecca Hercules MD @ 09/25/2024 8:53:02 AM (Electronically Signed) Ordering Physician: Keith Alba M.D. Date of Service: 09/25/24 Procedure(s): XR knee LT 3V Accession Number(s): [id number] cc: Keith Alba M.D.; Angel Lawson M.D.~ For Patients: As a result of the Cures Act, medical imaging exams and procedure reports are released immediately into your electronic medical record. You may view this report before your referring provider. If you have questions, please contact your health care provider. Indication: Painful left knee, fall Technique: Left knee 3 views. Comparison: X-ray left knee September 2021 Findings/ Impression: Left total knee arthroplasty without periprosthetic fracture or loosening. No significant joint effusion. No interval change in the alignment. Dictated by Rebecca Hercules MD @ 09/25/2024 8:57:36 AM (Electronically Signed) Ordering Physician: Ben Moreau D.O. Date of Service: 09/25/24 Procedure(s): CT angio chest PE protocol Accession Number(s): [id number] cc: Ben Moreau D.O.; Angel Lawson M.D.~ For Patients: As a result of the 21st Century Cures Act, medical imaging exams and procedure reports are released immediately into your electronic medical record. You may view this report before your referring provider. If you have questions, please contact your health care provider. INDICATION: SOB. TECHNIQUE: CT chest pulmonary angiogram acquired with IV contrast. 95 mL IV Isovue 370. COMPARISON: Same day chest radiograph. FINDINGS: There is no acute pulmonary embolism. The main pulmonary artery is dilated measuring 4.2 cm in diameter. There is reflux of contrast into the IVC suggestive of right heart dysfunction. Normal caliber thoracic aorta. Moderate cardiomegaly. Pacemaker leads in the right atrial appendage and right ventricular apex. There is extensive streak artifact from a left chest wall pacemaker. Within this limitation there is no thoracic lymphadenopathy. There are multiple small collateral vessels in the left upper anterior chest wall/breast suggesting chronic venous obstruction likely at the axillary or subclavian level. The venous structures are not evaluated on this exam as they are not opacified by contrast and obscured by artifact from the pacemaker device. Cholelithiasis. Small hiatal hernia. Degenerative changes in the spine. No acute osseous abnormality. Small right and trace left pleural effusion. There are a few scattered calcified and noncalcified pulmonary micro nodules measuring up to 2 mm. No suspicious pulmonary nodule. No consolidation or pneumothorax. IMPRESSION: 1. No acute pulmonary embolism. 2. Cardiomegaly and small right and trace left pleural effusions. No evidence of pulmonary edema or infection. 3. Left upper anterior chest wall collateral vessels suggests chronic venous obstruction at the level of the axillary or subclavian vein. 4. Enlarged main pulmonary artery which is seen with pulmonary arterial hypertension. Please note that all CT scans at this facility use dose modulation, iterative reconstruction, and/or weight-based dosing when appropriate to reduce radiation dose to as low as reasonably achievable. Dictated by Brittnee Sommer MD @ 09/25/2024 2:17:48 PM (Electronically Signed) Labs on day of discharge: Labs from last 24 hours 09/27/24 06:05 WBC 4.32 L RBC 3.85 L Hgb 11.7 L Hct 36.4 MCV 95 MCH 30 MCHC 32 RDW Coeff of Angela 14.0 Plt Count 119 L Neut % (Auto) 56.3 Lymph % (Auto) 29.9 Bonner % (Auto) 11.3 H Eos % (Auto) 2.1 Baso % (Auto) 0.2 Neut # (Auto) 2.40 Lymph # (Auto) 1.30 Bonner # (Auto) 0.50 Eos # (Auto) 0.10 Baso # (Auto) 0.00 Abs Immat Gran (auto) 0.00 Imm/Tot Granulo (auto) 0.2 INR 2.39 H Sodium 132 L Potassium 3.6 Chloride 92 L Carbon Dioxide 34 H Anion Gap 6 L BUN 16 Creatinine 1.2 Estimated Creat Clear 31.21 Estimated GFR 45 Glucose 72 Calcium 8.7 Discharge Plan Discharge Disposition: Home, Self-Care Date of Admission: 09/27/24 09:09 Attending Provider on Discharge: Alyssa Zepeda Primary Care Provider: Angel Lawson Condition: Stable Anticipated Discharge Date/Time: 09/27/24 14:01 Discharge Medications: Continued atorvastatin 10 mg tablet 10 mg PO HS metoprolol succinate 50 mg tablet extended release 24 hr 25 mg PO DAILY gabapentin 300 mg capsule 300 mg PO HS albuterol sulfate 90 mcg/actuation HFA aerosol inhaler 2 puff inhalation Q4H PRN levothyroxine 112 mcg tablet 112 mcg PO DAILY Multaq 400 mg tablet 200 mg PO BIDWMEAL warfarin 2 mg tablet 2 mg PO SUTUWETHFRSA furosemide 20 mg tablet 20 mg PO DAILY PRN Patient Comments: FOR LOWER EXTREMITY EDEMA spironolactone 25 mg tablet 12.5 mg PO DAILY Qty: 15 0RF zolpidem [Ambien] 5 mg tablet 5 mg PO HS docusate sodium 100 mg capsule 100 - 300 mg PO DAILY PRN calcium carbonate-vitamin D3 [Calcium with Vitamin D] 600 mg-10 mcg (400 unit) tablet 1 tab PO BID fluticasone propion-salmeterol 230-21 mcg/actuation HFA aerosol inhaler 2 inh INHALATION BID Patient Comments: [NO ORIGINAL SIG] fluoxetine 10 mg capsule 10 mg PO DAILY warfarin 2 mg tablet 3 mg PO MO mupirocin 2 % ointment 1 applic topical BID PRN Rx Instructions: TO NOSE methyl salicylate-menthol Ointment 1 ea topical TID PRN Discharge Orders: Discharge Order (Routine); Ordered 09/27/24 Ordered By: Alyssa Zepeda Patient Education: Hypoxia (GEN), Fall Prevention (DC) Additional Instructions: Cardiology 1-2 weeks. Call to get pacer interrogated. PT home safety evaluation. Consider step up in services at home (assisted living). INR on 09/29/24 Activity Level: Activity as Tolerated and Use Walker Discharge Diet: Regular Follow Up Appointments: Maddie Mansfield PA [Referring] - 10/01/24 8:00 am (cardiology follow up) Angel Lawson MD [Primary Care Provider] - 09/29/24 9:10 am (Later this week. Have them help coordinate your cardiology appointment) Forms: [employer] Info Instructions
--- NOTE | 2024-09-27 15:05 | PC.NURSE ---
Discharge: Patient pleasant and cooperative. Patient vitally stable, lungs clear/diminished, BS WNL, IV removed, catheter intact. Patient on room air and sustained oxygenation low 90's with activity. Patient rates left side of body pain 7-8/10, norco and tylenol given once. Patient has a large bruise in the middle of her back. Patient sba with walker, urinating well and tolerating regular diet. Tele=NSR. Patient's daughter signed belongings sheet and discharge form, patient's daughter is unhappy that her mother is discharging. Patient left the floor by wheelchair to home at 1502.
== END 2024-09-27 15:02 | disposition home or self-care (01) | DRG 314 ==
LOC: ED 15:47 → MEDSURG 15:48
PROVIDERS: Internal Medicine; Student in an Organized Health Care Education/Training Program; Admitting Provider Family Medicine; Emergency Provider Family Medicine; PCP Family Medicine; Visit Provider Family Medicine
DX: I27.20 Pulmonary hypertension, unspecified (principal); J96.21 Acute and chronic respiratory failure with hypoxia; J96.22 Acute and chronic respiratory failure with hypercapnia; N17.9 Acute kidney failure, unspecified; I48.20 Chronic atrial fibrillation, unspecified; I13.0 Hypertensive heart and chronic kidney disease with heart failure and stage 1 through stage 4 chronic kidney disease, or unspecified chronic kidney disease; I50.32 Chronic diastolic (congestive) heart failure; Z91.148 Patient's other noncompliance with medication regimen for other reason; I35.0 Nonrheumatic aortic (valve) stenosis; N18.30 Chronic kidney disease, stage 3 unspecified; I08.3 Combined rheumatic disorders of mitral, aortic and tricuspid valves; G31.84 Mild cognitive impairment of uncertain or unknown etiology; Z79.01 Long term (current) use of anticoagulants; E66.9 Obesity, unspecified; E87.6 Hypokalemia; G47.30 Sleep apnea, unspecified; J45.909 Unspecified asthma, uncomplicated; Z95.810 Presence of automatic (implantable) cardiac defibrillator; M48.061 Spinal stenosis, lumbar region without neurogenic claudication; F32.A Depression, unspecified; E03.9 Hypothyroidism, unspecified; F41.9 Anxiety disorder, unspecified; E78.5 Hyperlipidemia, unspecified; R00.0 Tachycardia, unspecified; Z91.81 History of falling
CPT/HCPCS: 36415; 70450; 71046; 71275; 72125; 73562; 80048; 81001; 82550; 82565; 82803; 83735; 83880; 84132; 84439; 84443; 84484; 85025; 85027; 85610; 87086; 87631; 93306; 94640; 94761; 97116; 97161; 97165; 97530; 97535; 99283; 99285; A9270; G0378; J1171; J2270; J7120; J7626; Q9967

== ENCOUNTER 2024-11-03 23:11 | Emergency (ER) | payer MEDICARE, OTHER, SELFPAY ==
--- OUTSIDE RECORDS SUMMARY | 2024-11-03 23:13 | XMS_ITS | Clinical Summary ---
Author Organization [facility] Address Formerly [facility] [place] [address] Care Team Providers Care Yard Switch Operator Name Role Phone Jamey Sprague MD Primary Care Provider [phone] Karen Baron RN Unavailable [phone] [facility] [place] Unavailable [phone] Allergies Active Allergy Reactions Criticality Noted Date [...] meals. 90 Tablet 3 024 Active FLUoxetine 10 mg capsuleIndications:Depr ession, major, single episode, severe (HC),Grief reaction Take 1 Capsule (10 mg) by mouth once daily in the morning. 30 Capsule 11 10/22/19 25 1:58 PM CDT 024 Active albuterol HFA (PRO-AIR; VENTOLIN; PROVENTIL) 90 mcg/actuation inhalerIndications:Asth ma, unspecified asthma severity, unspecified whether complicated, unspecified whether persistent (HC),Moderate persistent asthma without complication (HC) USE 1 TO 2 INHALATIONS EVERY 4 HOURS IF NEEDED FOR SHORTNESS OF BREATH 25.5 g 6 024 Active fluticasone propion-salmeteroL (Advair HFA) 230-21 mcg/actuation inhalerIndications:Mode rate persistent asthma without complication (HC) Inhale 2 Puffs by mouth two times daily. 3 Each 3 024 Active furosemide (LASIX) 20 mg tabletIndications:Edema , unspecified type TAKE 1 TABLET DAILY NEEDED WITH THE POTASSIUM 90 Tablet 3 024 Active atorvastatin (LIPITOR) 10 mg tabletIndications:Pure hypercholesterolemia TAKE 1 TABLET AT BEDTIME 90 Tablet 2 024 Active zolpidem 5 mg tabletIndications:Insom antwan due to medical condition Take 1 Tablet (5 mg) by mouth at bedtime. 30 Tablet 5 10/13/19 25 11:48 AM CDT 11/19/2 024 Active warfarin (COUMADIN) 2 mg tabletIndications:Parox [...] CAPSULE AT BEDTIME 90 Capsule 025 Active Synthroid 112 mcg tabletIndications:Hypot hyroidism, unspecified type TAKE 1 TABLET DAILY 90 Tablet 3 025 Active spironolactone 25 mg tabletIndications:Essen tial hypertension Take one-half Tablet (12.5 mg) by mouth once daily. 45 Tablet 10/23/19 25 5:39 PM CDT 025 Active HYDROcodone-acetaminoph en (5-325 mg/tablet)Indications:C ontrolled substance agreement signed,Chronic bilateral low back pain without sciatica,Spinal stenosis of lumbar region without neurogenic claudication Take 1 tablet by mouth 3 times daily as needed for severe pain 90 Tablet 10/23/19 25 5:39 PM CDT 025 Active spironolactone (ALDACTONE) 25 mg tabletIndications:Essen tial hypertension Take one-half Tablet (12.5 mg) by mouth once daily. 45 Tablet 08/14/19 25 11:34 AM DIRECTOR OF APPLICATION DEVELOPMENT 025 2024 Disconti nued(Reo rder (E-cance l not sent)) HYDROcodone-acetaminoph en (5-325 mg/tablet)Indications:C ontrolled substance agreement signed,Chronic bilateral low back pain without sciatica,Spinal stenosis of lumbar region without neurogenic claudication Take 1 tablet by mouth 3 times daily as needed for severe pain 90 Tablet 09/14/19 25 7:20 PM DIRECTOR OF APPLICATION DEVELOPMENT 025 2024 Disconti nued(Reo rder (E-cance l [...] telling me or getting my permission. 02/19/2013 Juvenal Casanova has elected to enroll in the [facility] research project and meets inclusion criteria through diagnosis of heart failure. Paola Denney is assigned as [facility] Care Guide. Paola Denney .................... 02/19/2013 12:18 PM Problem Noted Date Diagnosed Date Severe pulmonary hypertension 10/01/2024 Acute on chronic diastolic congestive heart fail ure 09/05/2023 Chronic obstructive pulmonar y disease, unspecified COPD type 09/05/2023 Cataract 07/31/2023 Opioid dependence, uncomplicated 10/06/2020 Morbid exogenous obesity 10/06/2020 Generalized anxiety disorder 03/05/2019 Depression, major, single episode, moderate 03/2019 Essential hypertension 07/07/2018 Prediabetes 11/03/2017 Chronic renal disease, stage 3, moderately decreased glomerular filtration rate between 30-59 mL/min/1.73 square meter 04/05/2016 Anticoagulation monitoring, INR range 2-3 2014 Controlled substance agreement signed 2014 Paroxysmal atrial tachycardia post AF ablation 0 03/25/2012 Epistaxis 03/25/2012 ICD (implantable cardiac defibrillator) in place 12/30/2011 SIMI 03/23/2010 AHI- 28.9 03/04/2011 Issue of repeat prescriptions 01/03/2011 Overview (03/05/2019): [place] 5/325 #120/month. Spinal stenosis of lumbar re [...] identified Specific Treatment Preferences: Yes On 06/14/16 Juvenal expressed a desire to change her current Statement of Preferences at a future date. On 10/14/14, Juvenal completed a new Healthcare Directive naming Jazmín Cheung as her primary healthcare agent. [phone]. Her son Star Ibrahim is no longer her healthcare agent as of 10/14/14. Understanding of Illness and Disease [facility]: Juvenal identifies her medical condition as heart failure and describes it as life limiting. She identifies the following symptoms of her medical condition as being the most bothersome: limitations on cleaning the household, walking her dog Blue. Juvenal said I have had to limit some of the usual cleaning responsibilities due to physical symptoms of fatigue and shortness of breath. (Paraphrase) Goals of Care: Juvenal currently hopes to remain living independently at home for as long as possible, and to live as long as I can, to the best of my ability. Juvenal also indicates she always wants Complete Honesty from her healthcare providers regarding her state of health. Juvenal has shared that what is most important to her is to be able to communicate, and interact with others. Juvenal indicates being on a ventilator would mean she couldn't do this, and this would not be acceptable. Juvenal stated she saw her brother when he was on a ventilator, and was impacted very much by this experience. Quality of Life: The following present and future experiences are most important for Juvenal to live well: walking with my dog blue, spending time playing cards and socializing with friends, reading, making sure Blue is cared for if I am unable, and living at home as long as possible. Juvenal ernesto with serious challenges in her life: Family: Daughter(s) and Son(s) and Friends Juvenal stated specifically her children help her through difficult times in life. Juvenal identifies the following fears and worries about her medical care: having uncontrolled pain or symptoms, losing mental capacity, and most important to Juvenal is to NOT be intubated or placed on a respirator; under any circumstances. Juvenal has indicated a strong preference to not go to a alf. Of utmost importance to Juvenal is that her children are ok with her dying; that they accept it. Juvenal states currently some of her children are in denial about her current health condition, are are unable to view it, or discuss as a terminal illness. Treatment and Care Preferences: Past experiences in dealing with family and/or friends that have or been seriously ill include other family members. As a result of these experiences, Juvenal expresses these health care preferences: - Offer food and liquids by mouth - Tube feeding though mouth or nose - Tube feeding directly into GI tract - IV fluid administration If/when Juvenal is at the end-stage of her illness or terminally ill, she prefers to receive care at home with hospice. Summary Juvenal's Treatment Preferences: LOW SURVIVAL; HIGH TREATMENT BURDEN: If Juvenal suffered a serious complication, such that she was facing a prolonged hospital stay, required ongoing medical interventions, and the chance of living through the complication was low (for example, only 5 out of 100 would live), Juvenal would choose: To stop all efforts to keep me alive (For me, quality of life is more important than length of life) Juvenal stated; make me comfortable, no ventilator under any circumstances. to focus treatment on comfort and quality of life (Quality of life is more important than length of life to Juvenal.) HIGH SURVIVAL; LOW FUNCTIONAL STATUS: If Juvenal had a serious complication and had a [...] I don't want to go to a alf. to focus treatment on comfort and quality of life (Quality of life is more important than length of life to Juvenal.) HIGH SURVIVAL; LOW COGNITIVE STATUS: If Juvenal had a serious complication and had a [...] more important than length of life to Juvenal.) CARDIO-PULMONARY RESUSCITATION (CPR): The facts, risks and benefits of CPR were discussed with Juvenal. If she had a sudden event that caused her heart and breathing to stop, she WOULD want CPR attempted unless my physician determines any one of the following; I have an incurable illness or injury and am dying; OR I have no reasonable chance of survival if my heart stops' OR I have little chance of manager intermediate survival if my heart stops and the process of resuscitation would cause significant suffering. Goals of Treatment (POLST) Juvenal selected LIMITED INTERVENTIONS AND TREAT REVERSIBLE CONDITIONS; Use of IV/IM Antibiotic treatment Offer food and liquids by mouth Tube feeding through mouth or nose Tube feeding directly into GI tract IV fluid administration DNI, and no mechanical ventilation. MECHANICAL VENTILATION: If Juvenal had an episode where she was unable to breathe on her own, she would choose the following: NO MECHANICAL VENTILATOR do not attempt to assist breathing by non-invasive methods or mechanical ventilation Follow Up Plan: Juvenal was encouraged to continue advance care planning discussions with her health care agent Star Ibrahim (son) as well as her other children. Designated Family Member: Star Ibrahim and primary care provider. Advance Care Planning discussion guide was given to Juvenal and her health care agent for review. Juvenal identified the following concerns during her advance care planning session: Juvenal's primary concern as noted throughout this document was under no circumstances to be placed on a ventilator, or be intubated. Questions identified for her primary care provider: Juvenal did not have questions at this time of her provider. Documents addressed during this advance care planning session: Health Care Agents identified. Primary health care agent is Star Ibrahim; secondary health care agent is Juvenal's other children.. Statement of Treatment Preferences for advanced illness completed and scanned into the medical record. Recommendations/Plan: Juvenal and her health care agent to discuss and review Advance Care Plan and completed POLST. Juvenal to identify secondary health care agent, and discuss completed POLST with Star (Son) and her other children. Juvenal and or health care agents to follow up with this typewriter mechanic (Benja Linares, [facility]) if and when there are questions related to Advance Care Planning, and/or Health Care Agent information/understanding. Juvenal would benefit from: Home Care Care Navigation Help Desk Care Navigation brochure(s) was given to Juvenal. Advance Care Planning recommendations and Juvenal's concerns and questions were cc e d to her primary provider. Interviewer: Benja Linares, WIRE LATHER, [facility] [phone] 10/13/2013 11:37 AM 10/07/2013 H/O CVA (cerebral vascular accident) 08/03/2010 Overview (12/06/2010): -H[place]ized in [place] Superficial phlebitis 08/01/2010 Hyperlipidemia 07/06/2010 Major depression, [...] Encounters Date Type Department Care Team Description 11/01/2024 12:00 PM CDT Ancillary Procedure [facility] [address] [facility] [address] [place] [address] Arrived 11/01/2024 Telephone [place] [id number] [place] [address] Jamey Sprague MD Results 11/01/2024 Travel 10/29/2024 3:15 PM CDT Ancillary Procedure [place] [id number] [place] [address] 10/29/2024 2:35 PM CDT Office Visit [place] [address] [place] [address] Jamey Sprague MD Back Pain; Follow Up; Toe Pain/problem (rt toe ) 10/29/2024 Travel 10/21/2024 Refill [facility] [address] [place] [address] Jamey Sprague MD Refill Request ([place]) 10/20/2024 Refill [facility] [address] [place] [address] Jamey Sprague MD Refill Request (spironolactone) 10/07/2024 Telephone [place] [address] [place] [address] Jamey Sprague MD Form (PHYSICIAN ORDER) 10/06/2024 Anticoagulation (warfarin) [place] [id number] [place] [address] [facility] Anticoagulation (HC POCT) 10/05/2024 9:00 AM CDT Office Visit [facility] [address] [facility] [address] [place] [address] Miguel Valdez MD Consult ([facility] 09/25; SEEN AT [facility] FOR FALL AND HYPOXIA//pt states she feels sore from falling but no cardiac symptoms. Moves very slow.) 10/05/2024 Travel 10/01/2024 11:15 AM DIRECTOR OF APPLICATION DEVELOPMENT Office [place] [facility] [address] [facility] [place] [address] Jamey Sprague MD Hospital F/U (DOD 09/27/24 from [facility]) 10/01/2024 Travel 09/30/2024 Telephone [facility] [address] [place] [address] Jamey Sprague MD Form (ORDERS) 09/28/2024 Telephone [facility] [address] [place] [address] Jamey Sprague MD Questions 09/27/2024 10:00 AM DIRECTOR OF APPLICATION DEVELOPMENT Ancillary Procedure [facility] [address] [place] [address] 09/27/2024 Telephone [facility] [address] [place] [address] Jamey Sprague MD Results 09/25/2024 Orders Only [facility] Scanner 1 scan: (1-Ord) [facility], ANGIO CHEST PE PROTOCOL , 09/25/2024 09/25/2024 Orders Only [facility] Scanner 1 scan: (1-Ord) [facility], KNEE LT 3V, 09/25/2024 09/25/2024 Orders Only [facility] Scanner 1 scan: (1-Ord) [facility], HEAD/BRAIN WO CON , 09/25/2024 09/25/2024 Orders Only [facility] Scanner 1 scan: (1-Ord) [facility], CHEST 2 VIEWS, 09/25/2024 09/25/2024 Orders Only [facility] Scanner 1 scan: (1-Ord) [facility], CERVICAL CPINE WO CON , 09/25/2024 09/25/[address] [facility] Scanner 1 scan: (1-Ord) [facility], CERVICAL SPINE WO CON - HEAD , 09/25/2024 09/16/2024 Telephone [facility] [address] [place] [address] Jamey Sprague MD Anticoagulation (Annual re-enrollment /) 09/14/2024 Refill [facility] [address] [place] [address] Jamey Sprague MD Refill Request 09/13/2024 Telephone [facility] [address] [place] [address] Jamey Sprague MD Form (PHYSICIAN ORDER) 09/08/2024 Anticoagulation (warfarin) [facility] [address] [place] [address] [facility] Antico[facility] (Home care) 08/27/2024 Telephone [facility] [address] [place] [address] Jamey Sprague MD Form (PHYSICIAN ORDER) 08/25/2024 Anticoagulation (warfarin) [facility] [address] [place] [address] [facility] (Home care) 08/16/2024 Refill [facility] [address] [place] [address] Jamey Sprague MD Refill Request (Synthroid) 08/13/2024 Refill [place] [id number] [place] [address] Jamey Sprague MD Refill Request (HYDROcodone-acetamin ophen (5-325 mg/tablet)) 08/11/2024 Refill [facility] [address] [place] [address] Jamey Sprague MD Refill Request (Spironolactone) 08/05/2024 Refill [facility] [address] [place] [address] Jamey Sprague MD Refill Request (Warfarin clarification/) from Last 3 Months Immunizations Immunization Administration Dates Next Due COVID-19 VACCINE SPIKEVAX (M ODERNA 50MCG/0.5ML) 12YO+ PFS 06/27/2023 COVID-19 vaccine (Pfizer-Bio NTech 30mcg/0.3mL) PF, MDV 08/30/2020,08/09/2020 Influenza A (H1N1), Inactiva kathleen (Age 6-35 Mos) 07/12/2009 Influenza, High-dose Inactivated 017,03/22/2016,08/09/2015,2013 Influenza, IIV3 (Age >=3 years) 09/08/2013,04/14,07/05/2010 Influenza, Inactivated AIIV4 (Age 65+ Years) Preserv Free 06/27/2023,04/02/2022,04/23/2021,2019 Influenza, Inactivated IIV3 (Age 65+ Years) Preserv Free 10/01/2024,07/07/2019,06/24/2018 Influenza, Whole Virus 06/30/2003 Pneumococcal Poly,23-Valent (Pneumovax) [...] 6 02/10/2024 Social Connections Answer Date Recorded Do you often feel lonely or isolated from those around you? 0 10/01/2024 Financial Resource Strain Answer Date R ecorded Difficulty of Paying Living Expenses 3 10/01/2024 Difficulty of Paying Living Expenses Not on file 10/01/2024 Food Insecurity Answer Date Recorded Do you worry your food will run out before you are able to buy more? 1 10/01/2024 Transportation Needs Answer Date Record ed Does lack of transportation keep you from medica l appointments? 1 10/01/2024 Does lack of transportation keep you from work, meetings or getting things that you need? 1 10/01/2024 Housing Stability Answer Date Recorded What is your housing situation today? 1 10/01/2024 Utilities Answer Date Recorded Do you have trouble paying f or utilities (for example, heat, electricity, water, phone)? 1 10/01/2024 Comments No Sex and Gender Information Value Date Recorded Sex Assigned at Not on file Legal Sex Female 7:13 AM DIRECTOR OF APPLICATION DEVELOPMENT Gender Identity Not on file Sexual Orientation Not on file Obstetrics History Last Filed Vital Signs Vital Sign Reading Time Taken Comments Blood Pressure 98/64 10/29/2024 2:33 PM CDT Pulse 71 10/05/2024 9:01 AM CDT Temperature 36.2 C (97.1 F) 07/31/2023 9:06 AM DIRECTOR OF APPLICATION DEVELOPMENT Respiratory Rate 16 10/29/2024 2:33 PM CDT Oxygen Saturation 95% 10/29/2024 2:33 PM CDT Inhaled Oxygen Concentration - - Weight 83.1 kg (183 lb 4.8 oz) 10/29/2024 2:33 P M CDT Height 154.9 cm (5' 1) 10/05/2024 9:01 AM CDT Body Mass Index 34.63 10/05/2024 9:01 AM CDT Plan of Treatment Upcoming Encounters Date Type Department Care Team (Late st Contact Info) Description 11/04/2024 10:00 AM CDT Appointment [facility] [address] [place], [place] [phone] Hugh Ramon, PT [address] [place], [place] [phone] Health Maintenance Due Date Last Done Comments Zoster (shingles) series for age 50+ (1 of 2) 1992 RSV vaccine for adults or (1 - 1-dose 75+ series) 2017 Tetanus booster 12/20/2020 12/20/2010, 04/30/2004 COVID-19 vaccine series ( season) 2024 06/27/2023, 08/30/2020, 08/09/2020 Medicare Wellness for age 65+ 06/27/2024, 04/02/2022, 04/26/2021, Additional history exists Depression screening for age 12+ 02/10/2025 02/11/2024, 02/10/2024, 06/27/2023, Additional history exists BMI (ht and wt on same day) for age 18+ 10/05/2025 10/05/2024, 10/09/2023, 07/25/2023, Additional history exists Tdap Completed 12/20/2010 DEXA/DXA scan for age 65+ Completed 2010, 12/20/2010 (Postponed) Pneumococcal series for age 50+ Completed 04/02/2017, 03/22/2016, 12/20/2010, Additional history exists Influenza Vaccine Completed 10/01/2024, , 04/02/2022, Additional history exists Medical Devices Implanted Type Area Blood Tester Fowl Device Identifier Shelf Expiration Date Model / Serial / Lot Icd Only-12/03/2011 Implanted:02/2012 (Quantity not on file) ICD Only [employer] [id number] / [id number] / Iol Irwin Preload 1 Pc Clear 6mm 21.00 Diopter Tecnis - [id number] Implanted:Qty : 1 on 07/31/2023 by Singh Valentin MD at [facility] Opthalmology Implants Left: Eye [employer] 02/23/2026 [id number] / [id number] / N/A Iol Irwin Preload 1 Pc Clear 6mm 20.50 Diopter Tecnis - [id number] Implanted:Qty : 1 on 07/03/2023 by Singh Valentin MD at [facility] Right: Eye [employer] 03/10/2026 [id number] / [id number] / NA Procedures Procedure Name Priority Date/Time Associated Diagnosis Comments CT SPINE LUMBAR WO GLORIA 11/01/2024 12 :17 PM CDT Fall, subsequent encounter Acute midline low back pain without sciatica XR FOOT 3 VIEWS RIGHT Routine 10/29/2024 3:34 PM CDT Fall, subsequent encounter Foot pain, right Contusion of right foot, subsequent encounter EKG 12 LEAD Routine 10/05/2024 9:04 AM CDT Routine general medical examination at a [facility] care facility ECHO TTE COMPLETE WO CONTRAST Routine 09/27/2024 11:15 AM DIRECTOR OF APPLICATION DEVELOPMENT Syncope SCAN-CT INTERPRETATION 5 12:00 AM DIRECTOR OF APPLICATION DEVELOPMENT SCAN-RADIOLOGY REPORT 09/25/2024 12:00 AM DIRECTOR OF APPLICATION DEVELOPMENT SCAN-CT INTERPRETATION 5 12:00 AM DIRECTOR OF APPLICATION DEVELOPMENT SCAN-RADIOLOGY REPORT 09/25/2024 12:00 AM DIRECTOR OF APPLICATION DEVELOPMENT SCAN-CT INTERPRETATION 5 12:00 AM DIRECTOR OF APPLICATION DEVELOPMENT SCAN-CT INTERPRETATION 5 12:00 AM DIRECTOR OF APPLICATION DEVELOPMENT XR DXA BONE DENSITY 2 SITES AXIAL Routine 01/01/2011 3:10 PM CDT Postmenopausal from Last 3 Months or Most Recently Relevant to Health Maintenance Results * CT SPINE LUMBAR WO (11/01/2024 12:17 PM CDT) Anatomical Region Laterality Modality LUMBAR SPINE, Spine, Spine Compu kathleen Tomography 11/01/2024 12:3 6 PM CDT Narrative 11/01/2024 12:36 PM CDT For Patients: As a result of the Cures Act, medical imaging exams and procedure reports are released immediately into your electronic medical record. You may view this report before your referring provider. If you have questions, please contact your health care provider. Indication: Fall, acute midline low back pain Technique: Noncontrast axial CT of the lumbar spine with coronal and sagittal reformats. Comparison: Lumbar spine x-ray 07/06/2019, CT lumbar spine 10/11/2015 Findings: Lumbar dextroconvex curvature, with preserved lordosis. Mild chronic-appearing L2 superior endplate compression fracture, new relative to 07/07/2019. Grade 1 anterolisthesis at L4-5 and L5-S1 with chronic bilateral L5 spondylolysis, stable. No acute fracture identified. Multilevel spondylosis. Moderate/moderately severe right neural foraminal stenosis at L5-S1, similar to 10/11/2015. No other significant neural foraminal or spinal canal stenosis. Degenerative changes at the included bilateral SI joints. Aortoiliac atherosclerotic plaquing. Impression: 1. No evidence of acute fracture or traumatic malalignment in the lumbar spine. 2. Mild chronic-appearing L2 superior endplate compression deformity appears new relative to 2019. 3. Lumbar dextroconvex curvature, with low-grade spondylolisthesis and chronic bilateral L5 spondylolysis, stable. 4. Spondylosis with moderate/moderately severe right neural foraminal stenosis at L5-S1, stable. Please note that all CT scans at this facility use dose modulation, iterative reconstruction, and/or weight-based dosing when appropriate to reduce radiation dose to as low as reasonably achievable. Dictated by Richelle Humphrey MD @ 11/01/2024 12:36:36 PM (Electronically Signed) Procedure Note Richelle Humphrey, - 11/01/2024 For Patients: As a result of the Century Cures Act, medical imagingexams and procedure reports are released immediately into your electronicmedical record. You may view this report before your referring provider.If you have questions, please contact your health care provider. Indication: Fall, acute midline low back pain Technique: Noncontrast axial CT of the lumbar spine with coronal and sagittalreformats. Comparison: Lumbar spine x-ray 07/06/2019, CT lumbar spine 10/11/2015 Findings: Lumbar dextroconvex curvature, with preserved lordosis. Mildchronic-appearing L2 superior endplate compression fracture, new relativeto 07/07/2019. Grade 1 anterolisthesis at L4-5 and L5-S1 with chronicbilateral L5 spondylolysis, stable. No acute fracture identified.Multilevel spondylosis. Moderate/moderately severe right neural foraminalstenosis at L5-S1, similar to 10/11/2015. No other significant neuralforaminal or spinal canal stenosis. Degenerative changes at the includedbilateral SI joints. Aortoiliac atherosclerotic plaquing. Impression: 1. No evidence of acute fracture or traumatic malalignment in the lumbarspine. 2. Mild chronic-appearing L2 superior endplate compression deformityappears new relative to 2019. 3. Lumbar dextroconvex curvature, with low-grade spondylolisthesis andchronic bilateral L5 spondylolysis, stable. 4. Spondylosis with moderate/moderately severe right neural foraminalstenosis at L5-S1, stable. Please note that all CT scans at this facility use dose modulation,iterative reconstruction, and/or weight-based dosing when appropriate toreduce radiation dose to as low as reasonably achievable. Dictated by Richelle Humphrey MD @ 11/01/2024 12:36:36 PM (Electronically Signed) us Jamey Sprague MD CT Final Resul t * XR FOOT 3 VIEWS RIGHT (10/29/2024 3:34 PM CDT) Anatomical Region Laterality Modality FEET, FOOT R Computed Radiogr aphy 11/01/2024 11:1 3 AM CDT Narrative 11/01/2024 11:13 AM CDT For Patients: As a result of the Cures Act, medical imaging exams and procedure reports are released immediately into your electronic medical record. You may view this report before your referring provider. If you have questions, please contact your health care provider. INDICATION : Trauma TECHNIQUE : 3 View right foot FINDINGS : AP and oblique views. Joint space narrowing in the midfoot no signs of acute fracture. No change 02/09/2016. IMPRESSION : No signs of acute fracture Dictated by Benedicto Mayer MD @ 11/01/2024 11:13:55 AM (Electronically Signed) Procedure Note Benedicto Mayer MD - 11/01/2024 For Patients: As a result of the Cures Act, medical imagingexams and procedure reports are released immediately into your electronicmedical record. You may view this report before your referring provider.If you have questions, please contact your health care provider. INDICATION : Trauma TECHNIQUE : 3 View right foot FINDINGS : AP and oblique views. Joint space narrowing in the midfoot no signs of acute fracture. No [id number]/2016. IMPRESSION : No signs of acute fracture Dictated by Benedicto Mayer MD @ 11/01/2024 11:13:55 AM (Electronically Signed) us Jamey Sprague MD GENERAL IMAGING Final Resul t * EKG 12 LEAD (10/05/2024 9:04 AM CDT) Interpretation AV dual-paced rhythm Abnormal ECG When compared with ECG of 09-Oct-2023 08:32, Electronic ventricular pacemaker has replaced Electronic atrial pacemaker Ventricular Rate 71 BPM Atrial Rate 71 BPM P-R Interval 178 ms QRS Duration 222 ms QT 542 ms QTc 588 ms P [place] 5 degrees R [place] -79 degrees T [place] 98 degrees 10/05/2024 9:04 AM CDT 10/11/2024 11:48 AM CDT us Miguel Valdez MD EKG ORD Final Result * ECHO TTE COMPLETE WO CONTRAST (09/27/2024 11:15 AM DIRECTOR OF APPLICATION DEVELOPMENT) AORTIC VALVE MEAN PG 32 mmHg EJECTION FRACTION 65 % PEAK TR VELOCITY 3.5 m/s LVEDD 4.8 cm EJECTION FRACTION 55 - 60% Anatomical Region Laterality Modality Ultrasound 09/27/2024 10:4 2 AM DIRECTOR OF APPLICATION DEVELOPMENT Narrative 09/27/2024 11:45 AM DIRECTOR OF APPLICATION DEVELOPMENT ECHOCARDIOGRAM JUVENAL CASANOVA : 1940 84 years Study Date: 09/27/2024 10:42:01 AM Gender: F BP: 113/67 mmHg Height: 163.00 cm BSA: 1.91 m Weight: 85.00 kg Tech: NWA Referring MD: JAMEY SPRAGUE Site: [facility] Reading Location: Mobile- Patient Location: Inpatient. Procedure: 2D, Color Doppler and Spectral Doppler. Indication for study: Fall Syncope Cardiac Rhythm: Regular.Study quality: Good. Final Impressions: 1. Normal LV size, normal wall thickness, normal global systolic function with an estimated EF of 55 - 60%. 2. Right ventricular cavity size is moderately enlarged, global systolic RV function is moderately reduced. 3. IVS flattening consistent with RV pressure overload. 4. Mildly enlarged left atrium. 5. The aortic valve is sclerotic and calcified, moderate to severe stenosis and trivial regurgitation. The aortic valve peak velocity is 3.8 m/s, the peak gradient is 57 mmHg, and the mean gradient is 32 mmHg. The aortic valve area is 0.72 cm with a dimensionless index of 0.18. The stroke volume index is 36.6 ml/m . 6. 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 7. Mild-moderate tricuspid regurgitation. 8. Severely increased estimated pulmonary pressures by tricuspid regurgitation velocity and right atrial pressure (50 mmHg plus RAP). 9. The inferior vena cava is not well visualized, respiratory size variation not well visualized. Comparison Compared to prior exam of 09/02/23: - now moderate-severe -MS remains moderate-severe -RV appears larger and dysfunctional. Chamber Sizes and Function Normal left ventricular size, normal wall thickness, normal global systolic function with an estimated EF of 55 - 60%. No resting regional wall motion abnormality visualized. Left atrial size is mildly enlarged. Right ventricular cavity size is moderately enlarged, global systolic RV function is moderately reduced. RV wall thickness is normal. The right atrium is mildly enlarged. Right atrial volume index is 52 ml/m . Right atrial area is 28 cm . The pulmonary artery is of normal size and origin. The sinus of Valsalva is normal sized. The ascending aorta is normal sized. Valves, RV Pressures and Diastolic Function The aortic valve is sclerotic and calcified, moderate to severe stenosis and trivial regurgitation. The mitral valve is sclerotic, mild mitral regurgitation. Mitral annular calcification is present. Indeterminate pattern of LV diastolic filling. The tricuspid valve is normal in structure and mild-moderate tricuspid regurgitation. The tricuspid regurgitant velocity is 3.5 m/s, the estimated right ventricular systolic pressure is 50 mmHg plus right atrial pressure. There is severely increased estimated pulmonary pressure by tricuspid regurgitation velocity and right atrial pressure. The pulmonic valve is normal. No pulmonary regurgitation. Masses, Effusion, Shunts There is no pericardial effusion. The inferior vena cava is not well visualized, respiratory size variation not well visualized. No left to right shunting was detected by limited color flow Doppler interrogation of the interatrial septum. MEASUREMENTS AND CALCULATIONS 2-D Measurements and LV Function: LVID (d) 4.8 cm LV FS% (2D) 32 % LVID (s) 3.2 cm LVOT diameter 2.2 cm IVS (d) 1.1 cm HR 69 bpm LVPW (d) 1.0 cm LA Vol index 37 ml/m2 Ao Sinus 3.4 cm RA Vol index 52 ml/m2 Ao Sinus ULN 3.8 cm * RA area 28 cm Asc Ao 3.3 cm RV Basal Diam 4.3 cm Asc Ao ULN 4.1 cm * RV Mid Diam 2.4 cm LA 4.5 cm * Input BSA and age are outside of ranges, reported values correspond to BSA = 1.9 and Age = 82 Diastology: Mitral Tissue Doppler Pulmonary veins E Peak 2.3 m/s e', Septum 0.05 m/s Pulm s 34.6 cm/s e', Lateral 0.07 m/s Pulm d 51.4 cm/s E/e' Average 37.44 Pulm s/d ratio 0.67 Aortic Valve: Vmax 3.8 m/s RONALD (V) 0.65 cm VTI 0.97 m RONALD (I) 0.72 cm LVOT V max 0.6 m/s Max PG 57 mmHg LVOT VTI 0.18 m Mean PG 32 mmHg SV 70 ml Dim Index 0.18 SV index 37 ml/m CO 4.8 l/min CI 2.5 l/min/m Mitral Valve: MV Mean G 8 mmHg MV VTI 0.67 m Tricuspid Valve and estimated PA pressures: TR Vmax 3.5 m/s TAPSE 1.2 cm TR maxG 50 mmHg Pulmonic Valve: PV Vmax 1.7 m/s PIEDV 1.6 m/s . This study was interpreted by an [facility] accredited facility. CC: [facility] (med records) [facility], Med/Surg - IP [facility]. Final Procedure Note Shay Aguilera MD - 09/27/2024 ECHOCARDIOGRAM JUVENAL CASANOVA : 1940 84 years Study Date: 09/27/2024 10:42:01 AM Gender: F BP: 113/67 mmHg Height: 163.00 cm BSA: 1.91 m Weight: 85.00 kg Tech: CHAPO Referring MD: JAMEY SPRAGUE Site: [facility] Reading Location: Mobile- Patient Location: Inpatient. Procedure: 2D, Color Doppler and Spectral Doppler. Indication for study: Fall Syncope Cardiac Rhythm: Regular.Study quality: Good. Final Impressions: 1. Normal LV size, normal wall thickness, normal global systolic functionwith an estimated EF of 55 - 60%. 2. Right ventricular cavity size is moderately enlarged, global systolicRV function is moderately reduced. 3. IVS flattening consistent with RV pressure overload. 4. Mildly enlarged left atrium. 5. The aortic valve is sclerotic and calcified, moderate to severestenosis and trivial regurgitation. The aortic valve peak velocity is 3.8m/s, the peak gradient is 57 mmHg, and the mean gradient is 32 mmHg. Theaortic valve area is 0.72 cm with a dimensionless index of 0.18. Thestroke volume index is 36.6 ml/m . 6. 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 7. Mild-moderate tricuspid regurgitation. 8. Severely increased estimated pulmonary pressures by tricuspidregurgitation velocity and right atrial pressure (50 mmHg plus RAP). 9. The inferior vena cava is not well visualized, respiratory sizevariation not well visualized. Comparison Compared to prior exam of 09/02/23: - now moderate-severe -MS remains moderate-severe -RV appears larger and dysfunctional. Chamber Sizes and Function Normal left ventricular size, normal wall thickness, normal globalsystolic function with an estimated EF of 55 - 60%. No resting regionalwall motion abnormality visualized. Left atrial size is mildly enlarged.Right ventricular cavity size is moderately enlarged, global systolic RVfunction is moderately reduced. RV wall thickness is normal. The rightatrium is mildly enlarged. Right atrial volume index is 52 ml/m . Rightatrial area is 28 cm . The pulmonary artery is of normal size and origin.The sinus of Valsalva is normal sized. The ascending aorta is normalsized. Valves, RV Pressures and Diastolic Function The aortic valve is sclerotic and calcified, moderate to severe stenosisand trivial regurgitation. The mitral valve is sclerotic, mild mitralregurgitation. Mitral annular calcification is present. Indeterminatepattern of LV diastolic filling. The tricuspid valve is normal instructure and mild-moderate tricuspid regurgitation. The tricuspidregurgitant velocity is 3.5 m/s, the estimated right ventricular systolicpressure is 50 mmHg plus right atrial pressure. There is severelyincreased estimated pulmonary pressure by tricuspid regurgitation velocityand right atrial pressure. The pulmonic valve is normal. No pulmonaryregurgitation. Masses, Effusion, Shunts There is no pericardial effusion. The inferior vena cava is not wellvisualized, respiratory size variation not well visualized. No left toright shunting was detected by limited color flow Doppler interrogation ofthe interatrial septum. MEASUREMENTS AND CALCULATIONS 2-D Measurements and LV Function: LVID (d) 4.8 cm LV FS% (2D) 32% LVID (s) 3.2 cm LVOT diameter2.2 cm IVS (d) 1.1 cm HR 69bpm LVPW (d) 1.0 cm LA Vol index 37ml/m2 Ao Sinus 3.4 cm RA Vol index 52ml/m2 Ao Sinus ULN 3.8 cm * RA area 28cm Asc Ao 3.3 cm RV Basal Diam4.3 cm Asc Ao ULN 4.1 cm * RV Mid Diam2.4 cm LA 4.5 cm * Input BSA and age are outside of ranges, reported values correspond to BSA = 1.9 and Age = 82 Diastology: Mitral Tissue Doppler Pulmonary veins E Peak 2.3 m/s e', Septum 0.05 m/s Pulm s 34.6 cm/s e', Lateral 0.07 m/s Pulm d 51.4 cm/s E/e' Average 37.44 Pulm s/d ratio 0.67 Aortic Valve: Vmax 3.8 m/s RONALD (V) 0.65 cm VTI 0.97 m RONALD (I) 0.72 cm LVOT V max 0.6 m/s Max PG 57 mmHg LVOT VTI 0.18 m Mean PG 32 mmHg SV 70 ml Dim Index 0.18 SV index 37 ml/m CO 4.8 l/min CI 2.5 l/min/m Mitral Valve: MV Mean G 8 mmHg MV VTI 0.67 m Tricuspid Valve and estimated PA pressures: TR Vmax 3.5 m/s TAPSE 1.2 cm TR maxG 50 mmHg Pulmonic Valve: PV Vmax 1.7 m/s PIEDV 1.6 m/s . This study was interpreted by an [facility] accredited facility. CC: [facility] (med records) [facility], Med/Surg - IP [facility]. Final us Jamey Sprague MD ECHO ORD Final Resul t * SCAN-RADIOLOGY REPORT (09/25/2024 12:00 AM DIRECTOR OF APPLICATION DEVELOPMENT) Only the most recent of2 resultswithin the time period is included. Anatomical Region Laterality Modality Other us Scanner OTHER Final Result * SCAN-CT INTERPRETATION (09/25/2024 12:00 AM DIRECTOR OF APPLICATION DEVELOPMENT) Only the most recent of4 resultswithin the time period is included. Anatomical Region Laterality Modality Other us Scanner OTHER Final Result * XR DEXA BONE DENSITY 2 SITES (01/01/2011 3:10 PM CDT) Anatomical Region Laterality Modality Spine, HIPS, HIPL, HIPR Other Narrative 01/03/2011 2:26 PM CDT Please see scanned document for results of this study. Procedure Note Eun Hagen PA - 01/03/2011 Please see scanned document for results of this study. us Ceci rinaldi Result from Last 3 Months or Most Recently Relevant to Health Maintenance Insurance [id number] [place], [place] [id number] MEDICARE PB ONLY MEDICARE PART B HB ONLY MEDICARE PART A HB ONLY [facility] PB ONLY [facility] HB ONLY FOR LIFE [facility] [id number] [place] [address] HC MEDICARE PPS 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
--- NOTE | 2024-11-03 23:16 | CRLHL7_ITS ---
For Patients: As a result of the Century Cures Act, medical imaging exams and procedure reports are released immediately into your electronic medical record. You may view this report before your referring provider. If you have questions, please contact your health care provider. INDICATION: Head injury from Fall, on coumadin TECHNIQUE: CT Head without i.v. contrast. Coronal and sagittal reformats were obtained. COMPARISON: 09/25/2024 FINDINGS: CSF space: Unremarkable for age. Brain: No evidence of mass, acute infarction or hemorrhage is seen. No mass-effect or midline shift is seen. Mild diffuse cortical atrophy is noted. The brain parenchyma is otherwise normal in appearance with preservation of the meeks-white matter junction. Calvarium: The visualized paranasal sinuses are well aerated. The mastoid air cells are clear. The visualized orbits are grossly unremarkable. The calvarium is unremarkable in appearance with no fractures identified. A trace scalp hematoma is present over the right parietal region. IMPRESSION: 1. No evidence of acute infarction, intracranial hemorrhage, or mass-effect seen. Dictated by Miguel Locke MD @ 11/03/2024 11:46:45 PM Please note that all CT scans at this facility use dose modulation, iterative reconstruction, and/or weight-based dosing when appropriate to reduce radiation dose to as low as reasonably achievable. Dictated by: Miguel Locke MD @ 11/03/2024 23:46:49 (Electronically Signed)
--- NOTE | 2024-11-03 23:16 | CRLHL7_ITS ---
For Patients: As a result of the Century Cures Act, medical imaging exams and procedure reports are released immediately into your electronic medical record. You may view this report before your referring provider. If you have questions, please contact your health care provider. INDICATION: Cervical spine injury from Fall, on coumadin TECHNIQUE: CT cervical spine without i.v. contrast. Coronal and sagittal reformats were obtained. COMPARISON: 09/25/2024 FINDINGS: Alignment: Trace anterolisthesis of C7-T1 is noted without change. Bone: No acute fractures or aggressive bone lesions are identified. Disc: Severe degenerative disc disease is present from C2-3 through C6-7. Scattered facet osteoarthritis is noted bilaterally. Soft tissue: The prevertebral soft tissues are unremarkable in appearance. The visualized lung apices and mediastinum are unremarkable. Bilateral calcified carotid plaques are noted. IMPRESSION: 1. No acute osseous injuries are identified. Dictated by Miguel Locke MD @ 11/03/2024 11:53:06 PM Please note that all CT scans at this facility use dose modulation, iterative reconstruction, and/or weight-based dosing when appropriate to reduce radiation dose to as low as reasonably achievable. Dictated by: Miguel Locke MD @ 11/03/2024 23:53:17 (Electronically Signed)
[2024-11-03 23:17] VITALS: BP 103/67; PULSE 78; RESP 18; TEMP 36.7; O2SAT 92
--- NOTE | 2024-11-03 23:23 | CRLHL7_ITS ---
For Patients: As a result of the Century Cures Act, medical imaging exams and procedure reports are released immediately into your electronic medical record. You may view this report before your referring provider. If you have questions, please contact your health care provider. INDICATION: Face injury from Fall, on coumadin TECHNIQUE: CT maxillofacial without i.v. contrast. Coronal and sagittal reformats were obtained. COMPARISON: None FINDINGS: Bone: Large dental cavities with periodontal abscesses are seen surrounding the right maxillary teeth. A chronic appearing right nasal bone fracture is noted. No acute fractures or aggressive bone lesions are identified. Joint: The temporomandibular joints are unremarkable in appearance. Sinus: The sinuses are well-aerated with no significant mucosal thickening or retained secretions seen. The ostiomeatal units are patent. The nasal turbinates are normal. The nasal septum is midline and intact. Orbit: The patient is status post prior bilateral cataract removal. The visualized orbits are grossly unremarkable. Soft tissue: There is a 1 cm round nodule within the right vallecula. IMPRESSIONS: 1. No acute osseous injuries or abnormalities are seen. 2. There is a 1 cm round nodule within the right vallecula. Further assessment with direct visualization is recommended to exclude a mass. Dictated by Miguel Locke MD @ 11/03/2024 11:57:48 PM Please note that all CT scans at this facility use dose modulation, iterative reconstruction, and/or weight-based dosing when appropriate to reduce radiation dose to as low as reasonably achievable. Dictated by: Miguel Locke MD @ 11/03/2024 23:57:53 (Electronically Signed)
--- NOTE | 2024-11-03 23:43 | ED.FALL ---
HPI - Fall General Chief Complaint: Fall/Minor Trauma Stated Complaint: fall Time Seen by Provider: 11/03/24 23:42 History of Present Illness HPI Narrative: This 84-year-old female was brought in by ambulance from her assisted living in [place] where she resides after a fall. She pressed her lifeline button. Details of the fall are unknown. She has obvious facial trauma, they did place her in a C-collar. There is a laceration in her eyelid, along her right ear. The left eyelid has laceration. It is unknown if there was loss of consciousness. She is on Coumadin. Her daughter did come with her, this is her 3rd fall in the last 3 months. She did just have a CT of her lumbar spine this past week for recent fall, there were no acute traumatic changes but she did have significant degenerative changes. Her daughter did show me the report. Patient is extremely hard of hearing. She has chronic pain complaints, very difficult to sort out what is acute or chronic. We knee Jazmín went over her arms, chest, abdomen, legs and there is no pain complaints. Nursing staff did appropriate call a trauma team activation on arrival given the mechanism. On arrival, patient was alert, hard of hearing, breathing independently, airway patent but there was superficial noted laceration of her left eyelid, minimal oozing, bruising and probable laceration right ear. No active extravasation of any blood noted. GCS appeared to be 15/15. Patient did have facial swelling and bruising around the left eye, some dried blood around her nose. When she did speak speech was normal. CT of her head, facial bones and cervical spine were Related Data Home Medications ?Medication ?Instructions ?Recorded ?Confirmed albuterol sulfate 90 mcg/actuation 2 puff inhalation Q4H PRN 09/01/23 09/25/24 aerosol inhaler atorvastatin 10 mg tablet 10 mg PO HS 09/01/23 09/25/24 dronedarone 400 mg tablet (Multaq) 200 mg PO BIDWMEAL 09/01/23 09/25/24 furosemide 20 mg tablet 20 mg PO DAILY PRN 09/01/23 09/25/24 gabapentin 300 mg capsule 300 mg PO HS 09/01/23 09/25/24 levothyroxine 112 mcg tablet 112 mcg PO DAILY 09/01/23 09/25/24 metoprolol succinate 50 mg 25 mg PO DAILY 09/01/23 09/25/24 tablet,extended release 24 hr warfarin 2 mg tablet 2 mg PO SUTUWETHFRSA 09/01/23 09/25/24 calcium 600 mg (as 1 tab PO BID 09/25/24 09/25/24 carbonate)-vitamin D3 10 mcg (400 unit) tablet (Calcium with Vitamin D) docusate sodium 100 mg capsule 100 - 300 mg PO DAILY PRN 09/25/24 09/25/24 fluoxetine 10 mg capsule 10 mg PO DAILY 09/25/24 09/25/24 fluticasone propionate 230 2 inh inhalation BID 09/25/24 09/25/24 mcg-salmeterol 21 mcg/actuation HFA inhaler methyl salicylate-menthol topical 1 ea topical TID PRN 09/25/24 09/25/24 ointment mupirocin 2 % topical ointment 1 applic topical BID PRN 09/25/24 09/25/24 warfarin 2 mg tablet 3 mg PO MO 09/25/24 09/25/24 zolpidem 5 mg tablet (Ambien) 5 mg PO HS 09/25/24 09/25/24 Previous Rx's ?Medication ?Instructions ?Recorded spironolactone 25 mg tablet 12.5 mg (1/2 x 25 mg) PO DAILY #15 09/02/23 tabs Allergies Allergy/AdvReac Type Severity Reaction Status Date / Time lisinopril Allergy Unknown Verified 09/25/24 06:19 Review of Systems Narrative: Difficult to assess due to patient's limited hearing, to the best of her ability on arrival really did not have any complaints. 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) use of anticoagulants (ICD-10) Stage 3 chronic kidney disease ?N18.30 - Chronic kidney disease, stage 3 unspecified (ICD-10) Anxiety ?F41.9 - Anxiety disorder, unspecified (ICD-10) Cognitive impairment ?R41.89 - Other symptoms and signs involving cognitive functions and awareness (ICD-10) Generalized osteoarthritis ?M15.9 - Polyosteoarthritis, unspecified (ICD-10) Lumbar spinal stenosis ?M48.061 - Spinal stenosis, lumbar region without neurogenic claudication (ICD-10) Hyperlipidemia ?E78.5 - Hyperlipidemia, unspecified (ICD-10) Asthma ?J45.909 - Unspecified asthma, uncomplicated (ICD-10) Depression ?F32.A - Depression, unspecified (ICD-10) Chronic, continuous use of opioids ?F11.90 - Opioid use, unspecified, uncomplicated (ICD-10) Chronic back pain ?M54.9 - Dorsalgia, unspecified (ICD-10) ?G89.29 - Other chronic pain (ICD-10) Insomnia ?G47.00 - Insomnia, unspecified (ICD-10) Fibromyalgia ?M79.7 - Fibromyalgia (ICD-10) Sleep apnea ?G47.30 - Sleep apnea, unspecified (ICD-10) Obesity ?E66.9 - Obesity, unspecified (ICD-10) History of stroke ?Z86.73 - Personal history of transient ischemic attack (TIA), and cerebral infarction without residual deficits (ICD-10) Medical non-compliance ?Z91.199 - Patient's noncompliance with other medical treatment and regimen due to unspecified reason (ICD-10) Heart failure with preserved ejection fraction ?I50.30 - Unspecified diastolic (congestive) heart failure (ICD-10) Atrial fibrillation ?I48.91 - Unspecified atrial fibrillation (ICD-10) Hypertension ?I10 - Essential (primary) hypertension (ICD-10) Hypothyroidism ?E03.9 - Hypothyroidism, unspecified (ICD-10) Surgical History History of bilateral knee arthroplasty ?Z96.653 - Presence of artificial knee joint, bilateral (ICD-10) History of hysterectomy ?Z90.710 - Acquired absence of both cervix and uterus (ICD-10) History of surgery on right wrist ?Z98.890 - Other specified postprocedural states (ICD-10) History of arthroplasty of left shoulder ?Z96.612 - Presence of left artificial shoulder joint (ICD-10) History of cataract surgery ?Z98.49 - Cataract extraction status, unspecified eye (ICD-10) History of implantable cardioverter-defibrillator (ICD) placement ?Z95.810 - Presence of automatic (implantable) cardiac defibrillator (ICD-10) Family History Other AAA (abdominal aortic aneurysm) Lung cancer Social History Narrative: she lives in a senior apartment in [place]. 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 She gets meals there but does some of her own cooking. She walks with a walker when she leaves her apartment and walks with a cane inside her apartment. She has a nurse come by weekly and set up her medications. She also has a director of casework department that she was visiting with today. She does not smoke. She does not drink alcohol. Her daughter Fatimah is healthcare power of porter sample case. Her granddaughter is 1 of her care providers as well. Code status is DNR. What is your current living situation?: I presently have a place to live Problems where you live: no known problems Problems where you live details: no known problems In the past 12 months, utilities in danger of being shut off: no In past 12 months, lack of transportation kept you from medical appts, meetings, work, or getting things needed for daily living: no In the past 12 mos, have been you worried that your food would run out before you had money to buy more?: never true In the past 12 mos, the food you bought just didn't last and you didn't have money to buy more?: never true Highest level of school completed/degree received: high school graduate Smoking Status: Never smoker Do you use any of these nicotine containing products: None Second hand tobacco smoke exposure: No How often do you have a drink containing alcohol: never How often do you have six or more drinks on one occasion: Never AUDIT-C Alcohol total score: 0 Non-prescribed substance use: denies use Caffeine: Yes (Pepsi daily) How often does anyone, including family, friends and others, physically hurt you: never How often does anyone, including family, friends and others, insult or talk down to you: never How often does anyone, including family, friends and others, threaten you with harm: never How often does anyone, including family, friends and others, scream or curse at you: never service: No Exam Const: Vital Signs, click to edit/add: Vital Signs - 24 hr 11/03/24 23:17 11/04/24 00:52 11/04/24 00:52 Temperature 98.1 F 97.8 F Pulse Rate [Pulse Oximeter] 78 71 Respiratory Rate 18 16 Blood Pressure [Ri ght Upper Arm] 103/67 91/60 Pulse Oximetry 92 94 94 Oxygen Delivery Me thod Room Air Nasal Cannula Oxygen Flow Rate 2 11/04/24 01:14 Temperature Pulse Rate [Pulse Oximeter] 72 Respiratory Rate 18 Blood Pressure [Ri ght Upper Arm] 90/64 Pulse Oximetry 92 Oxygen Delivery Me thod Nasal Cannula Oxygen Flow Rate [address] imaging, C-collar is still on. There is bruising and possible laceration left upper ear, cannot completely visualize due to the C-collar. Staff did assist with log-rolling, can see no bleeding on the back of her head, back without any traumatic change. She does complain of pain generally when I am palpating but feel no step-offs. She is known to have significant lumbar back pain. Her GCS is still 15/15. There is a jagged laceration into the subcutaneous tissues of her eyelid, along the outer border of the upper eyelids the laceration is through and through and extends down to the border of the eyelid. There is minimal oozing. Pupil seemed to be equal round, conjugate gaze. She has bruising and ecchymosis around this periorbital area. Some dried blood in the nose but no active bleeding, do wonder foot was bleeding from her face that maybe went into her nose. There is no bruising or tenderness over the nasal bridge. No active traumatic change noted in the oropharynx. Lungs are clear, no tachypnea, no wheezing. CV regular but loud systolic ejection murmur heard, normal S1-S2. Abdomen seems to be soft, nontender, do not feel any organomegaly or masses. She is wiggling her hands, does wiggle her feet. Palpating over her arms in over her legs in general she does not have any definite complaints of pain at this time. She moves her feet and ankles, no complaints of any pain. Will try to disrobe pants so I can look at her extremities. Documenting provider has reviewed patient's vital signs: yes Course Reevaluation(s) Time of Reevaluation #1: 00:13 Reevaluation #1: Patient now complaining of significant pain, was able to isolate to her right knee. She has significant ecchymosis and swelling overlying this anterior right knee, old scar from presumed knee replacement. She complains of pain with any movement. Initially we did go over her legs, she stated she was not having any pain but there may be a component of her not hearing very well in this. She obviously is having right knee pain now. Will look at some basic portable x-rays to see if there is fracture. Will work on pain management for her. Did initially order some fentanyl with some Zofran and then subsequently some Tylenol. Did ask nursing staff to get an ice pack on the knee for the bruising. Time of Reevaluation #2: 01:02 Reevaluation #2: Her right ear essentially has a superficial skin tear. Skin is very thin, do not think sutures will hold this. Did use Steri-Strips and was able to get wound reapproximation, no active bleeding. They did seem to be holding just fine. Time of Reevaluation #3: 01:12 Reevaluation #3: For her eyelid laceration, we did page [facility], they were paging out the freelance digital project manager in we have not heard back yet. Will call regions back [address] more [address] Stafford at [facility], they would be willing to take her and assess the eyelid laceration and can call Ophthalmology. Vital Signs Vital signs: Initial Vital Signs Temperature 98.1 F 11/03/24 23:17 Temperature Source Temporal Artery Scan 11/03/24 23:17 Pulse Rate 78 11/03/24 23:17 Respiratory Rate 18 11/03/24 23:17 Blood Pressure 103/67 11/03/24 23:17 Blood Pressure Mean 79 11/03/24 23:17 Blood Pressure Position Sitting 11/03/24 23:17 Pulse Oximetry 92 11/03/24 23:17 Oxygen Delivery Method Room Air 11/03/24 23:17 Vital Signs Temperature 98.1 F 11/03/24 23:17 Pulse Rate 78 11/03/24 23:17 Respiratory Rate 18 11/03/24 23:17 Blood Pressure 103/67 11/03/24 23:17 Pulse Oximetry 92 11/03/24 23:17 Oxygen Delivery Method Room Air 11/03/24 23:17 Temperature 97.8 F 11/04/24 00:52 Pulse Rate 70 11/04/24 01:34 Respiratory Rate 18 11/04/24 01:34 Blood Pressure 91/60 11/04/24 01:34 Pulse Oximetry 94 11/04/24 01:34 Oxygen Delivery Method Nasal Cannula 11/04/24 01:34 Oxygen Flow Rate 2 11/04/24 01:34 Medications Administered Medications: Discontinued Medications Generic Name Dose Route Start Last Admin Trade Name Fátima PRN Reason Stop Dose Admin Acetaminophen 1,000 mg 11/04/24 00:44 11/04/24 00:51 Acetaminophen 500 Mg Tablet PO 11/04/24 00:45 1,000 mg ONCE ONE Administration Fentanyl 25 mcg 11/04/24 00:19 11/04/24 00:30 Fentanyl 100 Mcg/2 Ml Inj IVP 11/04/24 00:20 25 mcg ONCE ONE Administration Fentanyl 25 mcg 11/04/24 01:51 11/04/24 01:55 Fentanyl 100 Mcg/2 Ml Inj IVP 11/04/24 01:52 25 mcg ONCE ONE Administration Ondansetron HCl 4 mg 11/04/24 00:19 11/04/24 00:30 Ondansetron 2 Mg/Ml Inj IVP 11/04/24 00:20 4 mg ONCE ONE Administration - Fall Lab Data Attestation: I reviewed the patient's lab results. Labs: Lab Results 11/04/24 Range/Units 00:20 WBC 6.67 (4.50-11.00) K/uL RBC 3.98 L (4.00-5.20) m/uL Hgb 11.8 L (12.0-16.0) gm/dL Hct 37.1 (33.0-51.0) % MCV 93 (80-100) fL MCH 30 (26-34) pg MCHC 32 (32-36) gm/dL RDW Coeff of Angela 15.2 (11.5-15.5) % Plt Count 145 (140-440) K/uL Neut % (Auto) 60.8 (42.0-72.0) % Lymph % (Auto) 27.1 (20-44) % [place] % (Auto) 10.5 (0.0-11.0) % Eos % (Auto) 1.2 (0.0-7.0) % Baso % (Auto) 0.1 (0.0-3.0) % Neut # (Auto) 4.05 (1.7-7.0) K/uL Lymph # (Auto) 1.81 (0.90-2.90) K/uL [place] # (Auto) 0.70 (0.00-0.90) K/UL Eos # (Auto) 0.08 (0.00-0.50) K/uL Baso # (Auto) 0.01 (0.00-0.30) K/uL Abs Immat Gran (auto) 0.02 (0.00-0.30) K/uL Imm/Tot Granulo (auto) 0.3 % INR 3.13 H (0.91-1.10) Sodium 131 L (135-149) mmol/L Potassium 3.1 L (3.6-5.1) mmol/L Chloride 90 L (96-114) mmol/L Carbon Dioxide 35 H (20-32) mmol/L Anion Gap 6 L (7-15) mEq/L BUN 25 (7-30) mg/dL Creatinine 1.7 H (0.5-1.5) mg/dL Estimated GFR 30 ml/min Glucose 103 (60-115) mg/dL Calcium 9.0 (8.4-10.6) mg/dL Total Bilirubin 1.8 H (0.1-1.5) mg/dL AST 29 (12-35) U/L ALT 16 (4-35) U/L Alkaline Phosphatase 213 H (40-150) U/L Total Protein 6.9 (6.0-8.3) g/dL Albumin 3.7 (3.3-5.0) g/dL Imaging Data CT scan - head: Attestation: I have reviewed the pertinent imaging results. Radiologist's impression: Patient: JUVENAL BLOODING Facility:?[facility] Patient ID:?[id number] Site Patient ID:?[id number]. Site :?[id number] Study:?CT-Head W/O CODE TRAUMA-11/03/2024 11:38:17 PM Ordering Physician:?Miloomel-Ribera Palmira Final Report: INDICATION: Head injury from Fall, on coumadin TECHNIQUE: CT Head without i.v. contrast. Coronal and sagittal reformats were obtained. COMPARISON: 09/25/2024 FINDINGS: CSF space: Unremarkable for age. Brain: No evidence of mass, acute infarction or hemorrhage is seen. No mass-effect or midline shift is seen. Mild diffuse cortical atrophy is noted. The brain parenchyma is otherwise normal in appearance with preservation of the meeks-white matter junction. Calvarium: The visualized paranasal sinuses are well aerated. The mastoid air cells are clear. The visualized orbits are grossly unremarkable. The calvarium is unremarkable in appearance with no fractures identified. A trace scalp hematoma is present over the right parietal region. IMPRESSION: 1. No evidence of acute infarction, intracranial hemorrhage, or mass-effect seen. Dictated by Miguel Locke MD @ 11/03/2024 11:46:45 PM Please note that all CT scans at this facility use dose modulation, iterative reconstruction, and/or weight-based dosing when appropriate to reduce radiation dose to as low as reasonably achievable. Dictated by: Miguel Locke MD @ 11/03/2024 23:46:49 (Electronic Signature) CT cervical spine: Attestation: I have reviewed the pertinent imaging results. Radiologist's impression: Patient: [facility] Facility:?[facility] Patient ID:?[id number] Site Patient ID:?[id number]. Site :?[id number] Study:?CT-Spine Cervical CODE TRAUMA-11/03/2024 11:39:16 PM Ordering Physician:Marcos Chavis Final Report: INDICATION: Cervical spine injury from Fall, on coumadin TECHNIQUE: CT cervical spine without i.v. contrast. Coronal and sagittal reformats were obtained. COMPARISON: 09/25/2024 FINDINGS: Alignment: Trace anterolisthesis of C7-T1 is noted without change. Bone: No acute fractures or aggressive bone lesions are identified. Disc: Severe degenerative disc disease is present from C2-3 through C6-7. Scattered facet osteoarthritis is noted bilaterally. Soft tissue: The prevertebral soft tissues are unremarkable in appearance. The visualized lung apices and mediastinum are unremarkable. Bilateral calcified carotid plaques are noted. IMPRESSION: 1. No acute osseous injuries are identified. Dictated by Miguel Locke MD @ 11/03/2024 11:53:06 PM Please note that all CT scans at this facility use dose modulation, iterative reconstruction, and/or weight-based dosing when appropriate to reduce radiation dose to as low as reasonably achievable. Dictated by: Miguel Locke MD @ 11/03/2024 23:53:17 (Electronic Signature) CT facial bones: Attestation: I have reviewed the pertinent imaging results. Radiologist's impression: Patient: JUVENAL BLOODING Facility:?[facility] Patient ID:?[id number] Site Patient ID:?[id number]. Site :?[id number] Study:?CT-Facial W/O CODE TRAUMA-11/03/2024 11:39:51 PM Ordering Physician:Marcos Chavis Final Report: INDICATION: Face injury from Fall, on coumadin TECHNIQUE: CT maxillofacial without i.v. contrast. Coronal and sagittal reformats were obtained. COMPARISON: None FINDINGS: Bone: Large dental cavities with periodontal abscesses are seen surrounding the right maxillary teeth. A chronic appearing right nasal bone fracture is noted. No acute fractures or aggressive bone lesions are identified. Joint: The temporomandibular joints are unremarkable in appearance. Sinus: The sinuses are well-aerated with no significant mucosal thickening or retained secretions seen. The ostiomeatal units are patent. The nasal turbinates are normal. The nasal septum is midline and intact. Orbit: The patient is status post prior bilateral cataract removal. The visualized orbits are grossly unremarkable. Soft tissue: There is a 1 cm round nodule within the right vallecula. IMPRESSIONS: 1. No acute osseous injuries or abnormalities are seen. 2. There is a 1 cm round nodule within the right vallecula. Further assessment with direct visualization is recommended to exclude a mass. Dictated by Miguel Locke MD @ 11/03/2024 11:57:48 PM Please note that all CT scans at this facility use dose modulation, iterative reconstruction, and/or weight-based dosing when appropriate to reduce radiation dose to as low as reasonably achievable. Dictated by: Miguel Locke MD @ 11/03/2024 23:57:53 (Electronic Signature) XR right knee: Attestation: I have reviewed the pertinent imaging results. My impression: I do not appreciate any fracture of her knee on my review of the images. Radiologist's impression: Patient: JUVENAL ELAINE Facility:?[facility] Patient ID:?[id number] Site Patient ID:?[id number]. Site :?1940 Study:?XRay-Knee Right CODE TRAUMA-11/04/2024 12:22:02 AM Ordering Physician:?Kamila Chavis Final Report: INDICATION: Fall, pain. TECHNIQUE: Right knee 2 view. COMPARISON: None. FINDINGS: No acute fracture or dislocation. Right total knee arthroplasty with patellar resurfacing. Hardware appears intact without radiographic evidence of loosening. There is a small chronic appearing osseous density superior to the patella. No significant knee joint effusion. Diffuse soft tissue edema with more prominent swelling in the prepatellar region. IMPRESSION: 1. Diffuse soft tissue edema with more prominent swelling in the prepatellar region. No fracture identified. 2. Intact right TKA without evidence of hardware failure. Dictated by Caro Mae MD @ 11/04/2024 12:36:08 AM (Electronic Signature) ECG Data Attestation: I personally reviewed and interpreted this ECG as follows: (AV dual paced rhythm, 75 beats per minute.) ECG interpretation date: 11/04/24 ECG interpretation time: 01:09 Discharge Plan Discharge Clinical Impression: Fall, Eyelid laceration, left, Skin tear Patient Disposition: [facility] Discharge Location: [facility] Condition: Stable
--- NOTE | 2024-11-04 00:10 | CRLHL7_ITS ---
For Patients: As a result of the Cures Act, medical imaging exams and procedure reports are released immediately into your electronic medical record. You may view this report before your referring provider. If you have questions, please contact your health care provider. INDICATION: Fall, pain. TECHNIQUE: Right knee 2 view. COMPARISON: None. FINDINGS: No acute fracture or dislocation. Right total knee arthroplasty with patellar resurfacing. Hardware appears intact without radiographic evidence of loosening. There is a small chronic appearing osseous density superior to the patella. No significant knee joint effusion. Diffuse soft tissue edema with more prominent swelling in the prepatellar region. IMPRESSION: 1. Diffuse soft tissue edema with more prominent swelling in the prepatellar region. No fracture identified. 2. Intact right TKA without evidence of hardware failure. Dictated by Caro Mae MD @ 11/04/2024 12:36:08 AM (Electronically Signed)
--- OUTSIDE RECORDS SUMMARY | 2024-11-04 00:12 | XMS_ITS | Clinical Summary ---
Author Organization [employer] [facility] [facility] Address [facility] [place] [address] Care Team Providers Care Plaster Lather Name Role Phone Jamey Sprague MD Primary Care Provider [phone] Karen Baron RN Unavailable [phone] [facility] [place] Unavailable [phone] Allergies Active Allergy Reactions Criticality Noted Date [...] daily. 45 Tablet 08/14/19 25 11:34 AM TRUCK DRIVER TEAMSTER 025 2024 Disconti nued(Reo rder (E-cance l not sent)) HYDROcodone-acetaminoph en (5-325 mg/tablet)Indications:C ontrolled substance agreement signed,Chronic bilateral low back pain without sciatica,Spinal stenosis of lumbar region without neurogenic claudication Take 1 tablet by mouth 3 times daily as needed for severe pain 90 Tablet 09/14/19 25 7:20 PM TRUCK DRIVER TEAMSTER 025 2024 Disconti nued(Reo rder (E-cance l [...] Casanova has elected to enroll in the [facility] research project and meets inclusion criteria through diagnosis of heart failure. Paola Denney is assigned as [facility] Care Guide. Paola Denney .................... 02/19/2013 12:18 [...] Issue of repeat prescriptions 01/03/2011 Overview (03/05/2019): Keno 5/325 #120/month. Spinal stenosis of lumbar re [...] Jazmín Cheung as her primary healthcare agent. [phone]. Her son Star Ibrahim is no longer her healthcare agent as of 10/14/14. Understanding of Illness and Disease Johnson: Juvenal identifies her medical condition as heart [...] strong preference to not go to a fdc. Of utmost importance to Juvenal is that [...] I don't want to go to a fdc. to focus treatment on comfort and quality [...] stops' OR I have little chance of intermediate manager survival if my heart stops and the [...] care agents to follow up with this writer technical publications (Benja Linares, [facility]) if and when there are questions related to Advance Care Planning, and/or Health Care Agent information/understanding. Juvenal would benefit from: Home Care Care Navigation Help Desk Care Navigation brochure(s) was given to Juvenal. Advance Care Planning recommendations and Juvenal's concerns and questions were cc e d to her primary provider. Interviewer: Benja Linares, [employer], [facility] [phone] 10/13/2013 11:37 AM 10/07/2013 H/O CVA (cerebral vascular accident) 08/03/2010 Overview (12/06/2010): -Hospitalized in [place] Superficial phlebitis 08/01/2010 Hyperlipidemia 07/06/2010 Major depression, [...] Description 11/01/2024 12:00 PM CDT Ancillary Procedure [facility] [address] [facility] [address] [place] [address] Arrived 11/01/2024 Telephone [place] [id number] [place] [address] Jamey Sprague MD Results 11/01/2024 Travel 10/29/2024 3:15 PM CDT Ancillary Procedure [place] [id number] [place] [address] 10/29/2024 2:35 PM CDT Office Visit [place] [address] [place] [address] Jamey Sprague MD Back Pain; Follow Up; Toe Pain/problem (rt toe ) 10/29/2024 Travel 10/21/2024 Refill [facility] [address] [place] [address] Jamey Sprague MD Refill Request (Keno) 10/20/2024 Refill [facility] [address] [place] [address] Jamey Sprague MD Refill Request (spironolactone) 10/07/2024 Telephone [place] [address] [place] [address] Jamey Sprague MD Form (PHYSICIAN ORDER) 10/06/2024 Anticoagulation (warfarin) [place] [id number] [place] [address] [facility] Inr Anticoagulation (HC POCT) 10/05/2024 9:00 AM CDT Office Visit [facility] [address] [facility] [address] [place] [address] Miguel Valdez MD Consult ([facility] 09/25; SEEN AT [facility] FOR FALL AND HYPOXIA//pt states she feels sore from falling but no cardiac symptoms. Moves very slow.) 10/05/2024 Travel 10/01/2024 11:15 AM TRUCK DRIVER TEAMSTER Office Visit [facility] [address] [facility] [place] [address] Jamey Sprague MD Hospital F/U (DOD 09/27/[address] [facility]) 10/01/2024 Travel 09/30/2024 Telephone [facility] [address] [place] [address] Jamey Sprague MD Form (ORDERS) 09/28/2024 Telephone [facility] [address] [place] [address] Jamey Sprague MD Questions 09/27/2024 10:00 AM TRUCK DRIVER TEAMSTER Ancillary Procedure [facility] [address] [place] [address] 09/27/2024 Telephone [facility] [address] [place] [address] Jamey Sprague MD Results 09/25/2024 Orders Only [facility] Scanner 1 scan: (1-Ord) [facility], ANGIO CHEST PE PROTOCOL , 09/25/2024 09/25/2024 Orders Only [facility] Scanner 1 scan: (1-Ord) [facility], KNEE LT 3V, 09/25/2024 09/25/2024 Orders Only [facility] Scanner 1 scan: (1-Ord) [facility], HEAD/BRAIN WO CON , 09/25/2024 09/25/2024 Orders Only [facility] Scanner 1 scan: (1-Ord) [facility], CHEST 2 VIEWS, 09/25/2024 09/25/2024 Orders Only [facility] Scanner 1 scan: (1-Ord) [facility], CERVICAL CPINE WO CON , 09/25/2024 09/25/2024 Orders Only [facility] Scanner 1 scan: (1-Ord) [facility], CERVICAL SPINE WO CON - HEAD , 09/25/2024 09/16/2024 Telephone [facility] [address] [place] [address] Jamey Sprague MD Anticoagulation (Annual re-enrollment /) 09/14/2024 Refill [facility] [address] [place] [address] Jamey Sprague MD Refill Request 09/13/2024 Telephone [facility] [address] [place] [address] Jamey Sprague MD Form (PHYSICIAN ORDER) 09/08/2024 Anticoagulation (warfarin) [facility] [address] [place] [address] [facility] Inr Anticoagulation (Home care) 08/27/2024 Telephone [facility] [address] [place] [address] Jamey Sprague MD Form (PHYSICIAN ORDER) 08/25/2024 Anticoagulation (warfarin) [facility] [address] [place] [address] [facility] (Home care) 08/16/2024 Refill [facility] [address] [place] [address] Jamey Sprague MD Refill Request (Synthroid) 08/13/2024 Refill [facility] [address] [place] [address] Jamey Sprague MD Refill Request (HYDROcodone-acetamin ophen (5-325 mg/tablet)) 08/11/2024 Refill [facility] [address] [place] [address] Jamey Sprague MD Refill Request (Spironolactone) from Last 3 Months Immunizations Immunization Administration [...] on file Legal Sex Female 7:13 AM TRUCK DRIVER TEAMSTER Gender Identity Not on file Sexual Orientation Not on file Obstetrics History Last Filed Vital Signs Vital Sign Reading Time Taken Comments Blood Pressure 98/64 10/29/2024 2:33 PM CDT Pulse 71 10/05/2024 9:01 AM CDT Temperature 36.2 C (97.1 F) 07/31/2023 9:06 AM TRUCK DRIVER TEAMSTER Respiratory Rate 16 10/29/2024 2:33 PM CDT [...] Info) Description 11/04/2024 10:00 AM CDT Appointment [facility] [address] [place] [address] Hugh Ramon, PT [address] [place] [address] Health Maintenance Due Date Last Done Comments [...] history exists Medical Devices Implanted Type Area Solid Tire Tuber Machine Operator Device Identifier Shelf Expiration Date Model / Serial / Lot Icd Only-12/03/2011 Implanted:02/2012 (Quantity not on file) ICD Only [employer] [id number] / [id number] / Iol Bosque Preload 1 Pc Clear 6mm 21.00 Diopter Tecnis - [id number] Implanted:Qty : 1 on 07/31/2023 by Singh Valentin MD at [facility] Opthalmology Implants Left: Eye [employer] 02/23/2026 [id number] / [id number] / N/A Iol Bosque Preload 1 Pc Clear 6mm 20.50 Diopter [employer]ecnis - [id number] Implanted:Qty : 1 on 07/03/2023 by Singh Valentin MD at [facility] Right: Eye [employer] 03/10/2026 [id number] / [id number] / NA Procedures Procedure Name Priority [...] CDT Routine general medical examination at a [facility] care facility ECHO TTE COMPLETE WO CONTRAST Routine 09/27/2024 11:15 AM TRUCK DRIVER TEAMSTER Syncope SCAN-CT INTERPRETATION 5 12:00 AM TRUCK DRIVER TEAMSTER SCAN-RADIOLOGY REPORT 09/25/2024 12:00 AM TRUCK DRIVER TEAMSTER SCAN-CT INTERPRETATION 5 12:00 AM TRUCK DRIVER TEAMSTER SCAN-RADIOLOGY REPORT 09/25/2024 12:00 AM TRUCK DRIVER TEAMSTER SCAN-CT INTERPRETATION 5 12:00 AM TRUCK DRIVER TEAMSTER SCAN-CT INTERPRETATION 5 12:00 AM TRUCK DRIVER TEAMSTER XR DXA BONE DENSITY 2 SITES AXIAL [...] result of the Century Cures Act, medical imaging exams and procedure [...] PM (Electronically Signed) Procedure Note Richelle Humphrey, DO - 11/01/2024 For Patients: As a result [...] midfoot no signs of acute fracture. No [id number]. IMPRESSION : No signs of acute fracture [...] QT 542 ms QTc 588 ms P [place] 5 degrees R [place] -79 degrees T [place] 98 degrees 10/05/2024 9:04 AM CDT 10/11/2024 11:48 AM CDT us Miguel Valdez MD EKG ORD Final Result * ECHO TTE COMPLETE WO CONTRAST (09/27/2024 11:15 AM TRUCK DRIVER TEAMSTER) AORTIC VALVE MEAN PG 32 mmHg EJECTION FRACTION 65 % PEAK TR VELOCITY 3.5 m/s LVEDD 4.8 cm EJECTION FRACTION 55 - 60% Anatomical Region Laterality Modality Ultrasound 09/27/2024 10:4 2 AM TRUCK DRIVER TEAMSTER Narrative 09/27/2024 11:45 AM TRUCK DRIVER TEAMSTER ECHOCARDIOGRAM JUVENAL CASANOVA : 1940 84 years Study Date: 09/27/2024 10:42:01 AM Gender: F BP: 113/67 mmHg Height: 163.00 cm BSA: 1.91 m Weight: 85.00 kg Tech: CHAPO Referring MD: JAMEY SPRAGUE Site: [facility] Reading Location: [facility] Patient Location: Inpatient. Procedure: 2D, Color Doppler [...] . This study was interpreted by an [facility] accredited facility. CC: HIM (med records) [facility], Med/Surg - IP [facility]. Final Procedure Note Shay Aguliera MD - 09/27/2024 ECHOCARDIOGRAM JUVENAL CASANOVA : 1940 84 years Study Date: 09/27/2024 10:42:01 AM Gender: F BP: 113/67 mmHg Height: 163.00 cm BSA: 1.91 m Weight: 85.00 kg Tech: CHAPO Referring MD: JAMEY SPRAGUE Site: [facility] Reading Location: Mobile- Patient Location: [...] MAC with calcified MV leaflets, moderate-severe stenosis [id number] at HR ~70bpm, mild regurgitation. 7. Mild-moderate [...] . This study was interpreted by an [facility] accredited facility. CC: HIM (med records) [facility], Med/Surg - IP [facility]. Final us Jamey Sprague MD ECHO ORD Final Resul t * SCAN-RADIOLOGY REPORT (09/25/2024 12:00 AM TRUCK DRIVER TEAMSTER) Only the most recent of2 resultswithin the time period is included. Anatomical Region Laterality Modality Other us Scanner OTHER Final Result * SCAN-CT INTERPRETATION (09/25/2024 12:00 AM TRUCK DRIVER TEAMSTER) Only the most recent of4 resultswithin the [...] for results of this study. 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 Healthcare Directive 10/19/2014 9:49 AM Healthcare Directive 10/01/2024 025 POLST 09/12/2023 Treatment Guidelines 12/06/2020 POLST 06/14/2016 3:01 PM FARM - 06/14/2016 Healthcare Directive 11/22/2013 1:[address] [employer] POLST 10/28/2013 9:31 AM FARM - * DNR (Latest Code Status on [...] 12:28 PM 08/02/2015 7:23 PM Care Teams Plaster Lather Relationship Specialty [place] [address] [place] [address] PCP - General Family Practice 04/02/22 [place] [address] [place] [address] Family Practice Registered Nurse 09/12/[address] [address] 11/03/24
[2024-11-04 00:26] LABS: Basophils Absolute Auto 0.01 K/uL (0.00-0.30); Basophils Percent Auto 0.1 % (0.0-3.0); Eosinophils Absolute Auto 0.08 K/uL (0.00-0.50); Eosinophils Percent Auto 1.2 % (0.0-7.0); Hematocrit 37.1 % (33.0-51.0); Hemoglobin* 11.8 gm/dL (12.0-16.0); Immature Granulocytes Abs Auto 0.02 K/uL (0.00-0.30); Immature Granulocytes Pct Auto 0.3 %; Lymphocytes Absolute Auto 1.81 K/uL (0.90-2.90); Lymphocytes Percent Auto 27.1 % (20-44); Mean Corpuscular HGB Conc 32 gm/dL (32-36); Mean Corpuscular Hemoglobin 30 pg (26-34); Mean Corpuscular Volume 93 fL (80-100); Monocytes Percent Auto 10.5 % (0.0-11.0); Neutrophils Absolute Auto 4.05 K/uL (1.7-7.0); Neutrophils Percent Auto 60.8 % (42.0-72.0); Platelet Count* 145 K/uL (140-440); RDW Coefficient of Variation % 15.2 % (11.5-15.5); Red Blood Count 3.98 m/uL (4.00-5.20); White Blood Count* 6.67 K/uL (4.50-11.00)
[2024-11-04 00:29] LABS: Slide Review Reflex No
[2024-11-04] MEDS: ONDANSETRON 2 MG/ML inj 4 MG IVP (00:30)
[2024-11-04] MEDS: fentaNYL 100 MCG/2 ML inj 25 MCG IVP ×2 (00:30→01:55)
[2024-11-04 00:38] LABS: Albumin* 3.7 g/dL (3.3-5.0); Chloride* 90 mmol/L (96-114); Sodium* 131 mmol/L (135-149)
[2024-11-04 00:39] LABS: Potassium* 3.1 mmol/L (3.6-5.1)
[2024-11-04 00:41] LABS: Alanine Aminotransferase* 16 U/L (4-35); Anion Gap 6 mEq/L (7-15); Aspartate Amino Transferase* 29 U/L (12-35); Blood Urea Nitrogen* 25 mg/dL (7-30); Carbon Dioxide* 35 mmol/L (20-32); Creatinine* 1.7 mg/dL (0.5-1.5); Estimated Glomerular Filt Rate 30 ml/min
[2024-11-04 00:42] LABS: Alkaline Phosphatase* 213 U/L (40-150); Bilirubin Total* 1.8 mg/dL (0.1-1.5); Glucose* 103 mg/dL (60-115); INR 3.13 (0.91-1.10); Prothrombin Time 33.5 Seconds; Total Protein* 6.9 g/dL (6.0-8.3)
[2024-11-04] MEDS: ACETAMINOPHEN 500 MG TABLET 1000 MG PO (00:51)
[2024-11-04 00:52] VITALS: BP 91/60; PULSE 71; RESP 16; TEMP 36.6; O2SAT 94
[2024-11-04 01:14] VITALS: BP 90/64; PULSE 72; RESP 18; O2SAT 92
[2024-11-04 01:34] VITALS: BP 91/60; PULSE 70; RESP 18; O2SAT 94
== END 2024-11-04 02:03 | disposition short-term general hospital (02) ==
PROVIDERS: Emergency Provider Family Medicine; PCP Family Medicine
DX: S01.112A Laceration without foreign body of left eyelid and periocular area, initial encounter (principal); S01.111A Laceration without foreign body of right eyelid and periocular area, initial encounter; M25.561 Pain in right knee; W18.30XA Fall on same level, unspecified, initial encounter; Z79.01 Long term (current) use of anticoagulants
CPT/HCPCS: 36415; 70450; 70486; 72125; 73560; 80053; 85025; 85610; 93005; 94761; 96374; 96375; 96376; 99284; 99285; 99291; A9270; G0390; J2405; J3010

== ENCOUNTER 2024-11-04 01:54 | Outpatient (CLI) | payer MEDICARE, OTHER, SELFPAY | END 2024-11-04 01:55 | disposition home or self-care (01) | LOC: AMB 11-05 09:09 | PROVIDERS: PCP Family Medicine; Visit Provider Family Medicine | DX: S01.112A Laceration without foreign body of left eyelid and periocular area, initial encounter (principal); S79.911A Unspecified injury of right hip, initial encounter; R29.6 Repeated falls; Z79.01 Long term (current) use of anticoagulants | CPT/HCPCS: A0425; A0433 ==